=== PATIENT | female | born 1990 | race Caucasian/White ===

== ENCOUNTER 2020-06-20 08:19 | Emergency (ER) | payer OTHER, SELFPAY ==
[2020-06-20 08:33] VITALS: BP 129/87; BP 132/66; PULSE 65; RESP 16; TEMP 36.7; O2SAT 100; O2SAT 99; BMI 21.7
--- NOTE | 2020-06-20 08:51 | US_ITS ---
EXAMINATION: US ABDOMEN LIMITED CLINICAL INFORMATION: Epigastric pain, nausea, vomiting. Question gallstone.. COMPARISON: CT 10/12/2019 TECHNIQUE: Real-time imaging of the right upper quadrant abdominal viscera. FINDINGS: PANCREAS: The visualized head and body of the pancreas appears unremarkable. Remainder of the pancreas is obscured by bowel gas. LIVER: Normal. The liver is normal in size. The liver contour is normal. Parenchymal echogenicity is normal. No focal hepatic lesion. There is no intrahepatic biliary duct dilatation seen. GALLBLADDER: Normal. The gallbladder is physiologically distended without evidence of stones, sludge, polyps, wall thickening or pericholecystic fluid. COMMON BILE DUCT: Normal in caliber measuring 0.3 cm in diameter. RIGHT KIDNEY: Normal. No hydronephrosis. No renal calculi or focal parenchymal lesions. The kidney measures 9.9 cm in maximum dimension. FREE FLUID: None. US/US abdomen limited IMPRESSION: Unremarkable abdominal ultrasound. No evidence of gallstones. No acute findings seen.
[2020-06-20 09:03] LABS: MANUAL DIFF FLAG NO
[2020-06-20 09:06] LABS: Basophils Percent Auto 0.2 % (0-2); Eosinophils Percent Auto 0.3 % (0-4); Hematocrit 33.1 % (37-47); Hemoglobin 10.5 g/dl (12.0-16.0); Imm Gran Abs Auto 0.02 X10*3/uL (0.00-0.03); Imm Gran Pct Auto 0.3 % (0.0-0.4); Lymphocytes Absolute Auto 0.9 X10*3/uL (1.2-4.9); Mean Corpuscular HGB Conc 31.7 g/dl (31.0-35.0); Mean Corpuscular Hemoglobin 22.5 pg (27.0-33.0); Mean Platelet Volume 9.3 fL (9.4-12.3); Monocytes Absolute Auto 0.1 X10*3/uL (0.1-1.2); Neutrophils Absolute Auto 5.3 X10*3/uL (2.0-8.3); Neutrophils Percent Auto 83.2 % (45-73); Platelet Count 401 X10*3/uL (160-400); Red Blood Count 4.66 X10*6/uL (4.20-5.50); Red Cell Distribution Width 19.9 % (11.0-16.0); White Blood Count 6.4 X10*3/uL (4.8-10.8)
[2020-06-20 09:12] LABS: INTERNATIONAL NORM RATIO 1.1 (0.9-1.1); Prothrombin Time 13.6 SEC (10.8-13.0)
[2020-06-20] MEDS: 0.9 % Sodium Chloride 1,000 ML 999 ML IVCONT (09:33)
[2020-06-20] MEDS: Ketorolac Tromethamine 15 MG/ML VIAL 30 MG IV (09:33)
[2020-06-20] MEDS: ondansetron HCL 4 MG/2 ML VIAL IVPUSH (09:33)
[2020-06-20 09:42] VITALS: BP 125/56; PULSE 54; RESP 18; O2SAT 99
[2020-06-20 09:49] LABS: Alanine Aminotransferase < 6 U/L (0-31); Albumin Level 4.5 g/dL (3.5-5.0); Alkaline Phosphatase 76 U/L (39-117); Anion Gap 13 (12-20); Aspartate Amino Transferase 12 U/L (5-31); Bilirubin Direct 0.4 mg/dL (0.0-0.5); Bilirubin Total 0.9 mg/dL (0.0-1.0); Blood Urea Nitrogen 9 mg/dL (9-16); Calcium 9.1 mg/dL (8.4-10.2); Carbon Dioxide 23 mmol/L (22-29); Chloride 105 mmol/L (96-108); Creatinine Clr Calc Pharmacy 90.7; Estimated Glomerular Filt Rate > 60; Glucose Random 104 mg/dL (60-115); Lipase 7 U/L (8-78); Potassium 4.4 mmol/l (3.3-5.1); Sodium 137 mmol/L (135-145); Total Protein 7.6 g/dL (6.5-8.0)
--- NOTE | 2020-06-20 09:56 | ED.ABDPAIN ---
HPI - Abdominal Pain General Chief Complaint: Abdominal Pain <ANGELITA Macedo Last Filed: 06/20/20 12:30> Stated Complaint: Chest Pain /N/V <ANGELITA Macedo Last Filed: 06/20/20 12:30> Time Seen by Provider: 06/20/20 08:40 <ANGELITA Macedo Last Filed: 06/20/20 12:30> Source: patient <ANGELITA Macedo Last Filed: 06/20/20 12:30> Mode of arrival: ambulatory <ANGELITA Macedo Last Filed: 06/20/20 12:30> Limitations: no limitations <ANGELITA Macedo Last Filed: 06/20/20 12:30> History of Present Illness HPI narrative: 29yoF c PMHx of anxiety, depression, asthma and renal calculi presenting to the ED with complaints of nausea/vomiting with epigastric abdominal pain since 02:00am radiating to chest. Denies bad food exposure. Denies recent travel. Denies sick contacts. Reports she is anxious over increased shootings in [place]. Denies any SI/HI/auditory visual hallucinations thoughts of self-injury. <ANGELITA Macedo Last Filed: 06/20/20 12:30> Related Data Home Medications: Previous Rx's Medication Instructions Recorded diphenhydramine HCl [Benadryl 50 mg PO Q8H PRN #10 tab 06/20/20 Allergy] famotidine [Pepcid] 20 mg PO BID #10 tab 06/20/20 metoclopramide HCl [Reglan] 10 mg PO Q6H PRN #10 tab 06/20/20 <ANGELITA Macedo Last Filed: 06/20/20 12:30> Allergies/Adverse Reactions: Allergies Allergy/AdvReac Type Severity Reaction Status Date / Time hydroxyprogesterone Allergy Severe ANAPHYLAXIS Verified 06/20/20 08:36 [From MOISÉS] strawberry [STRAWBERRY] Allergy Unknown ANAPHYLAXIS Verified 06/20/20 08:36 SEAFOOD Allergy Unknown SHORTNESS Uncoded 03/23/20 17:36 OF BREATH seafood Allergy Unknown anaphylaxis Uncoded 01/18/20 00:00 shellfish Allergy Unknown anaphylaxis Uncoded 01/18/20 00:00 strawberries Allergy Unknown swelling Uncoded 01/18/20 00:00 of lips and tongue <ANGELITA Macedo - Last Filed: 06/20/20 12:30> Review of Systems Review of Systems Constitutional : No Weight loss, No Fever, No Chills, No Fatigue, No Malaise ENT/Mouth: No sore throat, No Difficulty swallowing Cardiovascular : No Chest Pain, No SOB Respiratory : No Cough Gastrointestinal : + Nausea, + Vomiting, No Diarrhea, + abdominal Pain, no hemoptysis, No Hematochezia, No Melena Genitourinary : No irregular bleeding, No Dysuria, No Urinary Frequency, No Hematuria,No Urinary Incontinence, No Urgency, No Flank Pain Musculoskeletal : No joint pain, No Myalgias, No Joint Swelling Skin : No Skin Lesions, No rash Neuro : No Weakness, No Numbness, No Paresthesias, No Loss of Consciousness, No Dizziness, No Headache Psych : No Social Issues, Heme/Lymph: No Bruising, No Bleeding,No Lymphadenopathy Endocrine : No Polyuria, No Polydipsia, No Temperature Intolerance <ANGELITA Macedo - Last Filed: 06/20/20 12:30> Yes all other systems are reviewed and are negative <ANGELITA Macedo - Last Filed: 06/20/20 12:30> Physical Exam Vital Signs: Vital Signs: Last Vital Signs Temp 98.3 F 06/20/20 12:07 Pulse 55 06/20/20 12:07 Resp 16 06/20/20 12:07 BP 108/71 06/20/20 12:07 Pulse Ox 100 06/20/20 12:07 Body Mass Index 21.7 vital signs have been reviewed as normal and appeared to be correct. Blood pressure normal. Heart rate normal. Respiration rate normal. Temperature normal. Oxygen saturation normal. <ANGELITA Macedo - Last Filed: 06/20/20 12:30> Vital Signs: Last Vital Signs Temp 98.3 F 06/20/20 12:07 Pulse 55 06/20/20 12:07 Resp 16 06/20/20 12:07 BP 108/71 06/20/20 12:07 Pulse Ox 100 06/20/20 12:07 Body Mass Index 21.7 <Hung Grande MD - Last Filed: 07/02/20 09:09> Appearance: Alert. Oriented X3. No acute distress. Head: Normal external exam. Normocephalic. Eyes: PERRLA. EOMI. Conjunctiva and sclera normal. Eyelids normal. ENT: Pharynx normal. Uvula midline. Moist mucous membranes. Neck: Normal inspection. Neck supple. FROM. No adenopathy. No meningeal signs. CVS: Normal heart rate and rhythm. Heart sound normal. No murmurs noted. Pulses normal throughout. Respiratory: No respiratory distress. Painless inspiration. Breath sounds normal. No wheezes/rales/rhonchi noted. Chest nontender. No accessory muscle usage noted or decreased air movement noted. Abdomen: Soft and TTP at upper/epigastric/RUQ abdomen with guarding. No rigidity. Negative Acevedo sign. Bowel sounds normal in all 4 quadrants. No distention noted. No organomegaly noted. No visible injury noted. No rebound tenderness. Negative Rovsing sign. Negative obturator's sign. Negative psoas sign. Back: No CVA tenderness. Full range of motion noted. Skin: Skin warm and dry. Normal skin color. Normal skin turgor. No rashes/lesions/lacerations noted. Extremities: Extremities exhibit normal range of motion. Extremities nontender. Neuro: Oriented X 3. No motor deficit. No sensory deficit. Reflexes normal. <ANGELITA Macedo - Last Filed: 06/20/20 12:30> Course Course Course Narrative: 8:40am - 29yoF c PMHx of anxiety, depression, asthma and renal calculi presenting to the ED with complaints of nausea/vomiting with epigastric abdominal pain since 02:00am radiating to chest. - on exam vitals are within normal limits. Patient is tender to palpation to epigastric/right upper quadrant abdomen with dry heaving. Otherwise no other acute distress. - Concern for cholecystitis vs pancreatitis vs Viral syndrome - Plan: Labs, US of abd. Provide IVF's, zofran, toradol then re-evaluate <ANGELITA Macedo - Last Filed: 06/20/20 12:30> I have reviewed the chart <Hung Grande MD - Last Filed: 07/02/20 09:09> Reevaluation(s) Reevaluation #1: - Labs WNL. COVID/RSV/flu negative. Abdominal ultrasound negative for any acute processes. Serum negative. - patient still complaining of nausea therefore will give Benadryl Reglan at this time and re-evaluate. <ANGELITA Macedo - Last Filed: 06/20/20 12:30> Time: 10:30 <ANGELITA Macedo - Last Filed: 06/20/20 12:30> Reevaluation #2: Patient reports she feels a little bit nausea although her vomiting improved after the Benadryl and Reglan. Will give 12.5 mg of Phenergan and DC home with symptomatic treatment along with instructions to return if any new or worsening symptoms to follow-up with primary care provider. Patient understands agrees the plan. <ANGELITA Macedo - Last Filed: 06/20/20 12:30> Time: 12:29 <ANGELITA Macedo - Last Filed: 06/20/20 12:30> MDM - Abdominal Pain Medical Records Attestation: I reviewed the patient's medical records. <ANGELITA Macedo - Last Filed: 06/20/20 12:30> Lab Data Attestation: I reviewed the patient's lab results. <ANGELITA Macedo - Last Filed: 06/20/20 12:30> Result diagrams: : 06/20/20 08:58 06/20/20 08:57 <ANGELITA Macedo - Last Filed: 06/20/20 12:30> Labs: Lab Results 06/20/20 06/20/20 06/20/20 Range/Units 08:57 08:57 08:57 WBC (4.8-10.8) X10*3/uL RBC (4.20-5.50) X10*6/uL Hgb (12.0-16.0) g/dl Hct (37-47) % MCV (80-98) fL MCH (27.0-33.0) pg MCHC (31.0-35.0) g/dl RDW (11.0-16.0) % Plt Count (160-400) X10*3/uL MPV (9.4-12.3) fL Immature Gran % (Auto) (0.0-0.4) % Neut % (Auto) (45-73) % Lymph % (Auto) (20-40) % [place] % (Auto) (2-11) % Eos % (Auto) (0-4) % Baso % (Auto) (0-2) % Lymph # (Auto) (1.2-4.9) X10*3/uL [place] # (Auto) (0.1-1.2) X10*3/uL Eos # (Auto) (0.0-0.4) X10*3/uL Baso # (Auto) (0.0-0.2) X10*3/uL Abs Immat Gran (auto) (0.00-0.03) X10*3/uL Absolute Neuts (auto) (2.0-8.3) X10*3/uL Absolute Nucleated RBC (0.0-0.012) X10*3/uL Nucleated RBC % (auto) (0.0-0.2) /100WBC Hold Purple Top SEE NOTE PT 13.6 H (10.8-13.0) SEC INR 1.1 (0.9-1.1) Sodium 137 (135-145) mmol/L Potassium 4.4 (3.3-5.1) mmol/l Chloride 105 (96-108) mmol/L Carbon Dioxide 23 (22-29) mmol/L Anion Gap 13 (12-20) BUN 9 (9-16) mg/dL Creatinine 0.69 (0.5-1.4) mg/dL Estim Creat Clear Calc 90.7 Estimated GFR > 60 Random Glucose 104 (60-115) mg/dL Calcium 9.1 (8.4-10.2) mg/dL Magnesium 2.0 (1.6-2.6) mg/dL Total Bilirubin 0.9 (0.0-1.0) mg/dL Direct Bilirubin 0.4 (0.0-0.5) mg/dL AST 12 (5-31) U/L ALT < 6 (0-31) U/L Alkaline Phosphatase 76 (39-117) U/L Total Protein 7.6 (6.5-8.0) g/dL Albumin 4.5 (3.5-5.0) g/dL Lipase 7 L (8-78) U/L Beta HCG, Quant < 2 mIU/mL Coronavirus (PCR) (Negative) Influenza Type A (PCR) (Negative) Influenza Type B (PCR) (Negative) RSV RNA Qual (PCR) (Negative) 06/20/20 06/20/20 Range/Units 08:58 09:24 WBC 6.4 (4.8-10.8) X10*3/uL RBC 4.66 (4.20-5.50) X10*6/uL Hgb 10.5 L (12.0-16.0) g/dl Hct 33.1 L (37-47) % MCV 71.0 L (80-98) fL MCH 22.5 L (27.0-33.0) pg MCHC 31.7 (31.0-35.0) g/dl RDW 19.9 H (11.0-16.0) % Plt Count 401 H (160-400) X10*3/uL MPV 9.3 L (9.4-12.3) fL Immature Gran % (Auto) 0.3 (0.0-0.4) % Neut % (Auto) 83.2 H (45-73) % Lymph % (Auto) 14.0 L (20-40) % [place] % (Auto) 2.0 (2-11) % Eos % (Auto) 0.3 (0-4) % Baso % (Auto) 0.2 (0-2) % Lymph # (Auto) 0.9 L (1.2-4.9) X10*3/uL [place] # (Auto) 0.1 (0.1-1.2) X10*3/uL Eos # (Auto) 0.0 (0.0-0.4) X10*3/uL Baso # (Auto) 0.0 (0.0-0.2) X10*3/uL Abs Immat Gran (auto) 0.02 (0.00-0.03) X10*3/uL Absolute Neuts (auto) 5.3 (2.0-8.3) X10*3/uL Absolute Nucleated RBC 0.000 (0.0-0.012) X10*3/uL Nucleated RBC % (auto) 0.0 (0.0-0.2) /100WBC Hold Purple Top PT (10.8-13.0) SEC INR (0.9-1.1) Sodium (135-145) mmol/L Potassium (3.3-5.1) mmol/l Chloride (96-108) mmol/L Carbon Dioxide (22-29) mmol/L Anion Gap (12-20) BUN (9-16) mg/dL Creatinine (0.5-1.4) mg/dL Estim Creat Clear Calc Estimated GFR Random Glucose (60-115) mg/dL Calcium (8.4-10.2) mg/dL Magnesium (1.6-2.6) mg/dL Total Bilirubin (0.0-1.0) mg/dL Direct Bilirubin (0.0-0.5) mg/dL AST (5-31) U/L ALT (0-31) U/L Alkaline Phosphatase (39-117) U/L Total Protein (6.5-8.0) g/dL Albumin (3.5-5.0) g/dL Lipase (8-78) U/L Beta HCG, Quant mIU/mL Coronavirus (PCR) NEGATIVE (Negative) Influenza Type A (PCR) NEGATIVE (Negative) Influenza Type B (PCR) NEGATIVE (Negative) RSV RNA Qual (PCR) NEGATIVE (Negative) <ANGELITA Macedo - Last Filed: 06/20/20 12:30> Lab Results 06/20/20 06/20/20 06/20/20 Range/Units 08:57 08:57 08:57 WBC (4.8-10.8) X10*3/uL RBC (4.20-5.50) X10*6/uL Hgb (12.0-16.0) g/dl Hct (37-47) % MCV (80-98) fL MCH (27.0-33.0) pg MCHC (31.0-35.0) g/dl RDW (11.0-16.0) % Plt Count (160-400) X10*3/uL MPV (9.4-12.3) fL Immature Gran % (Auto) (0.0-0.4) % Neut % (Auto) (45-73) % Lymph % (Auto) (20-40) % [place] % (Auto) (2-11) % Eos % (Auto) (0-4) % Baso % (Auto) (0-2) % Lymph # (Auto) (1.2-4.9) X10*3/uL [place] # (Auto) (0.1-1.2) X10*3/uL Eos # (Auto) (0.0-0.4) X10*3/uL Baso # (Auto) (0.0-0.2) X10*3/uL Abs Immat Gran (auto) (0.00-0.03) X10*3/uL Absolute Neuts (auto) (2.0-8.3) X10*3/uL Absolute Nucleated RBC (0.0-0.012) X10*3/uL Nucleated RBC % (auto) (0.0-0.2) /100WBC Hold Purple Top SEE NOTE PT 13.6 H (10.8-13.0) SEC INR 1.1 (0.9-1.1) Sodium 137 (135-145) mmol/L Potassium 4.4 (3.3-5.1) mmol/l Chloride 105 (96-108) mmol/L Carbon Dioxide 23 (22-29) mmol/L Anion Gap 13 (12-20) BUN 9 (9-16) mg/dL Creatinine 0.69 (0.5-1.4) mg/dL Estim Creat Clear Calc 90.7 Estimated GFR > 60 Random Glucose 104 (60-115) mg/dL Calcium 9.1 (8.4-10.2) mg/dL Magnesium 2.0 (1.6-2.6) mg/dL Total Bilirubin 0.9 (0.0-1.0) mg/dL Direct Bilirubin 0.4 (0.0-0.5) mg/dL AST 12 (5-31) U/L ALT < 6 (0-31) U/L Alkaline Phosphatase 76 (39-117) U/L Total Protein 7.6 (6.5-8.0) g/dL Albumin 4.5 (3.5-5.0) g/dL Lipase 7 L (8-78) U/L Beta HCG, Quant < 2 mIU/mL Coronavirus (PCR) (Negative) Influenza Type A (PCR) (Negative) Influenza Type B (PCR) (Negative) RSV RNA Qual (PCR) (Negative) 06/20/20 06/20/20 Range/Units 08:58 09:24 WBC 6.4 (4.8-10.8) X10*3/uL RBC 4.66 (4.20-5.50) X10*6/uL Hgb 10.5 L (12.0-16.0) g/dl Hct 33.1 L (37-47) % MCV 71.0 L (80-98) fL MCH 22.5 L (27.0-33.0) pg MCHC 31.7 (31.0-35.0) g/dl RDW 19.9 H (11.0-16.0) % Plt Count 401 H (160-400) X10*3/uL MPV 9.3 L (9.4-12.3) fL Immature Gran % (Auto) 0.3 (0.0-0.4) % Neut % (Auto) 83.2 H (45-73) % Lymph % (Auto) 14.0 L (20-40) % [place] % (Auto) 2.0 (2-11) % Eos % (Auto) 0.3 (0-4) % Baso % (Auto) 0.2 (0-2) % Lymph # (Auto) 0.9 L (1.2-4.9) X10*3/uL [place] # (Auto) 0.1 (0.1-1.2) X10*3/uL Eos # (Auto) 0.0 (0.0-0.4) X10*3/uL Baso # (Auto) 0.0 (0.0-0.2) X10*3/uL Abs Immat Gran (auto) 0.02 (0.00-0.03) X10*3/uL Absolute Neuts (auto) 5.3 (2.0-8.3) X10*3/uL Absolute Nucleated RBC 0.000 (0.0-0.012) X10*3/uL Nucleated RBC % (auto) 0.0 (0.0-0.2) /100WBC Hold Purple Top PT (10.8-13.0) SEC INR (0.9-1.1) Sodium (135-145) mmol/L Potassium (3.3-5.1) mmol/l Chloride (96-108) mmol/L Carbon Dioxide (22-29) mmol/L Anion Gap (12-20) BUN (9-16) mg/dL Creatinine (0.5-1.4) mg/dL Estim Creat Clear Calc Estimated GFR Random Glucose (60-115) mg/dL Calcium (8.4-10.2) mg/dL Magnesium (1.6-2.6) mg/dL Total Bilirubin (0.0-1.0) mg/dL Direct Bilirubin (0.0-0.5) mg/dL AST (5-31) U/L ALT (0-31) U/L Alkaline Phosphatase (39-117) U/L Total Protein (6.5-8.0) g/dL Albumin (3.5-5.0) g/dL Lipase (8-78) U/L Beta HCG, Quant mIU/mL Coronavirus (PCR) NEGATIVE (Negative) Influenza Type A (PCR) NEGATIVE (Negative) Influenza Type B (PCR) NEGATIVE (Negative) RSV RNA Qual (PCR) NEGATIVE (Negative) <Hung Grande MD - Last Filed: 07/02/20 09:09> Imaging Data US - abdomen: Attestation: I personally reviewed and interpreted this imaging study as follows: <ANGELITA Macedo - Last Filed: 06/20/20 12:30> Radiologist's impression: IMPRESSION: Unremarkable abdominal ultrasound. No evidence of gallstones. No acute findings seen. <ANGELITA Macedo - Last Filed: 06/20/20 12:30> Discharge Plan Discharge Clinical Impression: Acute viral syndrome, Abdominal pain, Nausea & vomiting <ANGELITA Macedo - Last Filed: 06/20/20 12:30> Patient Disposition: Home, Self-Care <ANGELITA Macedo - Last Filed: 06/20/20 12:30> Instructions: Acute Nausea and Vomiting (ED), Viral Syndrome (ED), Abdominal Pain (ED) <ANGELITA Macedo Last Filed: 06/20/20 12:30> Prescriptions: New metoclopramide HCl [Reglan] 10 mg tablet 10 mg PO Q6H PRN (Reason: nausea and vomiting) Qty: 10 RF: 0 diphenhydramine HCl [Benadryl Allergy] 25 mg tablet 50 mg PO Q8H PRN (Reason: nausea and vomiting) Qty: 10 RF: 0 famotidine [Pepcid] 20 mg tablet 20 mg PO BID Qty: 10 RF: 0 <ANGELITA Macedo - Last Filed: 06/20/20 12:30> Referrals: Po,Horacio Giraldo MD [Primary Care Provider] - 2 days <ANGELITA Macedo - Last Filed: 06/20/20 12:30> Stand Alone Forms: Work/School Release <ANGELITA Macedo - Last Filed: 06/20/20 12:30> Interventions: ED Discharge Assessment Last Done: 06/20/20 13:28 <ANGELITA Macedo - Last Filed: 06/20/20 12:30> Discharge Date/Time: 06/20/20 13:28 <ANGELITA Macedo - Last Filed: 06/20/20 12:30> Print Language: [place] <ANGELITA Macedo - Last Filed: 06/20/20 12:30> [facility]LY [facility] Past Medical History Attestation statement: The following information was validated with the patient. <ANGELITA Macedo - Last Filed: 06/20/20 12:30> Medical History: Medical History Anxiety and depression Asthma Renal calculi <ANGELITA Macedo - Last Filed: 06/20/20 12:30> Social History Social History: Social History Smoking Status: Never smoker Use of substances other than those prescribed or required for medical reasons: Yes Substance Use Type: Marijuana Advance Directives: No Advance Directives Information Provided: No <ANGELITA Macedo - Last Filed: 06/20/20 12:30>
[2020-06-20 10:07] LABS: Influenza A PCR NEGATIVE (Negative); Influenza B PCR NEGATIVE (Negative); Resp Syncy Virus RNA Qual PCR NEGATIVE (Negative); SARS COV2 PCR INHOUSE NEGATIVE (Negative)
[2020-06-20] MEDS: Metoclopramide HCl 10 MG/2 ML VIAL IVPUSH (10:58)
[2020-06-20] MEDS: diphenhydrAMINE HCL 50 MG/ML VIAL 25 MG IVPUSH (10:58)
[2020-06-20 12:05] LABS: HCG Quantitative < 2 mIU/mL
[2020-06-20 12:07] VITALS: BP 108/71; PULSE 55; RESP 16; TEMP 36.8; O2SAT 100
--- NOTE | 2020-06-20 12:09 | PC.NURSE ---
pt reporting ongoing nausea. abd pain resolved. has been unable to provide urine specimen. all vs wnl.
== END 2020-06-20 13:28 | disposition home or self-care (01) ==
PROVIDERS: Physician Assistant Medical; Emergency Provider Emergency Medicine; PCP Internal Medicine
DX: R10.13 Epigastric pain (principal); R11.14 Bilious vomiting; F41.1 Generalized anxiety disorder; F43.0 Acute stress reaction; F12.90 Cannabis use, unspecified, uncomplicated; Z79.899 Other long term (current) drug therapy; Z20.828 Contact with and (suspected) exposure to other viral communicable diseases
CPT/HCPCS: 0241U; 36415; 76705; 80048; 80076; 83690; 83735; 84702; 85025; 85610; 96361; 96374; 96375; 99284; J1200; J1885; J2405; J2765

== ENCOUNTER → 2020-09-04 14:47 | Outpatient (BNVA) | payer OTHER, SELFPAY | PROVIDERS: PCP Internal Medicine; Visit Provider Advanced Practice Midwife | DX: O26.899 Other specified pregnancy related conditions, unspecified trimester (principal); E86.0 Dehydration; R10.9 Unspecified abdominal pain | CPT/HCPCS: 81025; 99212 ==

== ENCOUNTER 2020-09-04 17:19 | Emergency (ER) | payer OTHER, SELFPAY ==
--- NOTE | ~2020-09-04 | US_ITS ---
EXAMINATION: US RETROPERITONEAL COMPLETE (RENAL) CLINICAL INFORMATION: Right lower quadrant abdominal pain. COMPARISON: CT abdomen pelvis 10/12/2019 and abdominal ultrasound 06/20/2020 TECHNIQUE: Real-time imaging of the kidneys and bladder. FINDINGS: RIGHT KIDNEY: 11.8 x 4.4 x 5.9 cm (SAG x AP x TRV). The kidney is normal in size, contour, and echogenicity. Renal cortical thickness is normal. A lower pole echogenic focus measuring 2 mm was seen consistent with a nonobstructing calculus. No other calculi or focal parenchymal lesions. No hydronephrosis. LEFT KIDNEY: 12.2 x 5.9 x 5.4 cm (SAG x AP x TRV). The kidney is normal in size, contour, and echogenicity. Renal cortical thickness is normal. A 3 mm mid pole echogenic focus is seen consistent with a nonobstructing calculus. No other calculi or focal parenchymal lesions. No hydronephrosis. BLADDER: Well distended and normal. Ureteral jet was not seen on the right was noted on the left. Prevoid bladder volume is 150 mL. Postvoid bladder volume is 0 mL. US/US retroperitoneal comp IMPRESSION: Bilateral nonobstructing renal calculi. A ureteral jet was not seen on the right. At the time of the patient's prior CT scan, a single calculus was noted in each kidney.
--- NOTE | ~2020-09-04 | US_ITS ---
EXAMINATION: RIGHT LOWER QUADRANT ULTRASOUND CLINICAL INFORMATION: Right lower quadrant pain with question of appendicitis. COMPARISON: CT abdomen pelvis 10/12/2019 TECHNIQUE: A linear ultrasound transducer was used to examine the area of patient's pain in the right lower quadrant. FINDINGS: The appendix could not be seen and therefore the exam is indeterminate. Peristalsing bowel was noted in the right lower quadrant. The right ovary was identified and appeared normal measuring 3.2 x 1.1 x 2.9 cm for a volume of 5.2 mL. No free pelvic fluid was seen. US/US appendix IMPRESSION: The appendix was not visualized and therefore the study is indeterminate for appendicitis. On the prior CT scan from 2019, the appendix was noted to be deep in the pelvis slightly to the right of the midline and appeared entirely normal.
[2020-09-04 17:34] VITALS: BP 127/89; PULSE 87; RESP 18; TEMP 36.8; O2SAT 98; BMI 20.9
[2020-09-04 18:04] LABS: MANUAL DIFF FLAG NO
[2020-09-04 18:06] LABS: Basophils Percent Auto 0.2 % (0-2); Eosinophils Absolute Auto 0.2 X10*3/uL (0.0-0.4); Eosinophils Percent Auto 1.8 % (0-4); Hematocrit 33.4 % (37-47); Hemoglobin 10.8 g/dl (12.0-16.0); Imm Gran Abs Auto 0.04 X10*3/uL (0.00-0.03); Imm Gran Pct Auto 0.3 % (0.0-0.4); Lymphocytes Absolute Auto 2.4 X10*3/uL (1.2-4.9); Lymphocytes Percent Auto 20.4 % (20-40); Mean Corpuscular HGB Conc 32.3 g/dl (31.0-35.0); Mean Corpuscular Volume 71.1 fL (80-98); Mean Platelet Volume 9.7 fL (9.4-12.3); Monocytes Absolute Auto 0.7 X10*3/uL (0.1-1.2); Monocytes Percent Auto 6.3 % (2-11); Neutrophils Absolute Auto 8.4 X10*3/uL (2.0-8.3); Platelet Count 340 X10*3/uL (160-400); Red Cell Distribution Width 23.3 % (11.0-16.0); White Blood Count 11.8 X10*3/uL (4.8-10.8)
[2020-09-04 18:26] LABS: Alanine Aminotransferase 8 U/L (0-31); Albumin Level 4.2 g/dL (3.5-5.0); Alkaline Phosphatase 66 U/L (39-117); Anion Gap 13 (12-20); Aspartate Amino Transferase 12 U/L (5-31); Bilirubin Total 0.6 mg/dL (0.0-1.0); Blood Urea Nitrogen 9 mg/dL (9-16); Calcium 8.8 mg/dL (8.4-10.2); Carbon Dioxide 24 mmol/L (22-29); Chloride 103 mmol/L (96-108); Creatinine Clr Calc Pharmacy 104.4; Estimated Glomerular Filt Rate > 60; Glucose Random 81 mg/dL (60-115); Lipase 17 U/L (8-78); Potassium 3.6 mmol/L (3.3-5.1); Sodium 136 mmol/L (135-145); Total Protein 7.4 g/dL (6.5-8.0)
[2020-09-04 18:29] LABS: Glucose Urine UA NEG (NEG); Leukocyte Esterase Urine NEG (NEG); Nitrite Urine NEG (NEG); Specific Gravity - Urine 1.025 (1.005-1.025); Urine Blood TRACE (NEG); Urine Ketones NEG (NEG); Urine Protein NEG (NEG-TRACE)
[2020-09-04 18:37] LABS: Appearance Urine CLEAR; Color Urine YELLOW
[2020-09-04 18:41] LABS: Bacteria Urine 1+ /LPF; Squamous Epithelial Cell Urine 2+ /LPF; WBC Urine 0 /HPF (0-4)
[2020-09-04 18:54] LABS: HCG Quantitative 60800 mIU/mL
--- NOTE | 2020-09-04 21:02 | ED_ITS ---
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 Patient has had nausea and vomiting for about 2 weeks, has had poor p.o. intake, and reports right lower quadrant abdominal pain. She does not report any fevers, chills, abuse, assault, vaginal discharge, vaginal bleeding, chest pain or pressure, palpitations, shortness of breath, abdominal distention, dysuria, hematuria, or edema. MD Complaint: abdominal pain Onset (ago): week(s) (2) Pain Consistency: constant Location: abdomen Severity: moderate Severity scale (1-10): 7 Quality: Aching Radiation: abdomen Relieving factors: none Exacerbating factors: eating and movement Associated symptoms: nausea and vomiting Vaginal discharge: none Vaginal bleeding: none Patient : Yes Number of Weeks : 11 OB History - Current : no complications OB History - Previous Pregnancies: no complications care: followed by OB Related Data : 3 Para: 2 Total number of abortions (spontaneous and elective): 0 Previous Rx's Medication Instructions Recorded ondansetron HCl [Zofran] 4 mg PO Q8H PRN #30 tab 09/04/20 Allergies Allergy/AdvReac Type Severity Reaction Status Date / Time hydroxyprogesterone Allergy Severe ANAPHYLAXIS Verified 09/04/20 17:34 [From MOISÉS] strawberry [STRAWBERRY] Allergy Unknown ANAPHYLAXIS Verified 09/04/20 17:34 SEAFOOD Allergy Unknown SHORTNESS Uncoded 09/04/20 16:13 OF BREATH seafood Allergy Unknown anaphylaxis Uncoded 09/04/20 16:13 shellfish Allergy Unknown anaphylaxis Uncoded 09/04/20 16:13 strawberries Allergy Unknown swelling Uncoded 09/04/20 16:13 of lips and tongue Review of Systems Review of Systems: Constitutional: No Fever, No Chills ENT/Mouth: No sore throat Eyes: No Eye Pain, No Swelling, No Redness Cardiovascular: No Chest Pain, No SOB Respiratory: No Cough, No Sputum, No Wheezing Gastrointestinal: positive Nausea, positive Vomiting, positive abdominal pain Genitourinary: No Dysuria, no urinary frequency, no Hematuria, no Flank Pain, no hesitancy Musculoskeletal: No joint pain, No Myalgias Skin: No Skin Lesions, No rash Neuro: No Weakness, No Numbness, No Headache Psych: No Anxiety/Panic, No Depression Heme/Lymph: No Bruising, No Lymphadenopathy Endocrine: No Polyuria, No Polydipsia Yes all other systems are reviewed and are negative PMF Past Medical History Medical History Anxiety and depression Asthma PTSD (post-traumatic stress disorder) Renal calculi : 3 Para: 2 Total number of abortions (spontaneous and elective): 0 Social History Social History Alcohol intake: never Smoking Status: Never smoker Substance Use Type: Marijuana Advance Directives: No Advance Directives Information Provided: Yes Sexual orientation: Straight/Heterosexual Gender identity: female Physical Exam Vital Signs: Vital Signs: Last Vital Signs Temp 98.4 F 09/04/20 22:28 Pulse 73 09/04/20 22:28 Resp 18 09/04/20 22:28 BP 119/71 09/04/20 22:28 Pulse Ox 100 09/04/20 22:28 Body Mass Index 20.9 Appearance: Alert. Oriented X3. No acute distress. Eyes: Pupils equal, round and reactive to light. EOMI, sclera not icteric ENT: Pharynx normal. Dry mucous membranes Neck: Normal inspection. Neck supple. CVS: Normal heart rate and rhythm. Pulses normal. Respiratory: No respiratory distress. Breath sounds normal. Abdomen: Soft and nontender. Skin: Skin warm and dry. Normal skin color. Normal skin turgor. Extremities: No lower extremity edema. Neuro: No motor deficit. No sensory deficit. 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 Will treat with 2 L of normal saline, Reglan and Benadryl. Will order ultrasound of appendix and retroperitoneal. Ultrasound indicates bilateral renal colic, appendix is not appreciated in this exam. Patient will be discharged home with Zofran as well as watchful waiting, has this could also be early appendicitis. Patient verbalized understanding of and agrees to plan of care to discharge home. Procedures Perimortem Number of Weeks : 11 MDM - OB/Uterine Contractions MDM Narrative Medical decision making narrative: Hyperemesis gravidarum, appendicitis, renal stones, ovarian cyst Medical Records Attestation: I reviewed the patient's medical records. Lab Data Attestation: I reviewed the patient's lab results. Result diagrams: 09/04/20 17:45 09/04/20 17:45 Labs: Lab Results 09/04/20 09/04/20 09/04/20 Range/Units 17:45 17:45 17:45 WBC 11.8 H (4.8-10.8) X10*3/uL RBC 4.70 (4.20-5.50) X10*6/uL Hgb 10.8 L (12.0-16.0) g/dl Hct 33.4 L (37-47) % MCV 71.1 L (80-98) fL MCH 23.0 L (27.0-33.0) pg MCHC 32.3 (31.0-35.0) g/dl RDW 23.3 H (11.0-16.0) % Plt Count 340 (160-400) X10*3/uL MPV 9.7 (9.4-12.3) fL Immature Gran % (Auto) 0.3 (0.0-0.4) % Neut % (Auto) 71.0 (45-73) % Lymph % (Auto) 20.4 (20-40) % Gilliam % (Auto) 6.3 (2-11) % Eos % (Auto) 1.8 (0-4) % Baso % (Auto) 0.2 (0-2) % Lymph # (Auto) 2.4 (1.2-4.9) X10*3/uL Gilliam # (Auto) 0.7 (0.1-1.2) X10*3/uL Eos # (Auto) 0.2 (0.0-0.4) X10*3/uL Baso # (Auto) 0.0 (0.0-0.2) X10*3/uL Abs Immat Gran (auto) 0.04 H (0.00-0.03) X10*3/uL Absolute Neuts (auto) 8.4 H (2.0-8.3) X10*3/uL Absolute Nucleated RBC 0.000 (0.0-0.012) X10*3/uL Nucleated RBC % (auto) 0.0 (0.0-0.2) /100WBC Hold Blue Top SEE NOTE Sodium (135-145) mmol/L Potassium (3.3-5.1) mmol/L Chloride (96-108) mmol/L Carbon Dioxide (22-29) mmol/L Anion Gap (12-20) BUN (9-16) mg/dL Creatinine (0.5-1.4) mg/dL Estim Creat Clear Calc Estimated GFR Random Glucose (60-115) mg/dL Calcium (8.4-10.2) mg/dL Total Bilirubin (0.0-1.0) mg/dL AST (5-31) U/L ALT (0-31) U/L Alkaline Phosphatase (39-117) U/L Total Protein (6.5-8.0) g/dL Albumin (3.5-5.0) g/dL Lipase (8-78) U/L Beta HCG, Quant mIU/mL Urine Color YELLOW Urine Appearance CLEAR Urine pH 6.0 (5.0-8.0) Ur Specific [place] 1.025 (1.005-1.025) Urine Protein NEG (NEG-TRACE) MG/DL Urine Glucose (UA) NEG (NEG) MG/DL Urine Ketones NEG (NEG) MG/DL Urine Blood TRACE (NEG) Urine Nitrite NEG (NEG) Ur Leukocyte Esterase NEG (NEG) Urine RBC 1-4 (0) /HPF Urine WBC 0 (0-4) /HPF Ur Squamous Epith Cells 2+ /LPF Urine Bacteria 1+ /LPF COVID-19 (BOO) (Negative) COVID-19 Clin Com 09/04/20 09/04/20 09/04/20 Range/Units 17:45 17:45 22:30 WBC (4.8-10.8) X10*3/uL RBC (4.20-5.50) X10*6/uL Hgb (12.0-16.0) g/dl Hct (37-47) % MCV (80-98) fL MCH (27.0-33.0) pg MCHC (31.0-35.0) g/dl RDW (11.0-16.0) % Plt Count (160-400) X10*3/uL MPV (9.4-12.3) fL Immature Gran % (Auto) (0.0-0.4) % Neut % (Auto) (45-73) % Lymph % (Auto) (20-40) % Gilliam % (Auto) (2-11) % Eos % (Auto) (0-4) % Baso % (Auto) (0-2) % Lymph # (Auto) (1.2-4.9) X10*3/uL Gilliam # (Auto) (0.1-1.2) X10*3/uL Eos # (Auto) (0.0-0.4) X10*3/uL Baso # (Auto) (0.0-0.2) X10*3/uL Abs Immat Gran (auto) (0.00-0.03) X10*3/uL Absolute Neuts (auto) (2.0-8.3) X10*3/uL Absolute Nucleated RBC (0.0-0.012) X10*3/uL Nucleated RBC % (auto) (0.0-0.2) /100WBC Hold Blue Top Sodium 136 (135-145) mmol/L Potassium 3.6 (3.3-5.1) mmol/L Chloride 103 (96-108) mmol/L Carbon Dioxide 24 (22-29) mmol/L Anion Gap 13 (12-20) BUN 9 (9-16) mg/dL Creatinine 0.60 (0.5-1.4) mg/dL Estim Creat Clear Calc 104.4 Estimated GFR > 60 Random Glucose 81 (60-115) mg/dL Calcium 8.8 (8.4-10.2) mg/dL Total Bilirubin 0.6 (0.0-1.0) mg/dL AST 12 (5-31) U/L ALT 8 (0-31) U/L Alkaline Phosphatase 66 (39-117) U/L Total Protein 7.4 (6.5-8.0) g/dL Albumin 4.2 (3.5-5.0) g/dL Lipase 17 (8-78) U/L Beta HCG, Quant 71064 mIU/mL Urine Color Urine Appearance Urine pH (5.0-8.0) Ur Specific [place] (1.005-1.025) Urine Protein (NEG-TRACE) MG/DL Urine Glucose (UA) (NEG) MG/DL Urine Ketones (NEG) MG/DL Urine Blood (NEG) Urine Nitrite (NEG) Ur Leukocyte Esterase (NEG) Urine RBC (0) /HPF Urine WBC (0-4) /HPF Ur Squamous Epith Cells /LPF Urine Bacteria /LPF COVID-19 (BOO) Negative (Negative) COVID-19 Clin Com See Note Imaging Data Ultrasound: Attestation: I personally reviewed and interpreted this imaging study as follows: Radiologist's impression: EXAMINATION: RIGHT LOWER QUADRANT ULTRASOUND CLINICAL INFORMATION: Right lower quadrant pain with question of appendicitis. COMPARISON: CT abdomen pelvis 10/12/2019 TECHNIQUE: A linear ultrasound transducer was used to examine the area of patient's pain in the right lower quadrant. FINDINGS: The appendix could not be seen and therefore the exam is indeterminate. Peristalsing bowel was noted in the right lower quadrant. The right ovary was identified and appeared normal measuring 3.2 x 1.1 x 2.9 cm for a volume of 5.2 mL. No free pelvic fluid was seen. US/US appendix IMPRESSION: The appendix was not visualized and therefore the study is indeterminate for appendicitis. On the prior CT scan from 2019, the appendix was noted to be deep in the pelvis slightly to the right of the midline and appeared entirely normal EXAMINATION: US RETROPERITONEAL COMPLETE (RENAL) CLINICAL INFORMATION: Right lower quadrant abdominal pain. COMPARISON: CT abdomen pelvis 10/12/2019 and abdominal ultrasound 06/20/2020 TECHNIQUE: Real-time imaging of the kidneys and bladder. FINDINGS: RIGHT KIDNEY: 11.8 x 4.4 x 5.9 cm (SAG x AP x TRV). The kidney is normal in size, contour, and echogenicity. Renal cortical thickness is normal. A lower pole echogenic focus measuring 2 mm was seen consistent with a nonobstructing calculus. No other calculi or focal parenchymal lesions. No hydronephrosis. LEFT KIDNEY: 12.2 x 5.9 x 5.4 cm (SAG x AP x TRV). The kidney is normal in size, contour, and echogenicity. Renal cortical thickness is normal. A 3 mm mid pole echogenic focus is seen consistent with a nonobstructing calculus. No other calculi or focal parenchymal lesions. No hydronephrosis. BLADDER: Well distended and normal. Ureteral jet was not seen on the right was noted on the left. Prevoid bladder volume is 150 mL. Postvoid bladder volume is 0 mL. US/US retroperitoneal comp IMPRESSION: Bilateral nonobstructing renal calculi. A ureteral jet was not seen on the right. At the time of the patient's prior CT scan, a single calculus was noted in each kidney. Discharge Plan Discharge Clinical Impression: Renal calculi, Hyperemesis gravidarum, Dehydration Patient Disposition: Home, Self-Care Instructions: Hyperemesis Gravidarum (ED), Dehydration (ED), Kidney Stones (ED) Additional Instructions: You were evaluated for right lower quadrant abdominal pain during , and intractable nausea and vomiting. Ultrasound of the abdomen indicates bilateral kidney stones that are not obstructing. Please use Zofran as needed for nausea. These medications dissolved under the tongue. Follow-up with RUPESH Price as scheduled. Thank you for choosing this emergency department for evaluation. Please follow-up with primary care physician as needed. Return to the emergency department for any new, concerning, or worsening symptoms. Prescriptions: New ondansetron HCl [Zofran] 4 mg tablet 4 mg PO Q8H PRN (Reason: nausea and vomiting) Qty: 30 RF: 0 Interventions: ED Discharge Assessment Last Done: 09/04/20 23:42 Discharge Date/Time: 09/04/20 23:42
[2020-09-04 22:28] VITALS: BP 119/71; PULSE 73; RESP 18; TEMP 36.9; O2SAT 100
[2020-09-04] MEDS: 0.9 % Sodium Chloride 1,000 ML 999 ML IVCONT ×2 (22:33)
[2020-09-04] MEDS: diphenhydrAMINE HCL 50 MG/ML VIAL 25 MG IVPUSH (22:33)
[2020-09-04] MEDS: Metoclopramide HCl 10 MG/2 ML VIAL IVPUSH (22:33)
[2020-09-04 23:12] LABS: COVID-19 Test Negative (Negative)
== END 2020-09-04 23:42 | disposition home or self-care (01) ==
PROVIDERS: Nurse Practitioner Family; Emergency Provider Emergency Medicine; PCP Internal Medicine
DX: O26.831 Pregnancy related renal disease, first trimester (principal); N20.0 Calculus of kidney; O21.1 Hyperemesis gravidarum with metabolic disturbance; Z3A.11 11 weeks gestation of pregnancy; Z20.822 Contact with and (suspected) exposure to COVID-19
CPT/HCPCS: 36415; 76705; 76770; 80053; 81001; 83690; 84702; 85025; 87635; 96361; 96374; 96375; 99283; 99284; J1200; J2765

== ENCOUNTER → 2020-09-14 10:16 | Outpatient (BNVA) | payer OTHER, SELFPAY | PROVIDERS: PCP Internal Medicine; Visit Provider Advanced Practice Midwife | DX: Z13.89 Encounter for screening for other disorder (principal) | CPT/HCPCS: 99212 ==

== ENCOUNTER 2020-09-22 14:20 | Outpatient (REF) | payer OTHER, SELFPAY ==
--- NOTE | ~2020-09-22 | US_ITS ---
EXAMINATION: OBSTETRICAL ULTRASOUND, FIRST TRIMESTER HISTORY: 29-year-old at 18.2 weeks of gestation NT screening COMPARISON: 08/09/2020 TECHNIQUE: Real time transabdominal imaging with color and M-mode Doppler. FINDINGS: A single, live IUP CRL of 83.7 mm c/w 14.2wks is noted. Heart Rate: 1:30 beats per minute. Normal yolk sac seen. NT was 2.9.mm. NB Present The embryo appears sonographically wnl for this GA. Both maternal ovaries are seen and appear normal. GESTATIONAL AGE: 1. Established GA: 18.2 wks 2. GA from [facility]: 14.2 wks ESTIMATED DATE OF DELIVERY: 1. Established MELVIN: 02/21/2021 2. MELVIN from [facility]: 03/21/2021 US/US OB limited IMPRESSION: 1. Single live IUP 2. Size less than dates, CRL corresponds to 14.2 weeks of gestation. Adjust her MELVIN to 03/21/2021 based on today's examination. 3. Normal NT for this gestational age. MFM Consultation: I informed the patient that her MELVIN should be adjusted to 03/21/2021 I reviewed the ultrasound findings along with significance of NT measurement. The NT of less than 3mm is generally reassuring. However, the sensitivity for T21 detection is only 60%. I reviewed the availability of serum aneuploidy screening which includes cell-free DNA and placental protein based tests. I discussed the sensitivity, false-positive rate, and other limitations associated with each test. I also reviewed the availability of invasive diagnostic tests that are associated small but definite risk of miscarriage. We also reviewed the differences between screening tests and diagnostic tests. After our discussion, she opted for the First trimester screening that is based on cell-free DNA or non-invasive testing (NIPT). The result will be faxed to your office in approximately 7 days. A follow up at 18 weeks for survey has been scheduled. Thank you very much for this referral. Total time 30 minutes. The time spent was devoted to counseling the patient about the disease and diagnosis, coordinating care including reviewing her records, pertinent lab data and studies, as well as discussing diagnostic evaluation and workup, plan therapeutic interventions and future disposition of care. This includes any additional research needed to obtain further information in formulating the plan of care of this patient. This note was generated with a voice recognition program. Please excuse any errors which may have been overlooked during my review of this note. Sometimes these errors may affect the content or meaning of a given sentence.
== END 2020-09-22 14:21 | disposition home or self-care (01) ==
LOC: HO.US 14:20
PROVIDERS: PCP Internal Medicine; Visit Provider Advanced Practice Midwife
DX: Z36.82 Encounter for antenatal screening for nuchal translucency (principal); Z34.92 Encounter for supervision of normal pregnancy, unspecified, second trimester; Z3A.18 18 weeks gestation of pregnancy
CPT/HCPCS: 76815

== ENCOUNTER 2020-10-20 14:19 | Outpatient (REF) | payer OTHER, SELFPAY ==
--- NOTE | ~2020-10-20 | US_ITS ---
EXAMINATION: US OBSTETRICAL CLINICAL INFORMATION: 29-year-old at 18.2 weeks of gestation Suspected anomaly Son with the bilateral club feet COMPARISON: 09/22/2020 TECHNIQUE: Real-time transabdominal ultrasound was performed using C1-5 megahertz transducer. FINDINGS: A single, active, fetus is seen in breech presentation. The placenta is anterior without previa, and the amniotic fluid volume is wnl. MEASUREMENTS: 1. Biparietal Diameter: 3.9 cm; 18.0 wks 2. Occipital Frontal Diameter: 5.0 cm 3. Head Circumference: 14.6 cm; 17.6 wks 4. Abdominal Circumference: 13.0 cm; 18.4 wks 5. Femur Length: 2.6 cm; 18.0 wks 6. Humerus Length: 2.6 cm; 18.1 wks 7. Tibia Length: 2.2 cm; 18.0 wks 8. Ulna Length: 2.3 cm; 18.2 wks 9. Lateral ventricle: 0.7 cm 10. Cerebellum: 1.8 cm; 18.4 wks 11. Cisterna Magna: 0.3 cm 12. Nuchal Fold: 3.1 mm 13. Heart Rate: 160 beats per minute Rt ovary: normal Lt ovary: normal Cervical length 3.7 cm on T/A. GESTATIONAL AGE: 1. Established GA: 18.2 wks 2. GA from [facility]: 18.1 wks ESTIMATED DATE OF DELIVERY: 1. Established MELVIN: 03/21/2021 2. MELVIN from [facility]: 03/22/2021 ANATOMY: Right choroid plexus cyst The visualized anatomy includes but not limited to: 1. Cranium: Normal 2. Intracranial anatomy: Right choroid plexus cyst, remainder of the intracranial anatomy was within normal limits including: cavum septum pellucidi, lateral ventricles, cerebellum, posterior fossa, third and fourth ventricles. 3. face: orbits, lip/palate, profile, nasal bone 4. Heart: four-chamber view of the heart, ventricular septum, foramen ovale, pulmonary vein, left and right outflow tracts, three-vessel view, 3 vessel trachea view, aortic and ductal arches, situs.. 5. Diaphragm: Normal 6. Abdominal wall: Normal 7. Cord Insertion: Normal 8. Spine: Cervical, thoracic, lumbar, sacral. 9. Stomach: Normal size and shape 10. Right Kidney: Normal 11. Left Kidney: Normal 12. 3 vessel cord: Normal 13. Upper extremity: Open hands, fifth digit. 14. Lower extremity: Tibia, fibula, bilateral feet. 15. Bladder: Normal 16. Genitalia: Female patient aware US/US OB /maternal detail IMPRESSION: 1. Single, living, intrauterine with appropriate biometry. 2. Isolated chorioplexus cyst. Remainder of the anatomy was within normal limits. There is no evidence of club feet. 3. Amniotic fluid volume: Within normal limits DISCUSSION: I reviewed today's ultrasound findings. Isolated the choroid plexus cyst was noted. I informed her that this is not a pathology or congenital abnormality. It resolves spontaneously and all fetuses. There is a weak association with trisomy 18. Her NIPT showed low risk for trisomy 18. In this setting, isolated choroid plexus cyst is considered to be a normal variant. We discussed the limitations of ultrasound in diagnosing aneuploidy and other congenital abnormalities. I reviewed the differences between screening test and diagnostic test. Amniocentesis was discussed and declined. She has a son who is now almost 2 years old born with bilateral clubfeet. After casting and surgical correction, his doing well. Given this history, the recurrence risk is approximately 3-5%. I reassured her that there is no evidence of club feet on today's examination. She was informed that the baseline incidence of congenital abnormalities is approximately 3-5%. Not all these conditions are diagnosable in utero. RECOMMENDATIONS: 1 follow-up when necessary Thank you for allowing me to participate in her care. Total time 30 minutes. The time spent was devoted to counseling the patient about the disease and diagnosis, coordinating care including reviewing her records, pertinent lab data and studies, as well as discussing diagnostic evaluation and workup, plan therapeutic interventions and future disposition of care. This includes any additional research needed to obtain further information in formulating the plan of care of this patient. This note was generated with a voice recognition program. Please excuse any errors which may have been overlooked during my review of this note. Sometimes these errors may affect the content or meaning of a given sentence.
== END 2020-10-20 14:20 | disposition home or self-care (01) ==
LOC: HO.US 14:19
PROVIDERS: PCP Internal Medicine; Visit Provider Advanced Practice Midwife
DX: O35.9XX0 Maternal care for (suspected) fetal abnormality and damage, unspecified, not applicable or unspecified (principal); Z3A.18 18 weeks gestation of pregnancy
CPT/HCPCS: 76811

== ENCOUNTER 2020-12-12 16:17 | Emergency (ER) | payer OTHER, SELFPAY ==
[2020-12-12 16:22] VITALS: BP 127/65; PULSE 96; RESP 18; TEMP 36.8; O2SAT 100; BMI 22.1
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
[2020-12-12] MEDS: Meclizine HCl 25 MG TABLET 50 MG PO (18:13)
[2020-12-12] MEDS: ondansetron HCL 4 MG/2 ML VIAL IVPUSH (18:13)
[2020-12-12] MEDS: 0.9 % Sodium Chloride 1,000 ML 999 ML IVCONT (18:18)
[2020-12-12 19:26] LABS: MANUAL DIFF FLAG NO
[2020-12-12 19:29] LABS: Basophils Percent Auto 0.1 % (0-2); Eosinophils Absolute Auto 0.1 X10*3/uL (0.0-0.4); Eosinophils Percent Auto 1.6 % (0-4); Hemoglobin 9.4 g/dl (12.0-16.0); Imm Gran Abs Auto 0.04 X10*3/uL (0.00-0.03); Imm Gran Pct Auto 0.4 % (0.0-0.4); Lymphocytes Absolute Auto 1.8 X10*3/uL (1.2-4.9); Lymphocytes Percent Auto 20.2 % (20-40); Mean Corpuscular HGB Conc 32.4 g/dl (31.0-35.0); Mean Corpuscular Hemoglobin 24.4 pg (27.0-33.0); Mean Corpuscular Volume 75.1 fL (80-98); Monocytes Absolute Auto 0.4 X10*3/uL (0.1-1.2); Monocytes Percent Auto 4.9 % (2-11); Neutrophils Absolute Auto 6.5 X10*3/uL (2.0-8.3); Neutrophils Percent Auto 72.8 % (45-73); Platelet Count 292 X10*3/uL (160-400); Red Blood Count 3.86 X10*6/uL (4.20-5.50); Red Cell Distribution Width 16.7 % (11.0-16.0); White Blood Count 8.9 X10*3/uL (4.8-10.8)
[2020-12-12 20:00] VITALS: BP 118/75; PULSE 64; RESP 16; TEMP 36.8; O2SAT 100
[2020-12-12 20:20] LABS: Alanine Aminotransferase < 6 U/L (0-31); Albumin Level 3.9 g/dL (3.5-5.0); Alkaline Phosphatase 80 U/L (39-117); Anion Gap 14 (12-20); Aspartate Amino Transferase 14 U/L (5-31); Bilirubin Direct 0.2 mg/dL (0.0-0.5); Bilirubin Total 0.7 mg/dL (0.0-1.0); Blood Urea Nitrogen 6 mg/dL (9-16); Calcium 9.2 mg/dL (8.4-10.2); Carbon Dioxide 20 mmol/L (22-29); Chloride 106 mmol/L (96-108); Creatinine Clr Calc Pharmacy 110.8; Estimated Glomerular Filt Rate > 60; Glucose Random 69 mg/dL (60-115); Lipase 38 U/L (8-78); Potassium 3.9 mmol/L (3.3-5.1); Sodium 136 mmol/L (135-145)
--- NOTE | 2020-12-12 21:49 | PC.NURSE ---
pt reports still feeling dizzy, nausea now gone. pt awake and alert, ambulatory in room.
== END 2020-12-12 22:01 | disposition home or self-care (01) ==
PROVIDERS: Emergency Provider Internal Medicine; PCP Internal Medicine
DX: O26.892 Other specified pregnancy related conditions, second trimester (principal); H81.11 Benign paroxysmal vertigo, right ear; Z3A.26 26 weeks gestation of pregnancy
CPT/HCPCS: 36415; 80048; 80076; 83690; 85025; 96361; 96374; 99283; 99284; J2405

== ENCOUNTER 2020-12-20 08:26 | Outpatient (REF) | payer OTHER, SELFPAY ==
[2020-12-20 13:49] LABS: CT PCR NOT DETECTED (Not Detect.); NG PCR NOT DETECTED (Not Detect.)
== END 2020-12-20 08:27 | disposition home or self-care (01) ==
LOC: HO.LAB 08:26
PROVIDERS: PCP Internal Medicine; Visit Provider Advanced Practice Midwife
DX: Z34.92 Encounter for supervision of normal pregnancy, unspecified, second trimester (principal); Z3A.27 27 weeks gestation of pregnancy; Z20.2 Contact with and (suspected) exposure to infections with a predominantly sexual mode of transmission
CPT/HCPCS: 87491; 87591; 99212

== ENCOUNTER 2022-08-16 14:38 | Outpatient (REF) | payer OTHER, SELFPAY ==
[2022-08-16 14:45] LABS: MANUAL DIFF FLAG NO
[2022-08-16 15:55] LABS: Basophils Percent Auto 0.4 % (0-2); Eosinophils Absolute Auto 0.1 X10*3/uL (0.0-0.4); Eosinophils Percent Auto 1.6 % (0-4); Hematocrit 39.3 % (37.0-47.0); Hemoglobin 13.1 g/dl (12.0-16.0); Imm Gran Abs Auto 0.02 X10*3/uL (0.00-0.03); Imm Gran Pct Auto 0.3 % (0.0-0.4); Lymphocytes Absolute Auto 2.1 X10*3/uL (1.2-4.9); Lymphocytes Percent Auto 28.8 % (20-40); Mean Corpuscular HGB Conc 33.3 g/dl (31.0-35.0); Mean Corpuscular Hemoglobin 26.3 pg (27.0-33.0); Mean Corpuscular Volume 78.9 fL (80.0-98.0); Mean Platelet Volume 9.8 fL (9.4-12.3); Monocytes Absolute Auto 0.4 X10*3/uL (0.1-1.2); Monocytes Percent Auto 5.6 % (2-11); Neutrophils Absolute Auto 4.6 x10*3/uL (2.0-8.3); Neutrophils Percent Auto 63.3 % (45-73); Platelet Count 337 X10*3/uL (160-400); Red Blood Count 4.98 X10*6/uL (4.20-5.50); Red Cell Distribution Width 19.3 % (11.0-16.0); White Blood Count 7.3 X10*3/uL (4.8-10.8)
[2022-08-16 16:29] LABS: Alanine Aminotransferase 7 U/L (0-31); Albumin Level 4.7 g/dL (3.5-5.0); Alkaline Phosphatase 108 U/L (39-117); Anion Gap 16 (12-20); Aspartate Amino Transferase 12 U/L (5-31); Bilirubin Total 1.4 mg/dL (0.0-1.0); Blood Urea Nitrogen 13 mg/dL (9-16); Carbon Dioxide 24 mmol/L (22-29); Chloride 104 mmol/L (96-108); Estimated Glomerular Filt Rate > 60; Glucose Random 101 mg/dL (60-115); Potassium 4.5 mmol/L (3.3-5.1); Sodium 139 mmol/L (135-145); Total Protein 7.6 g/dL (6.5-8.0)
[2022-08-16 16:58] LABS: Folate 4.3 ng/mL (> or = 4.0); TSH reflex Free T4 0.43 uIU/mL (0.32-4.0); Vitamin B12 920 pg/mL (200-900)
[2022-08-22 13:13] LABS: Vitamin D 25-OH, D2 <4 ng/mL; Vitamin D 25-OH, D3 35 ng/mL; Vitamin D 25-OH, Total 35 ng/mL (30-100)
== END 2022-08-16 14:39 | disposition home or self-care (01) ==
LOC: HO.LAB 14:38
PROVIDERS: PCP Internal Medicine; Visit Provider Nurse Practitioner Acute Care
DX: R25.1 Tremor, unspecified (principal)
CPT/HCPCS: 36415; 80053; 82306; 82607; 82746; 84443; 85025

== ENCOUNTER 2022-08-16 19:13 | Emergency (ER) | payer OTHER, SELFPAY ==
--- NOTE | 2022-08-16 | ECG_ITS ---
Test Reason : CHEST PAIN Blood Pressure : / mmHG Vent. Rate : 091 BPM Atrial Rate : 091 BPM P-R Int : 142 ms QRS Dur : 076 ms QT Int : 326 ms P-R-T Axes : 060 -12 064 degrees QTc Int : 400 ms Normal sinus rhythm Cannot rule out Anteroseptal infarct , age undetermined Abnormal ECG When compared with ECG of 24-MAR-2019 16:03, Minimal criteria for Anteroseptal infarct are now Present ST no longer depressed in Inferior leads Referred By: Generic ED Physician Electronically Signed By:CORTEZ PEREZ MD
[2022-08-16 19:48] VITALS: BP 138/94; PULSE 91; RESP 16; O2SAT 100; O2SAT 99; BMI 22.3
[2022-08-16 20:15] LABS: Basophils Percent Auto 0.3 % (0-2); Eosinophils Absolute Auto 0.1 X10*3/uL (0.0-0.4); Eosinophils Percent Auto 1.3 % (0-4); Hematocrit 35.6 % (37.0-47.0); Hemoglobin 12.2 g/dl (12.0-16.0); Imm Gran Abs Auto 0.02 X10*3/uL (0.00-0.03); Imm Gran Pct Auto 0.3 % (0.0-0.4); Lymphocytes Absolute Auto 2.2 X10*3/uL (1.2-4.9); MANUAL DIFF FLAG NO; Mean Corpuscular HGB Conc 34.3 g/dl (31.0-35.0); Mean Corpuscular Hemoglobin 26.2 pg (27.0-33.0); Mean Corpuscular Volume 76.4 fL (80.0-98.0); Mean Platelet Volume 9.3 fL (9.4-12.3); Monocytes Absolute Auto 0.5 X10*3/uL (0.1-1.2); Monocytes Percent Auto 6.5 % (2-11); Neutrophils Absolute Auto 4.7 x10*3/uL (2.0-8.3); Neutrophils Percent Auto 62.6 % (45-73); Platelet Count 316 X10*3/uL (160-400); Red Blood Count 4.66 X10*6/uL (4.20-5.50); Red Cell Distribution Width 18.6 % (11.0-16.0); White Blood Count 7.4 X10*3/uL (4.8-10.8)
[2022-08-16 20:36] LABS: Alanine Aminotransferase 7 U/L (0-31); Albumin Level 4.3 g/dL (3.5-5.0); Alkaline Phosphatase 97 U/L (39-117); Anion Gap 13 (12-20); Aspartate Amino Transferase 11 U/L (5-31); Bilirubin Total 1.1 mg/dL (0.0-1.0); Blood Urea Nitrogen 11 mg/dL (9-16); Calcium 9.4 mg/dL (8.4-10.2); Carbon Dioxide 23 mmol/L (22-29); Chloride 108 mmol/L (96-108); Creatinine Clr Calc Pharmacy 111.7; Estimated Glomerular Filt Rate > 60; Glucose Random 97 mg/dL (60-115); Potassium 4.1 mmol/L (3.3-5.1); Sodium 140 mmol/L (135-145); Total Protein 6.9 g/dL (6.5-8.0)
[2022-08-16 20:45] LABS: Troponin-I High Sensitivity < 3.5 ng/L (<3.5-17.0)
[2022-08-16 21:07] VITALS: BP 135/78; PULSE 94; RESP 16; TEMP 36.9; O2SAT 100
--- NOTE | 2022-08-16 21:32 | PC.NURSE ---
vss. pt resting on stretcher at this time. awaiting to be seen by ed provider
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
--- NOTE | 2022-08-16 22:14 | PC.NURSE ---
pt calm and cooperative. pt requested ice water at this time. pt provided with drink. pt resting on stretcher at this time
[2022-08-16 22:28] VITALS: BP 134/83; PULSE 86; RESP 16; TEMP 36.6; O2SAT 100
--- NOTE | 2022-08-16 22:35 | PC.NURSE ---
vss. skin pwd. iv removed at time of discharge. pt ambulatory at discharge. pt provide with discharge packet. pt verbalized understanding of discharge plan
== END 2022-08-16 22:37 | disposition home or self-care (01) ==
PROVIDERS: Emergency Provider Emergency Medicine; PCP Internal Medicine
DX: R07.89 Other chest pain (principal); D64.9 Anemia, unspecified; R25.1 Tremor, unspecified; F17.210 Nicotine dependence, cigarettes, uncomplicated; Z71.6 Tobacco abuse counseling; Z79.899 Other long term (current) drug therapy
CPT/HCPCS: 36415; 80053; 84484; 85025; 93005; 99283; 99284

== ENCOUNTER 2024-03-09 11:01 | Outpatient (AMB) | payer OTHER, SELFPAY ==
[2024-03-09 11:06] VITALS: BP 108/80; PULSE 95; O2SAT 97; BMI 22.3
--- NOTE | 2024-03-09 11:06 | MHC.PC.OV ---
Vital Signs 03/09/24 11:06 Height 5 ft 4 in Weight 130 lb BMI 22.3 BP 108/80 Blood Pressure Location Lt brachial Position Sitting Pulse 95 Pulse Source Pulse Oximeter Pulse Oximetry (%) 97 Oxygen Delivery Method Room Air Intake Visit Reasons: Tremors, legs gave out Intake Note: pt c/o worsening tremors and leg numbness X 3months Application Security Engineer Required: No Allergies hydroxyprogesterone [From MOISÉS] Allergy (Severe, Verified 03/09/24 11:07) ANAPHYLAXIS strawberry [STRAWBERRY] Allergy (Unknown, Verified 03/09/24 11:07) ANAPHYLAXIS SEAFOOD Allergy (Unknown, Uncoded 03/09/24 11:07) SHORTNESS OF BREATH seafood Allergy (Unknown, Uncoded 03/09/24 11:07) anaphylaxis shellfish Allergy (Unknown, Uncoded 03/09/24 11:07) anaphylaxis strawberries Allergy (Unknown, Uncoded 03/09/24 11:07) swelling of lips and tongue Medication List - Last Reconciled 03/09/24 by Cassie Vines PA-C hydroxyzine HCl 25 mg PO TID PRN metoclopramide HCl 5 mg PO Q6H nicotine 1 patch transdermal Q24H PNV,calcium 72-iron,carb-folic 29 mg iron- 1 mg ( Plus) 1 tab PO DAILY 30 days Tobacco use date assessed: 03/09/24 Dental Screening Dental Screen Date: 03/09/24 HPI Tremors, legs gave out HPI Details 33-year-old female with past medical history of asthma, generalized anxiety disorder, and tobacco abuse last seen by Dr. Lee coming in for acute problem. Patient states she has had a tremor in bilateral hands for the last 3 years. Tremor is primarily when she is resting and does improve if she focuses on stopping the tremor. Mentions more recently in the last 4 months she has been having bilateral leg numbness and tingling with mild tremors which has been worsening. Occasionally her legs will give out from underneath her and she will fall. [facility] Medical History Abdominal pain affecting Asthma Cervical cancer screening Dehydration during PTSD (post-traumatic stress disorder) Renal calculi Surgical History [place] teeth extracted Family History Father Anemia Paternal Grandmother Cancer AIDS Son Age: 5 Autism Son Age: 3y 6m Clubbed foot Social History Household Members: Children Both parents involved: No Housing: Apartment Are you a primary personal caregiver to a significant other at home: No Do you presently have visiting nurse or other home services: No 75 years or older and lives alone: No Alcohol intake: never Patient Tobacco Use Status: Current everyday Tobacco user Cigarettes Per Day: 2 Years Smoked: 5 yrs Second Hand Smoke Exposure: No Substance Use Type: Marijuana Trauma History: PTSD (19 year old in her arms) Current occupational status: unemployed 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 How often do you have a drink containing alcohol?: 2-4 times a month 2. How many drinks containing alcohol do you have on a typical day when you are drinking?: 1 or 2 3. How often do you have six or more drinks on one occasion?: Never Total Score: 2 IRVING-7 AMB Questionnaire IRVING-7 Date IRVING - 7 assessed: 03/09/24 Feeling nervous, anxious, or on edge: 0 = Not at all Not being able to stop or control worryin = Not at all Worrying too much about different things: 0 = Not at all Trouble relaxin = Not at all Being so restless that it is hard to sit still: 0 = Not at all Becoming easily annoyed or irritable: 0 = Not at all Feeling afraid as if something awful might happen: 0 = Not at all Total IRVING-7 score (0-4 normal; 5-9 mild; 10-14 moderate; 15-21 severe): 0 Source: Developed by Drs. Kike Hines, Allie Deng, Jitendra Panye and colleagues, with an educational angelica from [employer] IRVING-7 Assessment Billing IRVING-7 Assessment Tool: IRVING-7 Assessment 06939 Review of Systems Const Denies body aches, Denies chills, Denies fever(s) and Reports frequent falls Eyes Reports no additional complaints ENT Denies dizziness Card Denies chest pain, Denies syncope, Denies lightheadedness and Denies dyspnea Resp Denies cough and Denies dyspnea GI Reports no additional complaints Reports no additional complaints Musc Details: Bilateral lower extremity numbness and tingling Reports no additional complaints and Reports abnormal gait Skin/Breast Reports system reviewed and no additional complaints, except as documented Neuro Details: Tremor of bilateral hands worse at rest Reports abnormal gait, Denies dizziness, Denies syncope and Reports frequent falls Psych Reports no additional complaints Physical exam (Primary Care) Vital Signs: Last Vital Signs Pulse 95 03/09/24 11:06 BP 108/80 03/09/24 11:06 Pulse Ox 97 03/09/24 11:06 Oxygen Delivery Method Room Air 03/09/24 11:06 BMI result Body Mass Index 22.3 Tobacco/Smoking Status: Tobacco use Status Tobacco use date assessed 03/09/24 03/09/24 11:07 Patient Tobacco Use Status Current everyday Tobacco 03/09/24 11:07 Thrive Assessment: Date of Thrive Assessment Date Thrive assessed 08/16/22 03/09/24 11:07 Const General: cooperative, healthy appearing, comfortable and no acute distress Orientation/consciousness: patient oriented x3 HENMT Head: Yes normocephalic Ears: hearing grossly normal bilaterally General nose exam: Normal external nose present Eyes General: appearance normal, both eyes and all related structures Conjunctivae: conjunctivae normal Neck Neck: Yes full ROM and Yes no lymphadenopathy Resp Effort & Inspection: normal respiratory effort Auscultation: clear to auscultation bilaterally, no crackles, no rales, no rhonchi and no wheezes Cardio Rate: regular rate Rhythm: regular rhythm Skin General skin exam: no rashes or lesions noted Neuro Other: Resting tremor of both hands improves with focus. Bilateral knee weakness with extension and flexion. General: patient oriented x3 Gait exam (Neuro): Normal gait present Extrem Other: Lower extremity pulses and sensation intact bilaterally. Upper extremity strength, sensation, and pulses intact bilaterally General: Yes normal to inspection, Yes full ROM and No edema Psych Affect: normal affect Attitude: cooperative Insight: Good insight present (Psych) Judgement: Good judgement present (Psych) Assessment and Plan Assessment & Plan (1) Tremor of both hands: Code(s): R25.1 - Tremor, unspecified Plan: Ordered for blood work to rule out underlying organic cause. We can consider head imaging if lab work is negative. Follow up in 2 weeks for review of blood work and discussion of next steps. (2) Lower extremity numbness: Code(s): R20.0 - Anesthesia of skin Plan: Patient has bilateral lower extremity weakness, numbness and tingling. Will order for lower extremity EMG for further evaluation as well as routine blood work. Follow up in 2 weeks. Plan This note was constructed using voice recognition software. While every effort has been made to ensure accuracy and fitter placer, still areas may have been included sometimes these areas may affect the content or meeting of the given symptoms. Total time spent caring for the patient today was 30 minutes. This includes time spent before the visit reviewing the chart, time spent during the visit, and time spent after the visit and documentation. Orders: Orders Complete Blood Count Auto Diff Today Z00.00 - Encounter for general adult medical examination without abnormal findings Comprehensive Met. Panel Today Z00.00 - Encounter for general adult medical examination without abnormal findings Lipid Panel Today Z00.00 - Encounter for general adult medical examination without abnormal findings Free T4 (Free Thyroxine) Today Z00.00 - Encounter for general adult medical examination without abnormal findings Vitamin B12 and Folate Today Z00.00 - Encounter for general adult medical examination without abnormal findings Vitamin D 25-OH (D2 and D3) Today Z00.00 - Encounter for general adult medical examination without abnormal findings Magnesium Today R25.1 - Tremor, unspecified Prolactin Today R25.1 - Tremor, unspecified Lutenizing Hormone Today R25.1 - Tremor, unspecified NE electromyogram (EMG) Today R20.0 - Anesthesia of skin Hemoglobin A1c Today R25.1 - Tremor, unspecified TSH reflex Free T4 Today Z00.00 - Encounter for general adult medical examination without abnormal findings DANIA Reflex Titer and Pattern Today R25.1 - Tremor, unspecified Coding Level of Care Code Est Pt Level 4 (80029) Diagnoses Tremor of both hands R25.1 Lower extremity numbness R20.0 Additional Codes IRVING-7 Assessment Billing - IRVING-7 Assessment Tool: IRVING-7 Assessment 93094 ([id number])
== END 2024-03-09 11:55 | disposition home or self-care (01) ==
PROVIDERS: PCP Internal Medicine
DX: R25.1 Tremor, unspecified (principal); R20.0 Anesthesia of skin
CPT/HCPCS: 99214

== ENCOUNTER 2024-03-10 10:20 | Outpatient (REF) | payer OTHER, SELFPAY ==
[2024-03-10 10:41] LABS: MANUAL DIFF FLAG NO
[2024-03-10 10:58] LABS: Basophils Percent Auto 0.4 % (0-2); Eosinophils Absolute Auto 0.2 X10*3/uL (0.0-0.4); Eosinophils Percent Auto 2.9 % (0-4); Hematocrit 40.4 % (37.0-47.0); Hemoglobin 13.7 g/dl (12.0-16.0); Imm Gran Abs Auto 0.02 X10*3/uL (0.00-0.03); Imm Gran Pct Auto 0.3 % (0.0-0.4); Lymphocytes Absolute Auto 2.2 X10*3/uL (1.2-4.9); Lymphocytes Percent Auto 30.2 % (20-40); Mean Corpuscular HGB Conc 33.9 g/dl (31.0-35.0); Mean Corpuscular Hemoglobin 28.4 pg (27.0-33.0); Mean Corpuscular Volume 83.6 fL (80.0-98.0); Monocytes Absolute Auto 0.3 X10*3/uL (0.1-1.2); Monocytes Percent Auto 4.7 % (2-11); Neutrophils Absolute Auto 4.4 x10*3/uL (2.0-8.3); Neutrophils Percent Auto 61.5 % (45-73); Platelet Count 353 X10*3/uL (160-400); Red Blood Count 4.83 X10*6/uL (4.20-5.50); Red Cell Distribution Width 14.6 % (11.0-16.0); White Blood Count 7.2 X10*3/uL (4.8-10.8)
[2024-03-10 11:05] LABS: Estimated Average Glucose 103 mg/dL; Hemoglobin A1c % 5.2 % (<6.0)
[2024-03-10 11:58] LABS: Alanine Aminotransferase 13 U/L (0-31); Albumin Level 4.4 g/dL (3.5-5.0); Alkaline Phosphatase 78 U/L (39-117); Anion Gap 11 (12-20); Aspartate Amino Transferase 15 U/L (5-31); Bilirubin Total 0.5 mg/dL (0.0-1.0); Blood Urea Nitrogen 11 mg/dL (9-16); Calcium 9.9 mg/dL (8.4-10.2); Carbon Dioxide 24 mmol/L (22-29); Chloride 108 mmol/L (96-108); Cholesterol 156 mg/dL (<200); Estimated Glomerular Filt Rate > 60; Glucose Random 97 mg/dL (60-115); HDL Cholesterol 49 mg/dL (>40); LDL Cholesterol Calculated 83 mg/dL (<100); Magnesium 2.2 mg/dL (1.6-2.6); Potassium 4.2 mmol/L (3.3-5.1); Sodium 139 mmol/L (135-145); Total Protein 7.6 g/dL (6.5-8.0); Triglycerides 122 mg/dL (<150)
[2024-03-10 12:17] LABS: Free T4 (Free Thyroxine) 0.86 ng/dL (0.71-1.85); TSH reflex Free T4 0.36 uIU/mL (0.32-4.0)
[2024-03-10 12:23] LABS: Folate 10.7 ng/mL (> or = 4.0); Vitamin B12 814 pg/mL (200-900)
[2024-03-11 18:04] LABS: Lutenizing Hormone 29.6 mIU/mL; Prolactin 12.9 ng/mL
[2024-03-14 16:09] LABS: Vitamin D 25-OH, D2 <4 ng/mL; Vitamin D 25-OH, D3 30 ng/mL; Vitamin D 25-OH, Total 30 ng/mL (30-100)
[2024-03-17 10:38] LABS: Anti Nuclear Antibody Screen POSITIVE (NEGATIVE); Anti Nuclear Antibody Titer 1:40 titer
== END 2024-03-10 10:21 | disposition home or self-care (01) ==
LOC: HO.LAB 10:20
PROVIDERS: PCP Internal Medicine
DX: Z00.00 Encounter for general adult medical examination without abnormal findings (principal); R25.1 Tremor, unspecified
CPT/HCPCS: 36415; 80053; 80061; 82306; 82607; 82746; 83002; 83036; 83735; 84146; 84439; 84443; 85025; 86038; 86039

== ENCOUNTER 2024-03-23 10:54 | Outpatient (REF) | payer OTHER, SELFPAY ==
[2024-03-23 12:37] LABS: C Reactive Protein 0.16 mg/dL (< or = 0.50)
[2024-03-23 12:41] LABS: Erythrocyte Sedimentation Rate 2 MM/HR (0-20)
[2024-03-23 12:55] LABS: Rheumatoid Factor < 13.0 IU/mL (<15.0)
== END 2024-03-23 10:55 | disposition home or self-care (01) ==
LOC: HO.LAB 10:54
PROVIDERS: PCP Internal Medicine
DX: R51.9 Headache, unspecified (principal); R20.0 Anesthesia of skin; R25.1 Tremor, unspecified; M25.50 Pain in unspecified joint; J45.909 Unspecified asthma, uncomplicated; F17.210 Nicotine dependence, cigarettes, uncomplicated
CPT/HCPCS: 36415; 85652; 86140; 86431; 99212

== ENCOUNTER 2024-03-23 10:54 | Outpatient (AMB) | payer OTHER, SELFPAY ==
--- NOTE | 2024-03-23 10:59 | A.OFFPC_ITS ---
Vital Signs 03/23/24 11:01 Height 5 ft 4 in Weight 132 lb BMI 22.7 BP 120/74 Blood Pressure Location Lt brachial Position Sitting Pulse 91 Pulse Source Pulse Oximeter Pulse Oximetry (%) 99 Oxygen Delivery Method Room Air Intake Visit Reasons: f/u blood work Intake Note: Patient is here to follow up on lab results. Oracle Database Analyst Required: No Certified Indoor Environmentalist: Present Accompanied by: Spouse Allergies hydroxyprogesterone [From MOISÉS] Allergy (Severe, Verified 03/23/24 11:01) ANAPHYLAXIS strawberry [STRAWBERRY] Allergy (Unknown, Verified 03/23/24 11:01) ANAPHYLAXIS SEAFOOD Allergy (Unknown, Uncoded 03/23/24 11:01) SHORTNESS OF BREATH seafood Allergy (Unknown, Uncoded 03/23/24 11:01) anaphylaxis shellfish Allergy (Unknown, Uncoded 03/23/24 11:01) anaphylaxis strawberries Allergy (Unknown, Uncoded 03/23/24 11:01) swelling of lips and tongue Medication List - Last Reconciled 03/23/24 by Cassie Vines PA-C hydroxyzine HCl 25 mg PO TID PRN metoclopramide HCl 5 mg PO Q6H nicotine 1 patch transdermal Q24H PNV,calcium 72-iron,carb-folic 29 mg iron- 1 mg ( Plus) 1 tab PO DAILY 30 days Tobacco use date assessed: 03/23/24 Dental Screening Dental Screen Date: 03/09/24 HPI f/u blood work HPI Details 33-year-old female with past medical his tory of asthma, generalized anxiety disorder, and tobacco abuse last seen March 2024 coming in for lab follow up. Scheduled to have bilateral lower extremity EMG 03/26/2024. Patient states she has been feeling generally well and symptoms have not changed since her last appointment. She does mentioned she is having increased frequency headaches which feel like a deep pressure in the head as well as heaviness. She has these headaches almost daily and does not identify any triggers or relieving factors. [facility] Medical History (Updated 03/23/24 @ 12:24 by Cassie Vines PA-C) Cervical cancer screening Dehydration during Abdominal pain affecting PTSD (post-traumatic stress disorder) Renal calculi Asthma Surgical History (Updated 03/23/24 @ 11:05 by JAGDEEP Damon) History of salpingostomy History of appendectomy [place] teeth extracted Family History (Updated 03/23/24 @ 10:59 by JAGDEEP Damon) Father Anemia Paternal Grandmother Cancer AIDS Son Age: 6 Autism Son Age: 5 Clubbed foot Other Mental health disorder Social History Household Members: Children Both parents involved: No Housing: Apartment Are you a primary child day care teacher to a significant other at home: No Do you presently have visiting nurse or other home services: No 75 years or older and lives alone: No Alcohol intake: never Patient Tobacco Use Status: Current everyday Tobacco user Tobacco use type: Cigarette Cigarette Packs Per Day: 0.25 Cigarettes Per Day: 2 Years Smoked: 5 yrs e-Cigarette/Vaping Use: Never Used Second Hand Smoke Exposure: Yes Substance Use Type: Marijuana Trauma History: PTSD (19 year old in her arms) service: No Current occupational status: unemployed 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 1. Little interest or pleasure in doing things: not at all 2. Feeling down, depressed, or hopeless: not at all 3. Trouble falling or staying asleep, or sleeping too much: not at all 4. Feeling tired or having little energy: not at all 5. Poor appetite or overeating: not at all 6. Feeling bad about yourself - or that you are a failure or have let yourself or your family down: not at all 7. Trouble concentrating on things, such as reading the newspaper or watching television: not at all 8. Moving or speaking so slowly that other people could have noticed. Or the opposite - being so fidgety or restless that you have been moving around a lot more than usual: not at all 9. Thoughts that you would be better off or of hurting yourself in some way: not at all Total score: 0 Depression Screening Interpretation: Negative Depression Screening Done: Yes Source: Developed by Drs. Kike Hines, Allie Deng, Jitendra Payne and colleagues, with an educational angelica from [employer]. Thrive Questionnaire Date Thrive assessed: 03/23/24 I am a: Patient What is your living situation today?: I have a steady place to live Within the past 12 months, did the food you bought not last and you didn't have the money to get more?: I choose not to answer this question Within the past 12 months, did you worry whether your food would run out before you got money to buy more?: I choose not to answer this question Do you have trouble paying for medicines?: I choose not to answer this question Do you have trouble getting transportation to medical appointments?: I choose not to answer this question Do you have trouble paying your heating and electricity bill?: I choose not to answer this question Do you have trouble taking care of your child, family member or friend?: I choose not to answer this question Do you have trouble with day-to-day activities such as bathing, preparing meals, shopping, managing finances, etc.?: I choose not to answer this question Are you currently unemployed and looking for a job?: I choose not to answer this question Are you interested in more education?: I choose not to answer this question Currently or been in a relationship where the following occur: No concerns reported THRIVE Score: 0 AUDIT C Alcohol Use Questionnaire (AUDIT-C) 1. How often do you have a drink containing alcohol?: 2-4 times a month 2. How many drinks containing alcohol do you have on a typical day when you are drinking?: 1 or 2 Total Score: 2 IRVING-7 AMB Questionnaire IRVING-7 Date IRVING - 7 assessed: 03/09/24 Source: Developed by Drs. Kike Hines, Allie Deng, Jitendra Payne and colleagues, with an educational angelica from [employer]. Review of Systems Const Denies chills, Denies fever(s) and Reports headache(s) Eyes Reports no additional complaints and Denies change in vision ENT Reports Normal hearing present, Denies dizziness and Reports headache(s) Card Denies chest pain, Denies syncope and Denies dyspnea Resp Denies dyspnea GI Denies abdominal pain, Reports nausea (With headaches) and Denies vomiting Reports no additional complaints Musc Reports no additional complaints and Reports abnormal gait Skin/Breast Reports system reviewed and no additional complaints, except as documented Neuro Details: Patient will have occasional weakness in the legs and feel like they give out. Bilateral hand tremor Reports Normal hearing present, Reports abnormal gait, Denies dizziness, Denies syncope and Reports headache(s) Psych Reports no additional complaints Physical exam (Primary Care) Tobacco/Smoking Status: Tobacco use Status Tobacco use date assessed 03/09/24 03/09/24 11:07 Patient Tobacco Use Status Current everyday Tobacco 03/09/24 11:07 Depression Screening Interpretation: Negative Thrive Assessment: Date of Thrive Assessment Date Thrive assessed 08/16/22 03/09/24 11:07 Currently or been in a relationship where the following occur: No concerns reported Const General: cooperative, healthy appearing, comfortable and no acute distress Orientation/consciousness: patient oriented x3 HENMT Head: Yes normocephalic Ears: hearing grossly normal bilaterally General nose exam: Normal external nose present Eyes General: appearance normal, both eyes and all related structures Conjunctivae: conjunctivae normal Pupils: Equal, round and reactive pupils present EOM: No Nystagmus present Neck Neck: Yes full ROM and Yes no lymphadenopathy Resp Effort & Inspection: normal respiratory effort Auscultation: clear to auscultation bilaterally, no crackles, no rales, no rhonchi and no wheezes Cardio Rate: regular rate Rhythm: regular rhythm Skin General skin exam: no rashes or lesions noted Neuro Other: Upper extremity strength, sensation, pulses intact bilaterally General: patient oriented x3 Cranial nerves: Yes Equal, round and reactive pupils present, Yes Bilaterally intact EOM present, Yes Nystagmus not present, Yes Normal facial strength present, Yes Midline tongue present, Yes Normal hearing present, Yes Ability to bilaterally rotate head present, Yes Ability to bilaterally elevate shoulders present and No Nystagmus present Cognition (Neuro): normal cognition Gait exam (Neuro): Normal gait present Extrem General: Yes normal to inspection, Yes full ROM and No edema Psych Affect: normal affect Attitude: cooperative Insight: Good insight present (Psych) Judgement: Good judgement present (Psych) Assessment and Plan Assessment & Plan (1) Lower extremity numbness: Code(s): R20.0 - Anesthesia of skin Plan: Patient has EMG scheduled for this Friday for this concern. (2) Tremor of both hands: Code(s): R25.1 - Tremor, unspecified Plan: Blood work came back mostly benign however did have positive DANIA we will order for inflammatory markers as well as rheumatoid factor to rule out underlying cause. If these tests are negative can consider referral to Neurology. (3) Headache: Code(s): R51.9 - Headache, unspecified Plan: Patient does have new onset of headaches which she states happen almost daily. She does have a history of headaches in the past however nothing consistent. We will await blood work to determine if patient needs referral to Neurology or rheumatology. Advised patient to use Tylenol and ibuprofen as needed for headache. Plan This note was constructed using voice recognition software. While every effort has been made to ensure accuracy and screen vent binder, still areas may have been included sometimes these areas may affect the content or meeting of the given symptoms. Total time spent caring for the patient today was 20 minutes. This includes time spent before the visit reviewing the chart, time spent during the visit, and time spent after the visit and documentation. Orders: Orders Rheumatoid Factor Today R25.1 - Tremor, unspecified Coding Level of Care Code Est Pt Level 3 (76330) Diagnoses Lower extremity numbness R20.0 Tremor of both hands R25.1 Headache R51.9
[2024-03-23 11:01] VITALS: BP 120/74; PULSE 91; O2SAT 99; BMI 22.7
== END 2024-03-23 11:24 | disposition home or self-care (01) ==
PROVIDERS: PCP Internal Medicine
DX: R20.0 Anesthesia of skin (principal); R25.1 Tremor, unspecified; R51.9 Headache, unspecified

== ENCOUNTER 2024-04-15 10:27 | Outpatient (AMB) | payer OTHER, SELFPAY ==
[2024-04-15 10:29] VITALS: BP 104/62; PULSE 118; O2SAT 97; BMI 22.5
--- NOTE | 2024-04-15 10:29 | MHC.PC.OV ---
Vital Signs 04/15/24 10:29 Height 5 ft 4 in Weight 131 lb BMI 22.5 BP 104/62 Blood Pressure Location Lt brachial Position Sitting Pulse 118 H Pulse Source Pulse Oximeter Pulse Oximetry (%) 97 Oxygen Delivery Method Room Air Intake Visit Reasons: f/u lab work Concrete Spreader Required: No Allergies hydroxyprogesterone [From MOISÉS] Allergy (Severe, Verified 04/15/24 10:32) ANAPHYLAXIS strawberry [STRAWBERRY] Allergy (Unknown, Verified 04/15/24 10:32) ANAPHYLAXIS SEAFOOD Allergy (Unknown, Uncoded 04/15/24 10:32) SHORTNESS OF BREATH seafood Allergy (Unknown, Uncoded 04/15/24 10:32) anaphylaxis shellfish Allergy (Unknown, Uncoded 04/15/24 10:32) anaphylaxis strawberries Allergy (Unknown, Uncoded 04/15/24 10:32) swelling of lips and tongue Medication List - Last Reconciled 04/15/24 by Cassie Vines PA-C No Known Home Meds Tobacco use date assessed: 03/23/24 Dental Screening Dental Screen Date: 03/09/24 HPI f/u lab work HPI Details 33-year-old female with past medical history of asthma, generalized anxiety disorder, and tobacco abuse last seen March 2024 coming in for follow up. Patient had EMG scheduled but not completed rescheduled to later today. Patient states her EMG is scheduled for later today. Within the last 2 weeks she feels her knees have been swelling and are more tender. She feels relief with her knees bent and has more pain with the knees straight. FORMERLY [facility], [facility] Medical History (Updated 04/15/24 @ 11:02 by Cassie Vines PA-C) Cervical cancer screening Dehydration during Abdominal pain affecting PTSD (post-traumatic stress disorder) Renal calculi Asthma Surgical History (Updated 03/23/24 @ 11:05 by JAGDEEP Damon) History of salpingostomy History of appendectomy [place] teeth extracted Family History (Updated 03/23/24 @ 10:59 by JAGDEEP Damon) Father Anemia Paternal Grandmother Cancer AIDS Son Age: 6 Autism Son Age: 5 Clubbed foot Other Mental health disorder Social History Household Members: Children Both parents involved: No Housing: Apartment Are you a primary lawn care worker to a significant other at home: No Do you presently have visiting nurse or other home services: No 75 years or older and lives alone: No Alcohol intake: never Patient Tobacco Use Status: Current everyday Tobacco user Tobacco use type: Cigarette Cigarette Packs Per Day: 0.25 Cigarettes Per Day: 2 Years Smoked: 5 yrs e-Cigarette/Vaping Use: Never Used Second Hand Smoke Exposure: Yes Substance Use Type: Marijuana Trauma History: PTSD (19 year old in her arms) service: No Current occupational status: unemployed 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 How often do you have a drink containing alcohol?: 2-4 times a month 2. How many drinks containing alcohol do you have on a typical day when you are drinking?: 1 or 2 3. How often do you have six or more drinks on one occasion?: Never Total Score: 2 IRVING-7 AMB Questionnaire IRVING-7 Date IRVING - 7 assessed: 03/09/24 Source: Developed by Drs. Kike Hines, Allie Deng, Jitendra Payne and colleagues, with an educational angelica from [employer]. Review of Systems Const Reports fatigue, Denies fever(s), Denies headache(s) and Reports lethargy Eyes Reports no additional complaints ENT Denies dizziness and Denies headache(s) Card Denies chest pain, Denies lightheadedness and Denies dyspnea Resp Denies dyspnea GI Denies constipation, Denies diarrhea, Denies nausea and Denies vomiting Reports no additional complaints Musc Details: Bilateral knee pain Reports abnormal gait Skin/Breast Reports system reviewed and no additional complaints, except as documented Neuro Reports abnormal gait, Denies dizziness, Denies headache(s) and Reports tremor(s) Psych Reports no additional complaints Endo Reports fatigue Physical exam (Primary Care) Vital Signs: Last Vital Signs Pulse 118 H 04/15/24 10:29 BP 104/62 04/15/24 10:29 Pulse Ox 97 04/15/24 10:29 Oxygen Delivery Method Room Air 04/15/24 10:29 BMI result Body Mass Index 22.5 Tobacco/Smoking Status: Tobacco use Status Tobacco use date assessed 03/23/24 04/15/24 10:30 Patient Tobacco Use Status Current everyday Tobacco 04/15/24 10:30 Tobacco use type Cigarette 04/15/24 10:30 e-Cigarette/Vaping Use Never Used 04/15/24 10:30 Thrive Assessment: Date of Thrive Assessment Date Thrive assessed 03/23/24 04/15/24 10:30 Const General: cooperative, healthy appearing, comfortable and no acute distress Orientation/consciousness: patient oriented x3 HENMT Head: Yes normocephalic Ears: hearing grossly normal bilaterally General nose exam: Normal external nose present Eyes General: appearance normal, both eyes and all related structures Conjunctivae: conjunctivae normal Neck Neck: Yes full ROM and Yes no lymphadenopathy Resp Effort & Inspection: normal respiratory effort Auscultation: clear to auscultation bilaterally, no crackles, no rales, no rhonchi and no wheezes Cardio Rate: regular rate Rhythm: regular rhythm Skin General skin exam: no rashes or lesions noted Neuro General: patient oriented x3 Gait exam (Neuro): Normal gait present Extrem Other: Pain to palpation of medial and lateral joint lines in bilateral knees and pain with flexion of the knee General: Yes normal to inspection, Yes full ROM and No edema Psych Affect: normal affect Attitude: cooperative Insight: Good insight present (Psych) Judgement: Good judgement present (Psych) Coding Level of Care Code Est Pt Level 3 (42201) Diagnoses DANIA positive R76.8 Lower extremity numbness R20.0 Bilateral knee pain M25.561; M25.562 Tremor of both hands R25.1 Assessment & Plan Assessment & Plan (1) DANIA positive: Code(s): R76.8 - Other specified abnormal immunological findings in serum Category: Medical Plan: All other inflammatory markers and lab work within normal limits and does not require additional workup. Referral placed for Rheumatology for further investigation regarding DANIA positive paired with general weakness and tremors. (2) Lower extremity numbness: Code(s): R20.0 - Anesthesia of skin Category: Medical Plan: EMG to be completed today. Depending on the results of this test we will guide further treatment. (3) Bilateral knee pain: Code(s): M25.561 - Pain in right knee; M25.562 - Pain in left knee Category: Medical Plan: Patient complaining of bilateral knee pain and tenderness on exam. Declines further workup at this time and we will continue to monitor her symptoms. (4) Tremor of both hands: Code(s): R25.1 - Tremor, unspecified Category: Medical Plan: Referral will be placed to Neurology for further workup as she is now here for treatment right now but identifying an underlying cause. Continue to monitor your symptoms and if symptoms worsen follow up with our office. Plan This note was constructed using voice recognition software. While every effort has been made to ensure accuracy and hydro plant technician, still areas may have been included sometimes these areas may affect the content or meeting of the given symptoms. Total time spent caring for the patient today was 30 minutes. This includes time spent before the visit reviewing the chart, time spent during the visit, and time spent after the visit and documentation. Orders: Referrals Rheumatology Referral R76.8 - Other specified abnormal immunological findings in serum Neurology Referral R20.0 - Anesthesia of skin, R25.1 - Tremor, unspecified
== END 2024-04-15 10:54 | disposition home or self-care (01) ==
PROVIDERS: PCP Internal Medicine
DX: R76.8 Other specified abnormal immunological findings in serum (principal); R20.0 Anesthesia of skin; M25.561 Pain in right knee; M25.562 Pain in left knee; R25.1 Tremor, unspecified

== ENCOUNTER 2024-04-15 13:26 | Outpatient (REF) | payer OTHER, SELFPAY ==
--- NOTE | 2024-04-15 13:30 | EMG_ITS ---
Chief complaint: While , 6 months ago, started having bilateral feet numbness. 2-3 weeks ago, started having pain from knees down to almendarez. Chronic hand tremor, past 3 years. Reason for referral: Evaluate for neuropathy Referred by: Cassie Vines Procedure done: Bilateral lower extremity NCS/EMG Precautions and/or limitations: None The limb temperature was monitored continuously and remained between 32-36 degrees C during the performance of the NCS. Nerve Conduction Studies Anti Sensory Summary Table ?Stim Site NR Onset (ms) Norm Onset (ms) Peak (ms) Norm Peak (ms) O-P Amp (?V) Norm O-P Amp Site1 Site2 Delta-0 (ms) Dist (cm) Will (m/s) Norm Will (m/s) Left Sural Anti Sensory (Lat Mall) Calf ? 2.1 3.6 <4.0 6.3 >5.0 Calf Lat Mall 2.1 14.0 67 Right Sural Anti Sensory (Lat Mall) Calf ? 3.3 3.9 <4.0 5.1 >5.0 Calf Lat Mall 3.3 14.0 42 Motor Summary Table ?Stim Site NR Onset (ms) Norm Onset (ms) O-P Amp (mV) Norm O-P Amp iAmp (mV) Amp (1st) (%) Site1 Site2 Delta-0 (ms) Dist (cm) Will (m/s) Norm Will (m/s) Left Peroneal Motor (Ext Dig Brev) Ankle ? 4.4 <4.0 3.5 >2.5 4.5 100.0 Ankle Ext Dig Brev 4.4 0.0 B Fib ? 10.4 3.6 4.6 102.9 B Fib Ankle 6.0 30.0 50 >40 Poplt ? 11.2 3.5 4.5 100.0 Poplt B Fib 0.8 5.0 63 >40 Right Peroneal Motor (Ext Dig Brev) Ankle ? 5.5 <4.0 3.2 >2.5 4.1 100.0 Ankle Ext Dig Brev 5.5 0.0 B Fib ? 11.3 3.4 4.1 106.3 B Fib Ankle 5.8 30.0 52 >40 Poplt ? 12.6 3.3 4.0 103.1 Poplt B Fib 1.3 4.5 35 >40 Left Tibial Motor (Abd Dover Brev) Ankle ? 3.8 <5 14.0 >2.5 21.1 100.0 Ankle Abd [place] Brev 3.8 0.0 Knee ? 11.2 9.8 14.1 70.0 Knee Ankle 7.4 34.0 46 >40 Right Tibial Motor (Abd [place] Brev) Ankle ? 4.1 <5 15.4 >2.5 22.0 100.0 Ankle Abd [place] Brev 4.1 0.0 Knee ? 11.9 10.4 14.8 67.5 Knee Ankle 7.8 35.5 46 >40 EMG ?Side Muscle Nerve Root Ins Act Fibs Psw Amp Dur Poly Recrt Int Pat Comment Right Peroneus Long Sup Br Peron L5-S1 Nml Nml Nml Nml Nml 0 Nml Complete Right AbdHallucis MedPlantar S1-2 Nml Nml Nml Nml Nml 0 Nml Complete Right AntTibialis Dp Br Peron L4-5 Nml Nml Nml Nml Nml 0 Nml Complete Right MedGastroc Tibial S1-2 Nml Nml Nml Nml Nml 0 Nml Complete Right VastusMed Femoral L2-4 Nml Nml Nml Nml Nml 0 Nml Complete Left AbdHallucis MedPlantar S1-2 Nml Nml Nml Nml Nml 0 Nml Complete Left AntTibialis Dp Br Peron L4-5 Nml Nml Nml Nml Nml 0 Nml Complete Left MedGastroc Tibial S1-2 Nml Nml Nml Nml Nml 0 Nml Complete Left VastusMed Femoral L2-4 Nml Nml Nml Nml Nml 0 Nml Complete Left Peroneus Long Sup Br Peron L5-S1 Nml Nml Nml Nml Nml 0 Nml Complete Paraspinal EMG ?Side Muscle Nerve Root Ins Act Fibs Psw Comment Right Lumbar Upper Rami Nml Nml Nml Right Lumbar Mid Rami Nml Nml Nml Right Lumbar Lower Rami Nml Nml Nml Left Lumbar Upper Rami Nml Nml Nml Left Lumbar Mid Rami Nml Nml Nml Left Lumbar Lower Rami Nml Nml Nml FINDINGS: Right peroneal nerve showed prolonged distal latency, normal amplitude and slow conduction velocity across fibular neck. Left peroneal nerve showed prolonged distal latency, normal amplitude and normal conduction velocity. All other nerves tested were within normal. Concentric needle EMG was performed in selected muscles of the bilateral lower extremity and lumbar paraspinals. Study did not reveal signs of electric abnormalities as shown in the table above. IMPRESSION: 1. This is an abnormal study. 2. 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 3. There is no electrodiagnostic evidence for tibial neuropathy. lumbosacral plexopathy, lumbar radiculopathy, or peripheral neuropathy. CLINICAL COMMENT: Peroneal neuropathy is more localizable on the right side and patient admits that symptoms are worse on right side. Thank you for your kind referral. Evelin Gibson MD, [place] Board Certified, [place] Board of Physical Medicine and Rehabilitation (ABPMR) Board Certified, [place] Board of Electrodiagnostic Medicine (ABEM) CODIN [id number] x 2 MTDD
== END 2024-04-15 13:27 | disposition home or self-care (01) ==
LOC: HO.NEURO 13:26
PROVIDERS: PCP Internal Medicine
DX: R20.0 Anesthesia of skin (principal); R76.8 Other specified abnormal immunological findings in serum; R25.1 Tremor, unspecified; M25.561 Pain in right knee; M25.562 Pain in left knee
CPT/HCPCS: 95886; 95909; 99212

== ENCOUNTER → 2024-04-15 13:30 | Outpatient (BNV) | payer OTHER, SELFPAY | PROVIDERS: PCP Internal Medicine; Visit Provider Physical Medicine & Rehabilitation | DX: R20.0 Anesthesia of skin (principal); G57.83 Other specified mononeuropathies of bilateral lower limbs | CPT/HCPCS: 95886; 95909 ==

== ENCOUNTER 2024-08-05 12:41 | Emergency (ER) | payer OTHER, SELFPAY ==
--- NOTE | 2024-08-05 12:52 | ED_ITS ---
HPI - General Adult General Chief complaint: General Medical Stated complaint: Lock jaw, bilateral leg pain Time Seen by Provider: 08/05/24 18:36 Source: patient Mode of arrival: ambulatory Limitations: no limitations History of Present Illness ED Provider: Dr. Elinor Burr HPI narrative: Patient comes to the emergency room complaining of chronic neuropathic pain. Patient states that she has pain all over, numbness tingling in her whole body. Patient states that sometimes she feels that her jaw locks, patient complaining of tremors oral over her body especially in her hands. According to the patient, she has been evaluated multiple times at [facility], has had MRIs done, electromyograms. Patient states that a few months ago she had an DANIA test done, was positive but there were no other inflammatory markers therefore she did not have any further workup. Patient states that she is looking mostly for a prescription for gabapentin. Patient states that in the past it has helped her with her symptoms. Patient has follow-up appointments with her specialist coming up. Related Data Previous Rx's ?Medication ?Instructions ?Recorded Grab bar #1 ea 07/29/24 Shower Chair #1 ea 07/29/24 walker #1 ea 07/29/24 gabapentin 100 mg capsule 100 mg PO TID PRN Neuropathic pain 08/05/24 #30 caps Allergies Allergy/AdvReac Type Severity Reaction Status Date / Time hydroxyprogesterone Allergy Severe ANAPHYLAXIS Verified 08/05/24 12:55 [From MOISÉS] strawberry [STRAWBERRY] Allergy Unknown ANAPHYLAXIS Verified 08/05/24 12:55 SEAFOOD Allergy Unknown SHORTNESS Uncoded 04/15/24 10:32 OF BREATH seafood Allergy Unknown anaphylaxis Uncoded 04/15/24 10:32 shellfish Allergy Unknown anaphylaxis Uncoded 04/15/24 10:32 strawberries Allergy Unknown swelling Uncoded 04/15/24 10:32 of lips and tongue Review of Systems 2 Review of Systems: Constitutional : No Weight loss, No Fever, No Chills, No Night Sweats, No Fatigue, No Malaise ENT/Mouth : No Hearing loss, No Ear Pain, No Nasal Congestion, No Sinus Pain, No Hoarseness, No sore throat, No Rhinorrhea, No Swallowing Difficulty Eyes: No Eye Pain, No Swelling, No Redness, No Foreign Body, No Discharge, No Vision Changes Cardiovascular : No Chest Pain, No SOB, No Dyspnea on Exertion, No Orthopnea, No Edema, No Palpitations Respiratory : No Cough, No Sputum, No Wheezing, No Smoke Exposure, No Dyspnea Gastrointestinal : No Nausea, No Vomiting, No Diarrhea, No Constipation, No abdominal Pain, No Hematochezia, No Melena Genitourinary : no irregular bleeding, No Dysuria, No Urinary Frequency, No Hematuria, No Urinary Incontinence, No Urgency, No Flank Pain, No Urinary Flow Changes, No Hesitancy Musculoskeletal : No joint pain, No Myalgias, No Joint Swelling Skin : No Skin Lesions, No rash Neuro : No Weakness, No Numbness, No Paresthesias, No Loss of Consciousness, No Dizziness, No Headache, complaining of chronic neuropathic pain all over her body Psych : No Anxiety/Panic, No Depression, No SI/HI/AH/VH, No Social Issues, Heme/Lymph: No Bruising, No Bleeding,No Lymphadenopathy Endocrine : No Polyuria, No Polydipsia, No Temperature Intolerance PMFSH Past Medical History Medical History Cervical cancer screening Dehydration during Abdominal pain affecting PTSD (post-traumatic stress disorder) Renal calculi Asthma Surgical History (Updated 03/23/24 @ 11:05 by JAGDEEP Damon) History of salpingostomy History of appendectomy [place] teeth extracted Family History Family History (Updated 03/23/24 @ 10:59 by JAGDEEP Damon) Father Anemia Paternal Grandmother Cancer AIDS Son Age: 6 Autism Son Age: 5 Clubbed foot Other Mental health disorder Social History Social History Household Members: Children Housing: Apartment Are you a primary child care teacher to a significant other at home: No Do you presently have visiting nurse or other home services: No Alcohol intake: never Patient Tobacco Use Status: Current everyday Tobacco user Tobacco use type: Cigarette Cigarette Packs Per Day: 0.25 Cigarettes Per Day: 2 Years Smoked: 5 yrs e-Cigarette/Vaping Use: Never Used Second Hand Smoke Exposure: Yes Substance Use Type: Marijuana Trauma History: PTSD (19 year old in her arms) Advance Directives: No Advance Directives Information Provided: No service: No Current occupational status: unemployed 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 Oriented X3. No acute distress. Well-appearing Eyes: Pupils equal, round and reactive to light. ENT: Pharynx normal. Neck: Normal inspection. Neck supple. No lymph nodes noted. No crepitus CVS: Normal heart rate and rhythm. Pulses normal. Normal S1 and S2 Respiratory: No respiratory distress. Breath sounds normal. No Wheezing. No rales Abdomen: Soft and nontender. No rigidity. No distention. Skin: Skin warm and dry. Normal skin color. Normal skin turgor. Extremities: No lower extremity edema. No Lacerations. No Rash Neuro: Oriented X 3. No motor deficit. No sensory deficit. Moving all extremities. No slurred speech. CN 2 through 12 grossly intact Psych: calm, cooperative, normal affect Course Course Course Narrative: RME, this is a rapid medical exam performed by Carlos Hanna please refer to primary provider for complete H&P- 33 year old female presents for evaluation of multiple complaints including leg weakness, leg pain, falls. She reports that she was at [facility] 2 weeks ago and had MRIs of her brain and spine. Plan for labs. She is quite well appearing in triage Medications Administered Discontinued Medications Generic Name Dose Route Start Last Admin Trade Name Freq PRN Reason Stop Dose Admin Ondansetron HCl 4 mg 08/05/24 18:08 08/05/24 18:11 Ondansetron Odt 4 Mg Tab.Rapdis TRANSLINGU 08/05/24 18:09 4 mg ONCE ONE Administration Medical Decision Making Medical Decision Making [facility] Narrative: My interpretation of labs: Patient's hematology and chemistry did not show any acute abnormality, negative UTI. Toxicology positive for THC. Discussed with the patient that if gap in the has helped her in the past, I will give her a short prescription and she needs to follow-up with a neurologist at [facility] and her PCP, patient agreeable with plan. Lab Data MDM Lab Attestation statement: I reviewed the patient's lab results. 08/05/24 13:05 08/05/24 13:05 Labs: Lab Results 08/05/24 Range/Units 13:05 WBC 6.6 (4.8-10.8) X10*3/uL RBC 4.49 (4.20-5.50) X10*6/uL Hgb 11.6 L (12.0-16.0) g/dl Hct 35.3 L (37.0-47.0) % MCV 78.6 L (80.0-98.0) fL MCH 25.8 L (27.0-33.0) pg MCHC 32.9 (31.0-35.0) g/dl RDW 15.8 (11.0-16.0) % Plt Count 335 (160-400) X10*3/uL MPV 9.5 (9.4-12.3) fL Immature Gran % (Auto) 0.5 H (0.0-0.4) % Neut % (Auto) 64.2 (45-73) % Lymph % (Auto) 26.2 (20-40) % Levy % (Auto) 5.6 (2-11) % Eos % (Auto) 3.0 (0-4) % Baso % (Auto) 0.5 (0-2) % Lymph # (Auto) 1.7 (1.2-4.9) X10*3/uL Levy # (Auto) 0.4 (0.1-1.2) X10*3/uL Eos # (Auto) 0.2 (0.0-0.4) X10*3/uL Baso # (Auto) 0.0 (0.0-0.2) X10*3/uL Abs Immat Gran (auto) 0.03 (0.00-0.03) X10*3/uL Absolute Neuts (auto) 4.3 (2.0-8.3) x10*3/uL Absolute Nucleated RBC 0.000 (0.0-0.012) X10*3/uL Nucleated RBC % (auto) 0.0 (0.0-0.2) /100WBC Sodium 140 (135-145) mmol/L Potassium 3.8 (3.3-5.1) mmol/L Chloride 115 H (96-108) mmol/L Carbon Dioxide 19 L (22-29) mmol/L Anion Gap 10 L (12-20) BUN 7 L (9-16) mg/dL Creatinine 0.52 (0.5-1.4) mg/dL Estim Creat Clear Calc 116.1 Estimated GFR > 60 Random Glucose 93 (60-115) mg/dL Calcium 9.0 D (8.4-10.2) mg/dL Magnesium 1.9 (1.6-2.6) mg/dL Total Bilirubin 0.6 (0.0-1.0) mg/dL AST 15 (5-31) U/L ALT 10 (0-31) U/L Alkaline Phosphatase 70 (39-117) U/L Total Creatine Kinase 95 (26-140) U/L Total Protein 7.9 (6.5-8.0) g/dL Albumin 4.5 (3.5-5.0) g/dL Lipase 25 (8-78) U/L Beta HCG, Quant < 2 mIU/mL Urine Color Yellow Urine Appearance Clear Urine pH 5.5 (5.0-9.0) Ur Specific [place] 1.020 (1.005-1.025) Urine Protein Negative (Neg-Trace) mg/dL Urine Glucose (UA) Negative (Negative) mg/dL Urine Ketones Negative (Negative) mg/dL Urine Blood Moderate (2+) H (Negative) Urine Nitrite Negative (Negative) Ur Leukocyte Esterase Negative (Negative) Urine RBC 0-2 (0-2) /HPF Urine WBC 0-5 (0-5) /HPF Ur Squamous Epith Cells 3-5 (0-2) /HPF Urine Bacteria None Seen (None Seen) Hyaline Casts 0-2 (0-2) /LPF Urine Opiates Screen Not Detected (Not Detect) Ur Buprenorphine Scrn Not Detected (Not Detect) ng/mL Ur Oxycodone Screen Not Detected (Not Detect) ng/mL Urine Methadone Screen Not Detected (Not Detect) ng/mL Urine Fentanyl Screen Not Detected (Not Detect) Ur Barbiturates Screen Not Detected (Not Detect) Ur Phencyclidine Scrn Not Detected (Not Detect) Ur Amphetamines Screen Not Detected (Not Detect) U Benzodiazepines Scrn Not Detected (Not Detect) Urine Cocaine Screen Not Detected (Not Detect) U Marijuana (THC) Screen POSITIVE H (Not Detect) Discharge Plan Discharge Clinical Impression: Chronic neuropathic pain Patient Disposition: Home, Self-Care Instructions: Peripheral Neuropathy (ED) Additional Instructions: Please follow-up with your primary care physician tomorrow. If you have any worsening or new symptoms, please return to the emergency room or call 911 Prescriptions: New gabapentin 100 mg capsule 100 mg PO TID PRN (Reason: Neuropathic pain) Qty: 30 0RF No Action (DME) Shower Chair Misc See Rx Instructions .Route Qty: 1 0RF Rx Instructions: As directed (DME) Grab bar Misc See Rx Instructions .Route Qty: 1 0RF Rx Instructions: As directed (DME) walker Misc See Rx Instructions .Route Qty: 1 0RF Rx Instructions: As directed Print Language: [place] Timorese
[2024-08-05 12:53] VITALS: BP 136/101; PULSE 105; RESP 18; TEMP 36.8; O2SAT 98; BMI 22.5
[2024-08-05 13:10] LABS: MANUAL DIFF FLAG NO
[2024-08-05 13:14] LABS: Appearance Urine Clear; Basophils Percent Auto 0.5 % (0-2); Color Urine Yellow; Eosinophils Absolute Auto 0.2 X10*3/uL (0.0-0.4); Glucose Urine UA Negative (Negative); Hematocrit 35.3 % (37.0-47.0); Hemoglobin 11.6 g/dl (12.0-16.0); Imm Gran Abs Auto 0.03 X10*3/uL (0.00-0.03); Imm Gran Pct Auto 0.5 % (0.0-0.4); Leukocyte Esterase Urine Negative (Negative); Lymphocytes Absolute Auto 1.7 X10*3/uL (1.2-4.9); Lymphocytes Percent Auto 26.2 % (20-40); Mean Corpuscular HGB Conc 32.9 g/dl (31.0-35.0); Mean Corpuscular Hemoglobin 25.8 pg (27.0-33.0); Mean Corpuscular Volume 78.6 fL (80.0-98.0); Mean Platelet Volume 9.5 fL (9.4-12.3); Monocytes Absolute Auto 0.4 X10*3/uL (0.1-1.2); Monocytes Percent Auto 5.6 % (2-11); Neutrophils Absolute Auto 4.3 x10*3/uL (2.0-8.3); Neutrophils Percent Auto 64.2 % (45-73); Nitrite Urine Negative (Negative); PH 5.5 (5.0-9.0); Platelet Count 335 X10*3/uL (160-400); Red Blood Count 4.49 X10*6/uL (4.20-5.50); Red Cell Distribution Width 15.8 % (11.0-16.0); UMIC TRIGGER UACC YES; Urine Blood Moderate (2+) (Negative); Urine Ketones Negative (Negative); Urine Protein Negative (Neg-Trace); White Blood Count 6.6 X10*3/uL (4.8-10.8)
[2024-08-05 13:29] LABS: Amphetamine Screen Urine Not Detected (Not Detect); Bacteria Urine None Seen (None Seen); Barbiturates, Urine Not Detected (Not Detect); Benzodiazepines Screen Urine Not Detected (Not Detect); Buprenorphine Scr Not Detected (Not Detect); Cannabinoid Screen Urine POSITIVE (Not Detect); Cocaine Screen Urine Not Detected (Not Detect); Fentanyl, urine Not Detected (Not Detect); Hyaline Casts Urine 0-2 /LPF (0-2); Methadone Screen, Urine Not Detected (Not Detect); Opiate Screen Urine Not Detected (Not Detect); Oxycodone Screen Urine Not Detected (Not Detect); Phencyclidine Screen Urine Not Detected (Not Detect); RBC Urine 0-2 /HPF (0-2); WBC Urine 0-5 /HPF (0-5)
[2024-08-05 13:37] LABS: Alanine Aminotransferase 10 U/L (0-31); Albumin Level 4.5 g/dL (3.5-5.0); Alkaline Phosphatase 70 U/L (39-117); Anion Gap 10 (12-20); Aspartate Amino Transferase 15 U/L (5-31); Bilirubin Total 0.6 mg/dL (0.0-1.0); Blood Urea Nitrogen 7 mg/dL (9-16); Carbon Dioxide 19 mmol/L (22-29); Chloride 115 mmol/L (96-108); Creatinine Clr Calc Pharmacy 116.1; Estimated Glomerular Filt Rate > 60; Glucose Random 93 mg/dL (60-115); Lipase 25 U/L (8-78); Magnesium 1.9 mg/dL (1.6-2.6); Potassium 3.8 mmol/L (3.3-5.1); Sodium 140 mmol/L (135-145); Total Protein 7.9 g/dL (6.5-8.0)
[2024-08-05 13:40] LABS: HCG Quantitative < 2 mIU/mL
[2024-08-05 16:28] VITALS: BP 147/82; PULSE 99; RESP 18; TEMP 36.6; O2SAT 99
--- NOTE | 2024-08-05 18:08 | PC.NURSE ---
Patient crying in room, requesting medication for nausea as her pain is causing her nausea.
[2024-08-05] MEDS: Ondansetron ODT 4 MG TAB.RAPDIS TRANSLINGU (18:11)
[2024-08-05 18:56] VITALS: BP 144/93; PULSE 72; RESP 16; TEMP 36.7; O2SAT 97
[2024-08-05 18:59] VITALS: BP 144/93; PULSE 72; RESP 16; TEMP 36.7; O2SAT 97
--- OUTSIDE RECORDS SUMMARY | 2024-08-05 19:39 | XMS_ITS | Encounter Summary ---
Author Organization [employer] Address [address] [place] [address] [address] [place] [address] Care Team Providers Care Home Service Advisor Name Role Phone Unavailable Primary Care Provider Unavailabl e Reason for Visit * Reason Onset Date Comments crown broke off 09/10/2023 Encounter Details Date Type Department Care Team (Late st Contact Info) Description 09/10/2023 Telephone [facility] [address] [place] [address] Shayy Rush DDS [address] [place] [address] crown broke off Social History Tobacco Use Types Packs/Day Years Used Date Smoking Tobacco: Every Day Cigarettes Comments Unknown Sex and Gender Information Value Date Recorded Sex Assigned at Female 05/06/2022 10:18 AM EDT Legal Sex Female 10:18 AM EDT Gender Identity Female 05/06/2022 10:18 AM EDT Sexual Orientation Straight 05/06/2022 10 :18 AM EDT documented as of this encounter Miscellaneous Notes * Telephone Encounter - Chi Ocasio DMD - 09/11/2023 8:00 AM EST Please follow up with Dr. Benson. Thanks * Telephone Encounter - Hazel Schaffer - 09/10/2023 12:07 PM EST Patient called in stating that her crown on the front side broke off. The whole shell fell off. Sheis trying to get on the schedule to have it checked out. No pain or swelling. I don't see anywhere I can get her in. Is this considered urgent? If so can you coordinate with front end developer javascript html css for scheduling. documented in this encounter Plan of Treatment Not on file documented as of this encounter Visit Diagnoses Not on filedocumented in this encounter
--- OUTSIDE RECORDS SUMMARY | 2024-08-05 19:39 | XMS_ITS | Clinical Summary ---
Author Organization [facility] Address [address] [place] [address] 7 [place] [address] Care Team Providers Care It Infrastructure Specialist Name Role Phone Unavailable Primary Care Provider Unavailabl e Allergies Active Allergy Reactions Criticality Noted Date Comments Shellfish Allergy 05/02/2023 [place] Extract 05/02/2023 Medications Sodium Fluoride (PreviDent 5000 Booster Plus) 1.1 % paste Apply 1 application to teeth 2 times daily. 112 g 3 Active Additional Information Patient not taking.Reported on 02/18/2024 Active Problems Problem Noted Date Diagnosed Date Tipped teeth 02/18/2024 Decalcification of tooth 02/18/2024 Dental calculus 02/18/2024 Periodontal disease 02/18/2024 Acute gingival inflammation 02/18/2024 Gingival bleeding 02/18/2024 Retained dental root 10/10/2023 Non-restorable tooth 06/12/2023 07/07/2022 Social History Tobacco Use Types Packs/Day Years Used Date Smoking Tobacco: Every Day Cigarettes Smokeless Tobacco: Current Tobacco Cessation:Ready to Q uit: Not Asked; Counseling Given: Not Answered Alcohol Use Standard Drinks/Week Comments Defer 0 (1 standard drink = 0.6 oz pur e alcohol) Comments Unknown Sex and Gender Information Value Date Recorded Sex Assigned at Female 05/06/2022 10:18 AM EDT Legal Sex Female 10:18 AM EDT Gender Identity Female 05/06/2022 10:18 AM EDT Sexual Orientation Straight 05/06/2022 10 :18 AM EDT Last Filed Vital Signs Vital Sign Reading Time Taken Comments Blood Pressure 104/64 02/18/2024 11:04 AM EDT Pulse - - Temperature - - Respiratory Rate - - Oxygen Saturation - - Inhaled Oxygen Concentration - - Weight - - Height - - Body Mass Index - - Plan of Treatment Health Maintenance Due Date Last Done Comments Depression Screening 1990 HIV Screening 1990 Lipid Panel 1990 SDOH Screening 1990 Alcohol/Substance Use Screening 2002 Family Planning (PISQ) 2005 Hepatitis C Screening 2008 DTaP/Tdap/Td Vaccines (1 - Tdap) 2009 Hepatitis B Vaccines (1 of 3 - 19+ 3-dose series) 2009 Pneumococcal Vaccine: Pediatrics (0 to 5 Years) and At-Risk Patients (6 to 49) Years) (1 of 2 - PCV) 2009 Pap Smear 10/31/2011 Cervical Cancer Screening 2020 HPV/Cotest 2020 COVID-19 Vaccine (1 - 2023- season) 2024 Influenza Vaccine (#1) 2024 Dental Oral Exam 08/21/2024 02/18/2024, , 10/31/2017, Additional history exists Dental Prophylaxis 08/21/2024 02/18/2024 Tobacco Screening 02/17/2025 02/18/2024 Dental X-Ray: Bitewings 02/18/2025 02/18/20 24, 05/02/2023, 10/31/2017, Additional history exists Dental X-Ray: Full Mouth 02/18/2027 024, 05/03/2016, 07/28/2014 Zoster Vaccines (1 of 2) 2040 RSV Patients and Patients Aged 60 years or older (1 - 1-dose 75+ series) 2065 HIB Vaccines Aged Out No longer eligi ble based on patient's age to complete this topic HPV Vaccines Aged Out No longer eligi ble based on patient's age to complete this topic Hepatitis A Vaccines Aged Out No long er eligible based on patient's age to complete this topic IPV Vaccines Aged Out No longer eligi ble based on patient's age to complete this topic Meningococcal Vaccine Aged Out No kasi gina eligible based on patient's age to complete this topic RSV under 20 months Aged Out No longe r eligible based on patient's age to complete this topic Rotavirus Vaccines Aged Out No longer eligible based on patient's age to complete this topic Procedures Procedure Name Priority Date/Time Associated Diagnosis Comments PROPHYLAXIS - ADULT Routine 02/18/2024 1 1:00 AM EDT Dental calculus Periodontal disease Acute gingival inflammation Gingival bleeding DIAGNOSTIC - DIAGNOSTIC IMAGING - INTRAORAL - COMPREHENSIVE SERIES OF RADIOGRAPHIC IMAGES Routine 02/18/2024 11:00 AM EDT Tipped teeth Decalcification of tooth Dental calculus Periodontal disease Acute gingival inflammation Gingival bleeding Dental caries PERIODIC ORAL EVALUATION - ESTABLISHED PATIENT Routine 02/18/2024 11:00 AM EDT from Last 3 Months or Most Recently Relevant to Health Maintenance Insurance [facility] MEDICAID STAND ADULT
== END 2024-08-05 19:00 | disposition home or self-care (01) ==
PROVIDERS: Physician Assistant; Emergency Provider Emergency Medicine; PCP Internal Medicine
DX: G62.89 Other specified polyneuropathies (principal); F17.210 Nicotine dependence, cigarettes, uncomplicated; F12.90 Cannabis use, unspecified, uncomplicated; J45.909 Unspecified asthma, uncomplicated; Z79.899 Other long term (current) drug therapy
CPT/HCPCS: 36415; 80053; 80307; 81001; 82550; 83690; 83735; 84702; 85025; 99283

== ENCOUNTER 2024-08-18 11:30 | Outpatient (AMB) | payer OTHER, SELFPAY ==
--- NOTE | 2024-08-18 11:30 | MHC.PC.OV ---
Intake Visit Reasons: [facility] 08[place] Android Intake Note: Patient is here to follow-up after a visit the emergency department at [facility] on 08/05/24 Distresser Required: No Tattoo Technician: Not Required per policy Accompanied by: Self / Same As Patient Allergies hydroxyprogesterone [From MOISÉS] Allergy (Severe, Verified 08/18/24 11:32) ANAPHYLAXIS strawberry [STRAWBERRY] Allergy (Unknown, Verified 08/18/24 11:32) ANAPHYLAXIS SEAFOOD Allergy (Unknown, Uncoded 08/18/24 11:32) SHORTNESS OF BREATH seafood Allergy (Unknown, Uncoded 08/18/24 11:32) anaphylaxis shellfish Allergy (Unknown, Uncoded 08/18/24 11:32) anaphylaxis strawberries Allergy (Unknown, Uncoded 08/18/24 11:32) swelling of lips and tongue Medication List - Last Reconciled 08/18/24 by Cassie Vines PA-C gabapentin 100 mg PO TID PRN Grab bar As directed Shower Chair As directed walker As directed Tobacco use date assessed: 08/18/24 Dental Screening Dental Screen Date: 08/18/24 Did you have a dental visit in the last 12 months?: Yes Did you have a dental problem in the last 6 months where you did not have access to dental care?: No Was dental information given to patient?: Patient has dentist HPI [facility] 08/05 Android HPI Details 33-year-old female with past medical history of asthma, generalized anxiety disorder and tobacco abuse last seen 04/2024 coming in for follow up. In review of the notes, patient was seen in [facility] ED 08/05/2024 for diffuse pain currently following with a neurologist at [facility]. Patient was given gabapentin 100 mg to be used as needed and advised to follow up with neurologist and PCP. Patient tells us today she has not yet seen the neurologist as she has forgotten to follow up and has not yet made an appointment. She states the neuropathy pain and the tremor has been worsening. Bilateral legs have been giving out on occasion and having numbness and tingling. She has been in and out of the emergency department both at 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 She states she needs a lot of help around the house and relies primarily on her for this. Waiting on [facility] records. [facility] Medical History Cervical cancer screening Dehydration during Abdominal pain affecting PTSD (post-traumatic stress disorder) Renal calculi Asthma Surgical History (Updated 03/23/24 @ 11:05 by JAGDEEP Damon) History of salpingostomy History of appendectomy [place] teeth extracted Family History (Updated 03/23/24 @ 10:59 by JAGDEEP Damon) Father Anemia Paternal Grandmother Cancer AIDS Son Age: 7 Autism Son Age: 5 Clubbed foot Other Mental health disorder Social History Household Members: Children Both parents involved: No Housing: Apartment Are you a primary chronic care nurse to a significant other at home: No Do you presently have visiting nurse or other home services: No 75 years or older and lives alone: No Alcohol intake: never Patient Tobacco Use Status: Current everyday Tobacco user Tobacco use type: Cigarette Cigarette Packs Per Day: 0.25 Cigarettes Per Day: 2 Years Smoked: 5 yrs e-Cigarette/Vaping Use: Never Used Second Hand Smoke Exposure: Yes Substance Use Type: Marijuana Trauma History: PTSD (19 year old in her arms) service: No Current occupational status: unemployed 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 1. Little interest or pleasure in doing things: not at all 2. Feeling down, depressed, or hopeless: not at all 3. Trouble falling or staying asleep, or sleeping too much: not at all 4. Feeling tired or having little energy: not at all 5. Poor appetite or overeating: not at all 6. Feeling bad about yourself - or that you are a failure or have let yourself or your family down: not at all 7. Trouble concentrating on things, such as reading the newspaper or watching television: not at all 8. Moving or speaking so slowly that other people could have noticed. Or the opposite - being so fidgety or restless that you have been moving around a lot more than usual: not at all 9. Thoughts that you would be better off or of hurting yourself in some way: not at all Total score: 0 Depression Screening Interpretation: Negative Depression Screening Done: Yes Source: Developed by Drs. Kike Hines, Allie Deng, Jitendra Payne and colleagues, with an educational angelica from [employer]. Thrive Questionnaire Date Thrive assessed: 08/18/24 I am a: Patient What is your living situation today?: I have a steady place to live Within the past 12 months, did the food you bought not last and you didn't have the money to get more?: Never true Within the past 12 months, did you worry whether your food would run out before you got money to buy more?: Never true Do you have trouble paying for medicines?: No Do you have trouble getting transportation to medical appointments?: No Do you have trouble paying your heating and electricity bill?: No Do you have trouble taking care of your child, family member or friend?: No Do you have trouble with day-to-day activities such as bathing, preparing meals, shopping, managing finances, etc.?: No Are you currently unemployed and looking for a job?: No Are you interested in more education?: No Please select the resources that you would like help with: None Currently or been in a relationship where the following occur: No concerns reported THRIVE Score: 0 AUDIT C Alcohol Use Questionnaire (AUDIT-C) 1. How often do you have a drink containing alcohol?: 2-4 times a month 2. How many drinks containing alcohol do you have on a typical day when you are drinking?: 1 or 2 Total Score: 2 IRVING-7 AMB Questionnaire IRVING-7 Date IRVING - 7 assessed: 08/18/24 Feeling nervous, anxious, or on edge: 0 = Not at all Not being able to stop or control worryin = Not at all Worrying too much about different things: 0 = Not at all Trouble relaxin = Not at all Being so restless that it is hard to sit still: 0 = Not at all Becoming easily annoyed or irritable: 0 = Not at all Feeling afraid as if something awful might happen: 0 = Not at all Total IRVING-7 score (0-4 normal; 5-9 mild; 10-14 moderate; 15-21 severe): 0 Source: Developed by Drs. Kike Hines, Allie Deng, Jitendra Payne and colleagues, with an educational angelica from [employer]. Review of Systems Const Denies body aches, Denies chills, Denies fever(s), Denies headache(s), Denies poor appetite and Reports weakness Eyes Reports no additional complaints ENT Reports no additional complaints, Denies dizziness and Denies headache(s) Card Denies chest pain, Denies lightheadedness and Denies dyspnea Resp Denies dyspnea GI Reports no additional complaints Reports no additional complaints Musc Reports abnormal gait, Reports muscle cramps and Reports numbness Skin/Breast Reports system reviewed and no additional complaints, except as documented Neuro Reports abnormal gait, Denies dizziness, Denies headache(s), Reports numbness and Reports weakness Psych Reports no additional complaints Physical exam (Primary Care) Vital Signs: Physical exam not performed due to nature of telehealth visit Tobacco/Smoking Status: Tobacco use Status Tobacco use date assessed 08/18/24 08/18/24 11:35 Patient Tobacco Use Status Current everyday Tobacco 08/18/24 11:35 Tobacco use type Cigarette 08/18/24 11:35 e-Cigarette/Vaping Use Never Used 08/18/24 11:35 PHQ-9: PHQ-9 Score PHQ-9: Total score 0 08/18/24 14:16 Depression Screening Interpretation: Negative Thrive Assessment: Date of Thrive Assessment Date Thrive assessed 08/18/24 08/18/24 11:35 Currently or been in a relationship where the following occur: No concerns reported Telehealth Telehealth Telehealth Platform: [facility] Location of provider rendering services: practice address Location of patient: address on file Patient Identification confirmed using: Name, : Yes Telehealth method: video Patient verbally consented to treatment: Yes Patient verbally consented to billing insurance company: Yes Patient informed of any privacy concerns related to visit: Yes Coding Level of Care Code Tele Est Pt Level 3 (48817) Diagnoses Lower extremity numbness R20.0 Bilateral knee pain M25.561; M25.562 Tremor of both hands R25.1 Assessment & Plan Assessment & Plan (1) Lower extremity numbness: Code(s): R20.0 - Anesthesia of skin Category: Medical Plan: Patient states she was diagnosed with a spinal fistula while at [facility]. Currently waiting on [facility] notes to be scanned to the chart. Once the notes have been reviewed plan to work with [facility] services and follow up with Neurology. Patient states she has not been able to follow up with the neurologist as of yet due to transportation issues. Patient was provided with Neurology phone number today and advised to reach out as soon as possible to book appointment. (2) Bilateral knee pain: Code(s): M25.561 - Pain in right knee; M25.562 - Pain in left knee Category: Medical Plan: Continue use Tylenol and ibuprofen as needed for pain. Given gabapentin for lower extremity pain. (3) Tremor of both hands: Code(s): R25.1 - Tremor, unspecified Category: Medical Plan: Patient states tremor is still present but declines medical management states she would like to treat the root cause. Referral placed to neurology several months ago. Patient provided with neurology number advised to reach out to the office to book appointment Plan This note was constructed using voice recognition software. While every effort has been made to ensure accuracy and section crews activities clerk, still areas may have been included sometimes these areas may affect the content or meeting of the given symptoms. Total time spent caring for the patient today was 20 minutes. This includes time spent before the visit reviewing the chart, time spent during the visit, and time spent after the visit and documentation.
--- OUTSIDE RECORDS SUMMARY | 2024-08-18 13:23 | XMS_ITS | Clinical Summary ---
Author Organization [facility] Address [address] [place] [address] [address] [place] [address] Care Team Providers Care Inside Sales Director Name Role Phone Unavailable Primary Care Provider Unavailabl e Allergies Active Allergy Reactions Criticality Noted Date Comments Shellfish Allergy 05/02/2023 [place] Extract 05/02/2023 Medications Sodium Fluoride (PreviDent 5000 [...] Most Recently Relevant to Health Maintenance Insurance [facility] MEDICAID STAND ADULT
--- OUTSIDE RECORDS SUMMARY | 2024-08-18 13:23 | XMS_ITS | Encounter Summary ---
Author Organization [employer] Address [address] [place] [address] [address] [place] [address] Care Team Providers Care Animal Care Worker Name Role Phone Unavailable Primary Care Provider Unavailabl e Reason for Visit * Reason Onset Date Comments crown broke off 09/10/2023 Encounter Details Date Type Department Care Team (Late st Contact Info) Description 09/10/2023 Telephone [facility] [address] [place] [address] Shayy Rush DDS [address] [place] [address] crown broke off Social History Tobacco Use [...] Dr. Benson. Thanks * Telephone Encounter - Hazelchely Joes - 09/10/2023 12:07 PM EST Patient called in stating that her crown on the front side broke off. The whole shell fell off. Sheis trying to get on the schedule to have it checked out. No pain or swelling. I don't see anywhere I can get her in. Is this considered urgent? If so can you coordinate with javascript front end developer for scheduling. documented in this encounter Plan of Treatment Not on file documented as of this encounter Visit Diagnoses Not on filedocumented in this encounter
== END 2024-08-18 11:52 | disposition home or self-care (01) ==
LOC: HO.HMCH 11:30
PROVIDERS: PCP Internal Medicine
DX: R20.0 Anesthesia of skin (principal); M25.561 Pain in right knee; M25.562 Pain in left knee; R25.1 Tremor, unspecified

== ENCOUNTER → 2024-08-18 11:30 | Outpatient (BNVA) | payer OTHER, SELFPAY | PROVIDERS: PCP Internal Medicine ==

== ENCOUNTER 2024-08-27 08:36 | Outpatient (AMB) | payer OTHER, SELFPAY ==
[2024-08-27 08:39] VITALS: BP 128/84; PULSE 95; O2SAT 98; BMI 23.6
--- NOTE | 2024-08-27 08:39 | A.OFFPC_ITS ---
Vital Signs 08/27/24 08:39 Height 5 ft 1 in Weight 125 lb 2 oz BMI 23.6 BP 128/84 Blood Pressure Location Lt brachial Position Sitting Pulse 95 Pulse Source Pulse Oximeter Pulse Oximetry (%) 98 Oxygen Delivery Method Room Air Intake Visit Reasons: [facility] 08/20 did not sleep for 36 hrs Processing Mgr Required: No Accompanied by: Self / Same As Patient Allergies hydroxyprogesterone [From MOISÉS] Allergy (Severe, Verified 08/27/24 08:40) ANAPHYLAXIS strawberry [STRAWBERRY] Allergy (Unknown, Verified 08/27/24 08:40) ANAPHYLAXIS SEAFOOD Allergy (Unknown, Uncoded 08/27/24 08:40) SHORTNESS OF BREATH seafood Allergy (Unknown, Uncoded 08/27/24 08:40) anaphylaxis shellfish Allergy (Unknown, Uncoded 08/27/24 08:40) anaphylaxis strawberries Allergy (Unknown, Uncoded 08/27/24 08:40) swelling of lips and tongue Medication List - Last Reconciled 08/27/24 by Cassie Vines PA-C gabapentin 100 mg PO BID PRN 30 days Grab bar As directed quetiapine (Seroquel) 25 mg PO BEDTIME Shower Chair As directed walker As directed Tobacco use date assessed: 08/27/24 Dental Screening Dental Screen Date: 08/27/24 Did you have a dental visit in the last 12 months?: Yes Did you have a dental problem in the last 6 months where you did not have access to dental care?: No Was dental information given to patient?: Patient has dentist HPI [facility] 08/20 did not sleep for 36 hrs HPI Details 33-year-old female with past medical his tory of asthma, generalized anxiety disorder and tobacco abuse last seen 08/2023 coming in for hospital discharge follow up. Patient was seen in [facility] ED by crisis and refuse care. Patient tells us today she has been struggling with lack of sleep. She will sometimes go several days without sleeping during these times she hyper fixates on certain things such as cleaning or studying. After these episodes they will be followed by several days of sleeping and feeling down. [facility] Medical History Cervical cancer screening Dehydration during Abdominal pain affecting PTSD (post-traumatic stress disorder) Renal calculi Asthma Surgical History History of salpingostomy History of appendectomy Independence teeth extracted Family History Father Anemia Paternal Grandmother Cancer AIDS Son Age: 7 Autism Son Age: 5 Clubbed foot Other Mental health disorder Social History Household Members: Children Both parents involved: No Housing: Apartment Are you a primary long term care social worker to a significant other at home: No Do you presently have visiting nurse or other home services: No 75 years or older and lives alone: No Alcohol intake: never Patient Tobacco Use Status: Current everyday Tobacco user Tobacco use type: Cigarette Cigarette Packs Per Day: 0.25 Cigarettes Per Day: 2 Years Smoked: 5 yrs e-Cigarette/Vaping Use: Never Used Second Hand Smoke Exposure: Yes Substance Use Type: Marijuana Trauma History: PTSD (19 year old in her arms) service: No Current occupational status: unemployed 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 1. Little interest or pleasure in doing things: not at all 2. Feeling down, depressed, or hopeless: not at all 3. Trouble falling or staying asleep, or sleeping too much: not at all 4. Feeling tired or having little energy: not at all 5. Poor appetite or overeating: not at all 6. Feeling bad about yourself - or that you are a failure or have let yourself or your family down: not at all 7. Trouble concentrating on things, such as reading the newspaper or watching television: not at all 8. Moving or speaking so slowly that other people could have noticed. Or the opposite - being so fidgety or restless that you have been moving around a lot more than usual: not at all 9. Thoughts that you would be better off or of hurting yourself in some way: not at all Total score: 0 Depression Screening Interpretation: Negative Depression Screening Done: Yes Source: Developed by Drs. Kike Hines, Jitendra Rajan and colleagues, with an educational angelica from [employer]. Thrive Questionnaire Date Thrive assessed: 08/27/24 I am a: Patient What is your living situation today?: I have a steady place to live Within the past 12 months, did the food you bought not last and you didn't have the money to get more?: Never true Within the past 12 months, did you worry whether your food would run out before you got money to buy more?: Never true Do you have trouble paying for medicines?: No Do you have trouble getting transportation to medical appointments?: No Do you have trouble paying your heating and electricity bill?: No Do you have trouble taking care of your child, family member or friend?: No Do you have trouble with day-to-day activities such as bathing, preparing meals, shopping, managing finances, etc.?: No Are you currently unemployed and looking for a job?: No Are you interested in more education?: No Please select the resources that you would like help with: None Currently or been in a relationship where the following occur: No concerns reported THRIVE Score: 0 AUDIT C Alcohol Use Questionnaire (AUDIT-C) 1. How often do you have a drink containing alcohol?: 2-4 times a month 2. How many drinks containing alcohol do you have on a typical day when you are drinking?: 1 or 2 Total Score: 2 IRVING-7 AMB Questionnaire IRVING-7 Date IRVING - 7 assessed: 08/27/24 Feeling nervous, anxious, or on edge: 1 = Several days Not being able to stop or control worryin = Not at all Worrying too much about different things: 1 = Several days Trouble relaxin = Several days Being so restless that it is hard to sit still: 1 = Several days Becoming easily annoyed or irritable: 1 = Several days Feeling afraid as if something awful might happen: 0 = Not at all Total IRVING-7 score (0-4 normal; 5-9 mild; 10-14 moderate; 15-21 severe): 5 Source: Developed by Drs. Kike Hines, Jitendra Rajan and colleagues, with an educational angelica from [employer]. Review of Systems Const Denies body aches, Denies chills, Denies fever(s), Denies headache(s) and Denies poor appetite Eyes Reports no additional complaints ENT Denies dizziness and Denies headache(s) Card Denies chest pain, Denies lightheadedness and Denies dyspnea Resp Denies cough and Denies dyspnea GI Reports no additional complaints Reports no additional complaints Musc Reports no additional complaints and Denies abnormal gait Skin/Breast Reports system reviewed and no additional complaints, except as documented Neuro Denies abnormal gait, Denies dizziness and Denies headache(s) Psych Reports no additional complaints Physical exam (Primary Care) Vital Signs: Oxygen Delivery Method Room Air 08/27/24 08:39 Tobacco/Smoking Status: Tobacco use Status Tobacco use date assessed 08/18/24 08/18/24 11:35 Patient Tobacco Use Status Current everyday Tobacco 08/18/24 11:35 Tobacco use type Cigarette 08/18/24 11:35 e-Cigarette/Vaping Use Never Used 08/18/24 11:35 Depression Screening Interpretation: Negative Thrive Assessment: Date of Thrive Assessment Date Thrive assessed 08/18/24 08/18/24 11:35 Currently or been in a relationship where the following occur: No concerns reported Const General: cooperative, healthy appearing, comfortable and no acute distress Orientation/consciousness: patient oriented x3 HENMT Head: Yes normocephalic Ears: hearing grossly normal bilaterally General nose exam: Normal external nose present Eyes General: appearance normal, both eyes and all related structures Conjunctivae: conjunctivae normal Neck Neck: Yes full ROM and Yes no lymphadenopathy Resp Effort & Inspection: normal respiratory effort Auscultation: clear to auscultation bilaterally, no crackles, no rales, no rhonchi and no wheezes Cardio Rate: regular rate Rhythm: regular rhythm Skin General skin exam: no rashes or lesions noted Neuro General: patient oriented x3 Gait exam (Neuro): Normal gait present Extrem General: Yes normal to inspection, Yes full ROM and No edema Psych Affect: normal affect Attitude: cooperative Insight: Good insight present (Psych) Judgement: Good judgement present (Psych) Coding Level of Care Code Est Pt Level 4 (39620) Diagnoses Lower extremity numbness R20.0 Anxiety F41.9 Hypersomnolence G47.10 Insomnia G47.00 Assessment & Plan Assessment & Plan (1) Lower extremity numbness: Code(s): R20.0 - Anesthesia of skin Category: Medical Plan: Patient was referred to Neurology several months ago. Patient was provided with Neurology office number at today's visit advised to reach out to schedule appointment. Patient did have neuropathy as evidenced by lower extremity EMG which was completed several months ago. Was having good relief for lower extremity pain with gabapentin which was refilled today. (2) Anxiety: Code(s): F41.9 - Anxiety disorder, unspecified Category: Medical Plan: Patient is having history of anxiety not currently on medical management. She does not feel she has anxiety symptoms at this time. (3) Hypersomnolence: Code(s): G47.10 - Hypersomnia, unspecified Category: Medical Plan: Patient feeling excessive fatigue due to lack of sleep was recommended to have possible home sleep study completed. Referral placed today. (4) Insomnia: Code(s): G47.00 - Insomnia, unspecified Category: Medical Plan: Patient complaining of episodes not being able to sleep for several days. I discussed with the patient today the possibility of bipolar disorder the some of her symptoms in line with the criteria for diagnosis of bipolar. I had the community navigator discussed with the patient Psychiatry Services I will place the referral today. Also starting patient on Seroquel for treatment of insomnia. I discussed at length side effects of Seroquel and when to present for re-evaluation. Plan to follow up in 1 month. Plan This note was constructed using voice recognition software. While every effort has been made to ensure accuracy and ice cream maker, still areas may have been included sometimes these areas may affect the content or meeting of the given symptoms. Total time spent caring for the patient today was 20 minutes. This includes time spent before the visit reviewing the chart, time spent during the visit, and time spent after the visit and documentation. Orders: Orders RT home sleep study Today G47.10 - Hypersomnia, unspecified Referrals Psychiatry Referral F41.9 - Anxiety disorder, unspecified, G47.00 - Insomnia, unspecified Medications: New quetiapine (Seroquel) 25 mg PO BEDTIME 30 tabs 1RF Changed From gabapentin 100 mg PO TID PRN 30 caps 0RF Neuropathic pain To gabapentin 100 mg PO BID 30 days PRN 60 caps 0RF Neuropathic pain
--- OUTSIDE RECORDS SUMMARY | 2024-08-27 08:54 | XMS_ITS | Encounter Summary ---
Author Organization [employer] [facility] Address [address] [place] [address] [address] [place] [address] Care Team Providers Care Product Mgr Name Role Phone Unavailable Primary Care Provider Unavailabl e Encounter Details Date Type Department Care Team (Late st Contact Info) Description 02/18/2024 11:00 AM EDT Office Visit [facility] ADULT [facility] [address] [place] [address] Sylvie Slaughter [address] [place] [id number] Tipped teeth (Primary Dx); Decalcification of tooth; Dental calculus; Periodontal disease; Acute gingival inflammation; Gingival bleeding; Dental caries Social History Tobacco Use Types Packs/Day Years Used Date Smoking Tobacco: Every Day Cigarettes Smokeless Tobacco: Current Alcohol Use Standard Drinks/Week Comments Defer 0 (1 standard drink = 0.6 oz pur e alcohol) Comments Unknown Sex and Gender Information Value Date Recorded Sex Assigned at Female 05/06/2022 10:18 AM EDT Legal Sex Female 10:18 AM EDT Gender Identity Female 05/06/2022 10:18 AM EDT Sexual Orientation Straight 05/06/2022 10 :18 AM EDT documented as of this encounter Last Filed Vital Signs Vital Sign Reading Time Taken Comments Blood Pressure 104/64 02/18/2024 11:04 AM EDT Pulse - - Temperature - - Respiratory Rate - - Oxygen Saturation - - Inhaled Oxygen Concentration - - Weight - - Height - - Body Mass Index - - documented in this encounter Progress Notes * Sylvie Slaughter - 02/18/2024 11:00 AM EDT Patient ID: Ellen Brizuela is a 33 y.o. female. Time Out: Timeout Date: 02/18/24, Timeout Time: 1105 Location: [facility] Tooth: Maxilla and Mandible Procedure: Exam, X-rays, and Gross debridement only, Perio chart. 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 Confirmed via patient's chart, intraorally and by radiographs. Chief Librarian Music Department: not applicable Medical Hx: Vitals: Blood pressure 104/64. Medications, Med Hx reviewed with patient and updated in chart. Pt gave December 16, 2023. Treatment Provided Dental procedures in this visit D1110 - PROPHYLAXIS - ADULT (Completed) Service provider: Sylvie Slaughter [place] provider: Jay Negron DDS D0210 - INTRAORAL - COMPLETE SERIES OF RADIOGRAPHIC IMAGES (Completed) Service provider: Sylvie Slaughter Billing provider: Jay Negron DDS D9450 - CASE PRESENTATION, DETAILED AND EXTENSIVE TREATMENT PLANNING (Completed) Service provider: Sylvie Slaughter [place] provider: Jay Negron DDS D1330 - ORAL HYGIENE INSTRUCTIONS (Completed) Service provider: Sylvie Slaughter Billing provider: Jay Negron DDS Instruments Used: Ultrasonic Scalers Fluoride: N/A Oral Cancer Screening: No lesions Head/Neck Exam: No Lesions Calculus: Heavy and Generalized Plaque: very Heavy and Generalized Stain: discolored Bleeding: Heavy on mandibular teeth Gingiva: Perio Charting Completed, Bleeding on probing, Edematous, and Erythematous on mandibular gingiva. OH: Poor, needs improvement. Perio Chart: Completed: Pockets for 2 .. To 6 mm in depths with acute inflammation and heavy bleeding. Requesting 2 quads SRP LL, LR quads Oral hygiene instructions provided to patient including brushing technique and flossing. Recommendations: Madison two times daily, modified hernandez technique, Floss daily, Electric toothbrush, Soft bristle toothbrush, Madison Tongue, Anti-sensitivity toothpaste, OTC Listerine if bleeding duringoral hygiene at home, use floss hot walker under LL fixed bridge. Recall Frequency: SRP if approved. NV: Dr. Negron for restorations and when PT finds her Maxillary Partial to call to make appoint foradding the teeth. Hygienist: Sylvie Slaughter RDH * Jay Negron DDS - 02/18/2024 11:00 AM EDT Dental procedures in this visit D1110 - PROPHYLAXIS - ADULT (Completed) Service provider: Sylvie Slaughter Billing provider: Jay Negron DDS D0210 - INTRAORAL - COMPLETE SERIES OF RADIOGRAPHIC IMAGES (Completed) Service provider: Sylvie Slaughter Billing provider: Jay Negron DDS D9450 - CASE PRESENTATION, DETAILED AND EXTENSIVE TREATMENT PLANNING (Completed) Service provider: Sylvie Slaughter Billing provider: Jay Negron DDS D1330 - ORAL HYGIENE INSTRUCTIONS (Completed) Service provider: Sylvie Slaughter Billing provider: Jay Negron DDS D0120 - PERIODIC ORAL EVALUATION - ESTABLISHED PATIENT (Completed) Service provider: Jay Negron DDS Billing provider: aJy Negron DDS Patient ID: Ellen Brizuela is a 33 y.o. female. 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 Confirmed via patient's chart, intraorally and by radiographs. Chief Librarian Music Department: not applicable No chief complaint on file. Medical Hx: Vitals: Blood pressure 104/64. Past Medical History: Diagnosis Date Medications: Outpatient Encounter Medications as of 02/18/2024 Medication Sig Dispense Refill Sodium Fluoride (PreviDent 5000 Booster Plus) 1.1 % paste Apply 1 application to teeth 2 times daily. (Patient not taking: Reported on 02/18/2024) 112 g 3 No facility-administered encounter medications on file as of 02/18/2024. Objective HPI Asymptomatic Head and Neck Exam: OCS performed, no lesion no mass noticed. Details: Skin WNL OCS: negative Dental Exam As charted Carious lesions Missing RPDs Reference tooth chart for additional findings. Oral Cancer Risk: Low Risk Oral Hygiene Instructions: Madison two times daily, modified hernandez technique, Floss daily, Electric toothbrush, Soft bristle toothbrush, Madison Tongue Caries Risk Assessment: Medium- one risk factor Assessment/Plan DIGNA X Rays prophy jessi. Patient tolerated procedure well, all questions answered and expressed understanding. Dismissed in good condition. NV: Res Crematory Operator: Sylvie Slaughter RDH Dentist: Jay Negron DDS documented in this encounter Plan of Treatment Scheduled Orders Name Type Priority Associated Diagnoses Orde r Schedule 3 3 ADD TOOTH TO EXISTING PARTIAL DENTURE Dental Routine 1 Occur rences starting 02/18/2024 4 4 ADD TOOTH TO EXISTING PARTIAL DENTURE Dental Routine 1 Occur rences starting 02/18/2024 6 6 ADD TOOTH TO EXISTING PARTIAL DENTURE Dental Routine 1 Occur rences starting 02/18/2024 11 11 ADD TOOTH TO EXISTING PARTIAL DENTURE Dental Routine 1 Occur rences starting 02/18/2024 12 12 ADD TOOTH TO EXISTING PARTIAL DENTURE Dental Routine 1 Occur rences starting 02/18/2024 LL LL PERIODONTAL SCALING AND ROOT PLANING - 4 OR MORE TEETH PER QUADRANT Dental Routine [address] arting 02/18/2024 LR LR PERIODONTAL SCALING AND ROOT PLANING - 4 OR MORE TEETH PER QUADRANT Dental Routine [address] arting 02/18/2024 documented as of this encounter Procedures Procedure Name Priority Date/Time Associated Diagnosis Comments PROPHYLAXIS - ADULT Routine 02/18/2024 1 1:00 AM EDT Dental calculus Periodontal disease Acute gingival inflammation Gingival bleeding PERIODIC ORAL EVALUATION - ESTABLISHED PATIENT Routine 02/18/2024 11:00 AM EDT ORAL HYGIENE INSTRUCTIONS Routine 2023 11:00 AM EDT Tipped teeth Decalcification of tooth Dental calculus Periodontal disease Acute gingival inflammation Gingival bleeding Dental caries INTRAORAL - COMPLETE SERIES OF RADIOGRAPHIC IMAGES Routine 02/18/2024 11:00 AM EDT Tipped teeth Decalcification of tooth Dental calculus Periodontal disease Acute gingival inflammation Gingival bleeding Dental caries COMPREHENSIVE PERIODONTAL EVALUATION - NEW OR ESTABLISHED PATIENT Routine 02/18/2024 11:00 AM EDT CASE PRESENTATION, DETAILED AND EXTENSIVE TREATMENT PLANNING Routine 02/18/2024 11:00 AM EDT Tipped teeth Decalcification of tooth Dental calculus Periodontal disease Acute gingival inflammation Gingival bleeding Dental caries documented in this encounter Visit Diagnoses Diagnosis Tipped teeth- Primary Horizontal displacement of teeth Decalcification of tooth Unspecified dental caries Dental calculus Accretions on teeth Periodontal disease Unspecified gingival and periodontal disease Acute gingival inflammation Acute gingivitis, plaque induced Gingival bleeding Other specified periodontal diseases Dental caries Unspecified dental caries documented in this encounter
--- OUTSIDE RECORDS SUMMARY | 2024-08-27 08:54 | XMS_ITS | Clinical Summary ---
Author Organization [facility] Address [address] [place] [address] [address] [place] [address] Care Team Providers Care Welfare Officer Name Role Phone Unavailable Primary Care Provider Unavailabl e Allergies Active Allergy Reactions Criticality Noted Date Comments Shellfish Allergy 05/02/2023 [place] Extract 05/02/2023 Medications Sodium Fluoride (PreviDent 5000 [...] Periodontal disease Acute gingival inflammation Gingival bleeding INTRAORAL - COMPLETE SERIES OF RADIOGRAPHIC IMAGES Routine 02/18/2024 11:00 AM EDT Tipped teeth Decalcification of tooth Dental calculus Periodontal disease Acute gingival inflammation Gingival bleeding Dental caries PERIODIC ORAL EVALUATION - ESTABLISHED PATIENT Routine 02/18/2024 11:00 AM EDT from Last 3 Months or Most Recently Relevant to Health Maintenance Insurance [facility] MEDICAID STAND ADULT
--- OUTSIDE RECORDS SUMMARY | 2024-08-27 08:54 | XMS_ITS | Encounter Summary ---
Author Organization [employer] Address [address] [place] [address] [address] [place] [address] Care Team Providers Care Bilingual Executive Assistant Name Role Phone Unavailable Primary Care Provider Unavailabl e Reason for Visit * Reason Onset Date Comments crown broke off 09/10/2023 Encounter Details Date Type Department Care Team (Late st Contact Info) Description 09/10/2023 Telephone [facility] [address] [place] [address] Shayy Rush DDS [address] [place] [address] crown broke off Social History Tobacco Use [...] urgent? If so can you coordinate with senior front end developer for scheduling. documented in this encounter Plan of Treatment Not on file documented as of this encounter Visit Diagnoses Not on filedocumented in this encounter
== END 2024-08-27 09:53 | disposition home or self-care (01) ==
PROVIDERS: PCP Internal Medicine
DX: R20.0 Anesthesia of skin (principal); F41.9 Anxiety disorder, unspecified; G47.10 Hypersomnia, unspecified; G47.00 Insomnia, unspecified

== ENCOUNTER → 2024-08-27 08:36 | Outpatient (BNVA) | payer OTHER, SELFPAY | PROVIDERS: PCP Internal Medicine | DX: R20.0 Anesthesia of skin (principal); F41.9 Anxiety disorder, unspecified; G47.00 Insomnia, unspecified; G47.10 Hypersomnia, unspecified | CPT/HCPCS: 99212 ==

== ENCOUNTER → 2024-10-04 10:45 | Outpatient (REF) | payer OTHER, SELFPAY ==
--- OUTSIDE RECORDS SUMMARY | 2024-10-04 12:09 | XMS_ITS | Encounter Summary ---
Author Organization [facility] Address [address] [place] [address] [address] [place] [address] Care Team Providers Care Underwriting Director Name Role Phone Unavailable Primary Care Provider Unavailabl e Reason for Visit * Reason Onset Date Comments crown broke off 09/10/2023 Encounter Details Date Type Department Care Team (Late st Contact Info) Description 09/10/2023 Telephone [facility] [address] [place] [address] Shayy Rush DDS [address] [place] [address] crown broke off Social History Tobacco Use [...] If so can you coordinate with front desk officer for scheduling. documented in this encounter Plan of Treatment Upcoming Encounters Date Type Department Care Team (Late st Contact Info) Description 10/20/2024 9:00 AM EDT Office Visit [facility] [address] [place] [address] Sylvie Slaughter [address] [place] [address] documented as of this encounter Visit Diagnoses Not on filedocumented in this encounter
--- OUTSIDE RECORDS SUMMARY | 2024-10-04 12:09 | XMS_ITS | Clinical Summary ---
Author Organization [employer] [facility] Address [address] [place] [address] [address] [place] [address] Care Team Providers Care Manufacturing Project Manager Name Role Phone Unavailable Primary Care Provider Unavailabl e Allergies Active Allergy Reactions Criticality Noted Date Comments Shellfish Allergy 05/02/2023 [place] Extract 05/02/2023 Medications Sodium Fluoride (PreviDent 5000 [...] Mass Index - - Plan of Treatment Upcoming Encounters Date Type Department Care Team (Late st Contact Info) Description 10/20/2024 9:00 AM EDT Office Visit [facility] ADULT [facility] [address] [place] [address] Sylvie Slaughter [address] [place] [address] Health Maintenance Due Date Last Done Comments [...] Most Recently Relevant to Health Maintenance Insurance [facility] MEDICAID STAND ADULT
== END ==
LOC: HO.SL 10:45
PROVIDERS: PCP Internal Medicine
DX: G47.10 Hypersomnia, unspecified (principal)
CPT/HCPCS: 95806

== ENCOUNTER → 2024-10-04 10:58 | Outpatient (BNV) | payer OTHER, SELFPAY | PROVIDERS: PCP Internal Medicine; Visit Provider Internal Medicine | DX: G47.10 Hypersomnia, unspecified (principal) | CPT/HCPCS: 95806 ==

== ENCOUNTER 2024-12-03 17:02 | Emergency (ER) | payer OTHER, SELFPAY ==
--- NOTE | ~2024-12-03 | XR_ITS ---
CLINICAL HISTORY: dyspnea, cough 1 view chest x-ray Comparison: None Findings: The lungs are clear. Normal size heart. No acute fracture. IMPRESSION: 1. No acute findings. This document has been electronically signed by: Sabi Avila MD on 12/03/2024 18:34:24
[2024-12-03 17:12] VITALS: BP 121/88; BP 138/72; PULSE 100; PULSE 110; RESP 20; TEMP 36.9; O2SAT 98; O2SAT 99; BMI 25.5
[2024-12-03 17:19] VITALS: BP 129/80; PULSE 105; RESP 18; O2SAT 99
--- OUTSIDE RECORDS SUMMARY | 2024-12-03 17:44 | XMS_ITS | Clinical Summary ---
Author Organization [employer] Address [address] [place] [address] [address] [place] [address] Care Team Providers Care Gis Coordinator Name Role Phone Unavailable Primary Care Provider Unavailabl e Allergies Active Allergy Reactions Criticality Noted Date Comments Shellfish Allergy 05/02/2023 [place] Extract 05/02/2023 Medications Sodium Fluoride (PreviDent 5000 [...] 1990 Lipid Panel 1990 SDOH Screening 1990 Disability Screening 1990 Alcohol/Substance Use Screening 2002 Family [...] 2020 HPV/Cotest 2020 COVID-19 Vaccine (1 - season) 2024 Influenza Vaccine (#1) 2024 Dental [...] patient's age to complete this topic Meningococcal B Vaccine Aged Out No l onger eligible based on patient's age to complete [...] Most Recently Relevant to Health Maintenance Insurance [facility] MEDICAID STAND ADULT
[2024-12-03] MEDS: predniSONE 20 MG TABLET 60 MG PO (17:58)
--- NOTE | 2024-12-03 17:59 | ED.GENADULT ---
HPI - General Adult General Chief complaint: General Medical Stated complaint: asthma exacerbation Time Seen by Provider: 12/03/24 17:20 Source: patient, EMS and old records reviewed Mode of arrival: EMS Limitations: no limitations History of Present Illness ED Provider: XIMENA ANDRE narrative: 34 yo female with PMH of asthma who has only rescue inhaler because her asthma isn't really bad. Her kids have had a cold. She notes a day of URI and dyspnea with wheezing. She tried 2 puffs on her INH with no improvement. Patient denies cp, has some relief with EMS neb. She has not had a fever. She notes it is usually well controlled but she has been sick. MD complaint: asthma Onset (ago): day(s) (few) Radiation: non-radiation Severity: moderate Relieving factors: medication Exacerbating factors: movement Associated symptoms: other (cough, runny nose) Related Data Previous Rx's ?Medication ?Instructions ?Recorded Grab bar #1 ea 08/25/24 Shower Chair #1 ea 08/25/24 walker #1 ea 08/25/24 gabapentin 100 mg capsule 100 mg PO BID PRN Neuropathic pain 09/07/24 30 days #60 caps quetiapine 25 mg tablet 25 mg PO BEDTIME #30 tabs 10/29/24 albuterol sulfate 1.25 mg/3 mL 1.25 mg (3 mL) inhalation QID #75 12/03/24 solution for nebulization mL nebulizer #1 ea 12/03/24 prednisone 20 mg tablet 40 mg (2 x 20 mg) PO DAILY 4 days 12/03/24 #8 tabs Allergies Allergy/AdvReac Type Severity Reaction Status Date / Time hydroxyprogesterone Allergy Severe ANAPHYLAXIS Verified 12/03/24 17:15 [From MOISÉS] strawberry [STRAWBERRY] Allergy Unknown ANAPHYLAXIS Verified 12/03/24 17:15 SEAFOOD Allergy Unknown SHORTNESS Uncoded 08/27/24 08:40 OF BREATH seafood Allergy Unknown anaphylaxis Uncoded 08/27/24 08:40 shellfish Allergy Unknown anaphylaxis Uncoded 08/27/24 08:40 strawberries Allergy Unknown swelling Uncoded 08/27/24 08:40 of lips and tongue Review of Systems Review of Systems: Constitutional : No Fever, No Chills ENT/Mouth : No Hoarseness, No sore throat, No Rhinorrhea Eyes: No Redness, No Discharge, No Vision Changes Cardiovascular : No Chest Pain, positive SOB, positive Dyspnea on Exertion, No Edema Respiratory : positive Cough, No Sputum, positive Wheezing, Gastrointestinal : No Nausea, No Vomiting, No Diarrhea, No abdominal Pain Genitourinary : No Dysuria, No Hematuria Musculoskeletal : No joint pain, No Myalgias Skin : No rash Neuro : No Weakness, No Numbness, No Headache Psych : No anxiety, depression All other systems reviewed and are negative [facility] Past Medical History Medical History Cervical cancer screening Dehydration during Abdominal pain affecting PTSD (post-traumatic stress disorder) Renal calculi Asthma Surgical History History of salpingostomy History of appendectomy [place] teeth extracted Family History Family History Father Anemia Paternal Grandmother Cancer AIDS Son Age: 7 Autism Son Age: 5 Clubbed foot Other Mental health disorder Social History Social History Household Members: Children Housing: Apartment Are you a primary health care assistant to a significant other at home: No Do you presently have visiting nurse or other home services: No Alcohol intake: never Patient Tobacco Use Status: Current everyday Tobacco user Tobacco use type: Cigarette Cigarette Packs Per Day: 0.25 Cigarettes Per Day: 2 Years Smoked: 5 yrs Smoked in Last 30 Days: Yes e-Cigarette/Vaping Use: Never Used Second Hand Smoke Exposure: Yes Substance Use Type: Marijuana Trauma History: PTSD (19 year old in her arms) Advance Directives: No Advance Directives Information Provided: No service: No Current occupational status: unemployed 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 Oriented X3. No acute distress. Eyes: Pupils equal, round and reactive to light. ENT: Pharynx normal. Neck: Normal inspection. Neck supple. CVS: tachyheart rate and rhythm. Pulses normal. Respiratory: No respiratory distress. Breath sounds faint end exp wheezes posterior Abdomen: Soft and nontender. Skin: Skin warm and dry. Normal skin color. Normal skin turgor. Extremities: No lower extremity edema. No calf ttp Neuro: Oriented X 3. No motor deficit. No sensory deficit. CN2-12 intact Medications Administered Discontinued Medications Generic Name Dose Route Start Last Admin Trade Name Freq PRN Reason Stop Dose Admin Prednisone 60 mg 12/03/24 17:26 12/03/24 17:58 Prednisone 20 Mg Tablet PO 12/03/24 17:27 60 mg ONCE ONE Administration Medical Decision Making Medical Decision Making [facility] Narrative: 34 yo female with PMH of neuropathy and asthma but has been around her kids with URI and she now has URI symptoms which triggered her asthma she has been given neb with improvement will obtain viral panel, CXR and start on prednisone. She was also handed a rescue inhaler plan to get neb machine Friday per patient Differential Diagnosis Differential Diagnoses: The differential diagnosis associated with the presentation includes URI, asthma Admission/Observation Consideration of admission/observation: Escalation of care including admission/observation considered clear lungs on DC and no hypoxia stable for DC Lab Data [facility] Lab Attestation statement: I reviewed the patient's lab results. Labs: Lab Results 12/03/24 Range/Units 17:47 Influenza Type A (PCR) NEGATIVE (Negative) Influenza Type B (PCR) NEGATIVE (Negative) RSV RNA Qual (PCR) NEGATIVE (Negative) SARS-CoV-2 RNA (RT-PCR) NEGATIVE (Negative) Independent Interpretation I performed an independent interpretation of an: Plain X-Ray (normal ) Radiology Impression Discussion of test interpretation with radiology: I have reviewed the radiologist's reading. Independent Historian Clinical information obtained from an independent historian. History obtained from or confirmed by: EMS External Record Review External record reviewed: Outpatient record Prescription Management I considered prescription management with: Other Discharge Plan Discharge Clinical Impression: Asthma Qualifiers: Asthma severity: mild Asthma persistence: persistent Asthma complication type: with acute exacerbation Qualified Code(s): J45.31 - Mild persistent asthma with (acute) exacerbation Patient Disposition: Home, Self-Care Instructions: Asthma (ED) Additional Instructions: you can take 2 to 4 puffs on rescue inhaler every 4 hours for wheezing your chest xray was normal you are negative for covid, flu, rsv next dose of prednisone is tomorrow return for any worsening symptoms or concerns stay hydrated when using albuterol drink 40 to 60 ounces of water a day Prescriptions: New prednisone 20 mg tablet 40 mg PO DAILY 4 Days Qty: 8 0RF No Action (DME) Grab bar Misc See Rx Instructions .Route Qty: 1 0RF Rx Instructions: As directed (DME) Shower Chair Misc See Rx Instructions .Route Qty: 1 0RF Rx Instructions: As directed (DME) walker Misc See Rx Instructions .Route Qty: 1 0RF Rx Instructions: As directed gabapentin 100 mg capsule 100 mg PO BID PRN (Reason: Neuropathic pain) 30 Days Qty: 60 0RF quetiapine 25 mg tablet 25 mg PO BEDTIME Qty: 30 1RF albuterol sulfate 1.25 mg/3 mL solution for nebulization 1.25 mg inhalation QID Qty: 75 0RF (DME) nebulizer See Rx Instructions .Route .MEDSUPPLY Qty: 1 0RF Rx Instructions: As directed Print Language: Maldivian
[2024-12-03 18:00] VITALS: BP 129/86; PULSE 101; RESP 15; O2SAT 100
--- NOTE | 2024-12-03 18:04 | PC.NURSE ---
Addendum entered by Tiff Cabrera RN 12/03/24 18:05: Patient is a 34 yo old female who presents with increased sob via EMS. Ran out of her albuterol. Lungs diminished with faint exp wheezes. Respirations even and non-labored. Abdomen soft, non-tender with positive bowel sounds. Positive pedal pulses with no edema noted. Original Note: Medical History Cervical cancer screening Dehydration during Abdominal pain affecting PTSD (post-traumatic stress disorder) Renal calculi Asthma
[2024-12-03 18:35] LABS: Influenza A PCR NEGATIVE (Negative); Influenza B PCR NEGATIVE (Negative); Resp Syncy Virus RNA Qual PCR NEGATIVE (Negative); SARS COV2 PCR INHOUSE NEGATIVE (Negative)
[2024-12-03] MEDS: Albuterol Sulfate 90 MCG 8 GM INHALER 2 PUFF INHALE (19:03)
[2024-12-03 19:07] VITALS: BP 129/86; PULSE 101; RESP 15; TEMP 36.7; O2SAT 100
== END 2024-12-03 19:08 | disposition home or self-care (01) ==
PROVIDERS: Emergency Provider Emergency Medicine; PCP Internal Medicine
DX: J45.31 Mild persistent asthma with (acute) exacerbation (principal); R06.00 Dyspnea, unspecified; Z03.818 Encounter for observation for suspected exposure to other biological agents ruled out
CPT/HCPCS: 0241U; 71045; 99284

== ENCOUNTER → 2024-12-03 17:26 | Outpatient (BNV) | payer OTHER, SELFPAY | PROVIDERS: Emergency Provider Emergency Medicine; PCP Internal Medicine; Visit Provider Radiology Diagnostic Radiology | DX: R06.00 Dyspnea, unspecified (principal); R05.9 Cough, unspecified | CPT/HCPCS: 71045 ==

== ENCOUNTER 2024-12-28 13:42 | Outpatient (AMB) | payer OTHER, SELFPAY ==
--- OUTSIDE RECORDS SUMMARY | 2024-12-24 13:00 | XMS_ITS | Encounter Summary ---
Author Organization [employer] Address [address] [place] [address] Care Team Providers Care Hot Mix Operator Name Role Phone Unavailable Primary Care Provider Unavailabl e Reason for Visit * Reason Comments Dental Exam Encounter Details Date Type Department Care Team (Late st Contact Info) Description 12/24/2024 1:00 PM EDT Office Visit [facility] [address] [place] [address] Chi Ocasio DMD [address], [place] [id number] Social History Tobacco Use Types Packs/Day Years [...] Sign Reading Time Taken Comments Blood Pressure 124/80 12/24/2024 1:03 PM EDT Pulse - - Temperature - - Respiratory Rate - - Oxygen Saturation - - Inhaled Oxygen Concentration - - Weight - - Height - - Body Mass Index - - documented in this encounter Progress Notes * Chi Ocasio DMD - 12/24/2024 1:00 PM EDT C/C: missing crown #7 with sharp edge and it irritates the gum for a while. [place] #7 was done less than 5 years ago I.O.E: missing crown #7, broken core structure #7 with sharp lingual post, no sensitive to percussion of #7 E.O.E: no significant findings (NSF) Radiographic: missing crown#7 with broken core structure #7 Dx: missing crown #7, broken core structure #7 Tx: Pt does not want to have a new crown#7 and she would like to have exo NV: recall exam, x-rays, prophy Bengali the sharp edge at lingual surface with elmer bur. Pt feels better Artemio documented in this encounter Plan of Treatment Scheduled Orders Name Type Priority Associated Diagnoses Orde r Schedule PROPHYLAXIS - ADULT Dental Routine 1 Occ urrences starting 12/24/2024 COMPREHENSIVE ORAL EVALUATION - NEW OR ESTABLISHED PATIENT Dental Routine 1 Occurrence s starting 12/24/2024 documented as of this encounter Procedures Procedure Name Priority Date/Time Associated Diagnosis Comments PALLIATIVE (EMERGENCY) TREATMENT OF DENTAL PAIN - MINOR PROCEDURE Routine 12/24/2024 1:00 PM EDT INTRAORAL - PERIAPICAL FIRST RADIOGRAPHIC IMAGE Routine 12/24/2024 1:00 PM EDT CASE PRESENTATION, DETAILED AND EXTENSIVE TREATMENT PLANNING Routine 12/24/2024 1:00 PM EDT documented in this encounter Visit Diagnoses Not on filedocumented in this encounter
--- NOTE | 2024-12-28 13:58 | MHC.PC.OV ---
Vital Signs 12/28/24 14:00 Height 5 ft 1 in Weight 126 lb 6 oz BMI 23.9 BP 120/66 Blood Pressure Location Lt brachial Position Sitting Pulse 112 H Pulse Source Pulse Oximeter Temp 97.3 F Temp Source Temporal Artery Scan Pulse Oximetry (%) 96 Oxygen Delivery Method Room Air Intake Visit Reasons: follow up Intake Note: Patient is here to follow up on Asthma, DANIA positive. Three Dimensional Map Modeler Required: No Forensics Analyst: Not Required per policy Accompanied by: Self / Same As Patient Allergies hydroxyprogesterone (From MOISÉS) Allergy (Severe, Verified 12/28/24 14:00) ANAPHYLAXIS strawberry (STRAWBERRY) Allergy (Unknown, Verified 12/28/24 14:00) ANAPHYLAXIS SEAFOOD Allergy (Unknown, Uncoded 12/28/24 14:00) SHORTNESS OF BREATH seafood Allergy (Unknown, Uncoded 12/28/24 14:00) anaphylaxis shellfish Allergy (Unknown, Uncoded 12/28/24 14:00) anaphylaxis strawberries Allergy (Unknown, Uncoded 12/28/24 14:00) swelling of lips and tongue Medication List - Last Reconciled 12/28/24 by Cassie Vines PA-C albuterol sulfate 1.25 mg (3 mL) inhalation QID gabapentin 100 mg PO BID PRN 30 days Grab bar As directed [nebulizer As directed] prednisone 40 mg (2 x 20 mg) PO DAILY 4 days quetiapine 25 mg PO BEDTIME Shower Chair As directed walker As directed Tobacco use date assessed: 12/28/24 Dental Screening Dental Screen Date: 08/27/24 HPI follow up HPI Details 34-year-old female with past medical history of asthma, generalized anxiety disorder and tobacco abuse last seen 08/2024 coming in for follow up. In review of the notes, patient was seen in [facility] ED for asthma exacerbation. Presenting with asthma exacerbation and knee pain. The patient reports that her asthma worsens seasonally, with the current season being particularly severe due to humidity. She has been using albuterol more than three times a day, including at night, indicating poor control of her asthma. Previous attempts to contact her physician were misdirected to another doctor, delaying appropriate management. The patient experiences neuropathy, with symptoms including knees feeling like jello and discoloration, which may be related to circulation issues. She has undergone neurological testing, which confirmed neuropathy, but has not yet seen a neurologist for follow-up. [facility] Medical History Cervical cancer screening Dehydration during Abdominal pain affecting PTSD (post-traumatic stress disorder) Renal calculi Asthma Surgical History History of salpingostomy History of appendectomy [place] teeth extracted Family History Father Anemia Paternal Grandmother Cancer AIDS Son Age: 7 Autism Son Age: 5 Clubbed foot Other Mental health disorder Social History Household Members: Children Both parents involved: No Housing: Apartment Are you a primary transitions rn care coordinator to a significant other at home: No Do you presently have visiting nurse or other home services: No 75 years or older and lives alone: No Alcohol intake: never Patient Tobacco Use Status: Current everyday Tobacco user Tobacco use type: Cigarette Cigarette Packs Per Day: 0.25 Cigarettes Per Day: 2 Years Smoked: 5 yrs e-Cigarette/Vaping Use: Never Used Second Hand Smoke Exposure: Yes Substance Use Type: Marijuana Trauma History: PTSD (19 year old in her arms) service: No Current occupational status: unemployed 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 Kike Hines, Allie Deng, Jitendra Payne and colleagues, with an educational angelica from [employer]. Review of Systems Const Reports body aches, Denies chills, Denies fever(s), Denies headache(s) and Denies poor appetite Eyes Reports no additional complaints ENT Denies dizziness and Denies headache(s) Card Denies chest pain, Denies edema and Denies dyspnea Resp Denies dyspnea GI Denies abdominal pain, Denies nausea and Denies vomiting Reports no additional complaints Musc Reports no additional complaints and Denies abnormal gait Skin/Breast Reports system reviewed and no additional complaints, except as documented Neuro Denies abnormal gait, Denies dizziness and Denies headache(s) Psych Reports no additional complaints Physical exam (Primary Care) Vital Signs: Last Vital Signs Temp 97.3 F 12/28/24 14:00 Pulse 112 H 12/28/24 14:00 BP 120/66 12/28/24 14:00 Pulse Ox 96 12/28/24 14:00 Oxygen Delivery Method Room Air 12/28/24 14:00 BMI result Body Mass Index 23.9 Tobacco/Smoking Status: Tobacco use Status Tobacco use date assessed 12/28/24 12/28/24 14:05 Patient Tobacco Use Status Current everyday Tobacco 12/28/24 14:05 Tobacco use type Cigarette 12/28/24 14:05 e-Cigarette/Vaping Use Never Used 12/28/24 14:05 Thrive Assessment: Date of Thrive Assessment Date Thrive assessed 08/27/24 12/28/24 14:05 Const General: cooperative, healthy appearing, comfortable and no acute distress Orientation/consciousness: patient oriented x3 HENMT Head: Yes normocephalic Ears: hearing grossly normal bilaterally General nose exam: Normal external nose present Eyes General: appearance normal, both eyes and all related structures Conjunctivae: conjunctivae normal Neck Neck: Yes full ROM and Yes no lymphadenopathy Resp Effort & Inspection: normal respiratory effort Auscultation: clear to auscultation bilaterally, no crackles, no rales, no rhonchi and no wheezes Cardio Rate: regular rate Rhythm: regular rhythm Skin General skin exam: no rashes or lesions noted Neuro General: patient oriented x3 Gait exam (Neuro): Normal gait present Extrem Other: No discoloration, swelling, pain of bilateral lower extremities General: Yes normal to inspection, Yes full ROM and No edema Psych Affect: normal affect Attitude: cooperative Insight: Good insight present (Psych) Judgement: Good judgement present (Psych) Coding Level of Care Code Est Pt Level 4 (76919) Diagnoses Screening examination for STI Z11.3 Neuropathy G62.9 Lower extremity numbness R20.0 Asthma J45.31 Asthma complication type: with acute exacerbation Asthma persistence: persistent Asthma severity: mild Assessment & Plan Assessment & Plan (1) Screening examination for STI: Code(s): Z11.3 - Encounter for screening for infections with a predominantly sexual mode of transmission Category: Medical Plan: Blood work ordered (2) Neuropathy: Code(s): G62.9 - Polyneuropathy, unspecified Category: Medical Plan: Patient having bilateral knee weakness which she believes to be related to her neuropathy. I did refer her to a neurologist several months ago and she is not tender to appointment. Information was given to the patient to schedule an appointment. Previous imaging studies have been negative. (3) Lower extremity numbness: Code(s): R20.0 - Anesthesia of skin Category: Medical Plan: See above (4) Asthma: Code(s): J45.909 - Unspecified asthma, uncomplicated Category: Medical Qualifiers: Asthma complication type: with acute exacerbation Asthma persistence: persistent Asthma severity: mild Qualified Code(s): J45.31 - Mild persistent asthma with (acute) exacerbation Plan: Asthma is not well controlled on albuterol alone. Plan to add Symbicort due daily regimen for better control. Plan to follow up in 2 months to review of symptoms. Advised patient to reach out if spreading does not improve. Avoid triggers such as humidity, allergies and smoking. Plan The patient will be started on Symbicort, a combination inhaler, to better control her asthma symptoms. This medication is to be used twice daily, and the patient is advised to rinse her mouth after each use to prevent oral thrush. The goal is to reduce the frequency of albuterol use to once a week, indicating better asthma control. If symptoms persist, the dosage of Symbicort may be adjusted. For the neuropathy and associated knee symptoms, the patient will be referred to a neurologist for further evaluation and management. A prescription for a cane has been provided to assist with mobility issues. The patient is advised to document any changes in knee discoloration and to send images via the patient portal for further assessment. Regarding the insomnia, the patient is encouraged to follow up on the sleep study results, which are currently pending. The care team will investigate the delay in receiving these results. This note was constructed using voice recognition software. While every effort has been made to ensure accuracy and sugar cane farm manager, still areas may have been included sometimes these areas may affect the content or meeting of the given symptoms. Total time spent caring for the patient today was 20 minutes. This includes time spent before the visit reviewing the chart, time spent during the visit, and time spent after the visit and documentation. Patient was informed and verbally consented to the use of an ambient scribe for clinic note documentation during this visit. Orders: Orders HIV Ab/Ag Today Z11.3 - Encounter for screening for infections with a predominantly sexual mode of transmission Hepatitis B,C Profile Today R79.89 - Other specified abnormal findings of blood chemistry, Z11.3 - Encounter for screening for infections with a predominantly sexual mode of transmission CT NG by PCR Today Z00.00 - Encounter for general adult medical examination without abnormal findings, Z11.3 - Encounter for screening for infections with a predominantly sexual mode of transmission RPR Monitor reflex titer Today Z11.3 - Encounter for screening for infections with a predominantly sexual mode of transmission Medications: New [cane] As directed 1 ea 0RF M25.561 - Pain in right knee, M25.562 - Pain in left knee, R20.0 - Anesthesia of skin budesonide-formoterol 80-4.5 mcg/actuation (Symbicort) 1 inh inhalation BID 10.2 grams 0RF
[2024-12-28 14:00] VITALS: BP 120/66; PULSE 112; TEMP 36.3; O2SAT 96; BMI 23.9
== END 2024-12-28 15:32 | disposition home or self-care (01) ==
LOC: HO.HMCH 13:43
PROVIDERS: PCP Internal Medicine
DX: Z11.3 Encounter for screening for infections with a predominantly sexual mode of transmission (principal); G62.9 Polyneuropathy, unspecified; R20.0 Anesthesia of skin; J45.31 Mild persistent asthma with (acute) exacerbation

== ENCOUNTER 2024-12-28 13:42 | Outpatient (REF) | payer OTHER, SELFPAY ==
[2024-12-29 08:20] LABS: HBS Num1 13.34 mIU/mL (0-7.99); HBc Num1 0.07 S/CO (0.00-0.79); HBsAGNum1 0.39 S/CO (0.00-0.99); HIV AB/AG Nonreactive (Nonreactive); HIV Num 1 0.07 S/CO (0.00-0.99); Hepatitis B Core Antibody Nonreactive (Nonreactive); Hepatitis B Surface Antigen Negative (Negative); ~HepC Num1 0.12 S/CO (0.00-0.79); ~Hepatitis B Surface Antibody REACTIVE (Nonreactive); ~Hepatitis C Antibody Nonreactive (Nonreactive)
[2024-12-30 10:09] LABS: RPR Rapid Plasma Reagin NON-REACTIVE (NON-REACTIVE)
== END 2024-12-28 13:43 | disposition home or self-care (01) ==
LOC: HO.LAB 13:42
DX: Z11.3 Encounter for screening for infections with a predominantly sexual mode of transmission (principal); Z11.4 Encounter for screening for human immunodeficiency virus [HIV]; R79.89 Other specified abnormal findings of blood chemistry; G62.9 Polyneuropathy, unspecified; R20.0 Anesthesia of skin; J45.31 Mild persistent asthma with (acute) exacerbation
CPT/HCPCS: 86592; 86704; 86706; 86803; 87340; 87389; 99212

== ENCOUNTER 2025-05-21 18:33 | Emergency (ER) | payer OTHER, SELFPAY ==
--- NOTE | ~2025-05-21 | XR_ITS ---
CLINICAL HISTORY: chest pain 2 view chest x-ray Comparison: Chest x-ray from 12/03/2024 Findings: No consolidation, pneumothorax, or pleural effusion. Heart size is normal. No acute fracture. IMPRESSION: No consolidation. This document has been electronically signed by: Aroldo Blancas MD on 05/21/2025 22:27:57
--- NOTE | 2025-05-21 18:42 | ECG_ITS ---
Test Reason : CHEST PAIN Blood Pressure : */* mmHG Vent. Rate : 78 BPM Atrial Rate : 78 BPM P-R Int : 122 ms QRS Dur : 76 ms QT Int : 324 ms P-R-T Axes : 11 -1 17 degrees QTcB Int : 369 ms Normal sinus rhythm Normal ECG When compared with ECG of 16-Aug-2022 19:59, Minimal criteria for Anteroseptal infarct are no longer Present Referred By: Generic ED Physician Electronically Signed By: CORTEZ PEREZ MD
[2025-05-21 18:52] VITALS: BP 108/72; PULSE 98; O2SAT 99
[2025-05-21 18:54] VITALS: BP 105/68; PULSE 85; RESP 18; TEMP 37.1; O2SAT 98; BMI 27.3
[2025-05-21 20:14] VITALS: BP 106/61; PULSE 85; RESP 16; O2SAT 98
[2025-05-21 20:26] LABS: MANUAL DIFF FLAG NO
[2025-05-21 20:36] LABS: Hematocrit 26.4 % (37.0-47.0); Hemoglobin 8.3 g/dl (12.0-16.0); Imm Gran Abs Auto 0.02 X10*3/uL (0.00-0.03); Imm Gran Pct Auto 0.3 % (0.0-0.4); Lymphocytes Absolute Auto 2.6 X10*3/uL (1.2-4.9); Mean Corpuscular HGB Conc 31.4 g/dl (31.0-35.0); Mean Corpuscular Hemoglobin 19.8 pg (27.0-33.0); NRBC Abs Auto 0.000 X10*3/uL (0.0-0.012); NRBC Pct Auto 0.0 /100WBC (0.0-0.2); Platelet Count 398 X10*3/uL (160-400); Red Blood Count 4.20 X10*6/uL (4.20-5.50); White Blood Count 6.9 X10*3/uL (4.8-10.8)
[2025-05-21 20:38] LABS: Mean Corpuscular Volume 62.9 fL (80.0-98.0)
--- NOTE | 2025-05-21 20:50 | ED.CHESTPAIN ---
HPI - Chest Pain General Chief Complaint: Chest Pain Stated Complaint: CP 02/13 hx of nueropathy, stabbing pain in back 9 Time Seen by Provider: 05/21/25 20:49 Source: patient Mode of arrival: ambulatory Limitations: no limitations History of Present Illness ED Provider: Dr. Sherman HPI narrative: 34-year-old female history of unknown autoimmune disease, asthma, anxiety, iron-deficiency anemia presented hospital today for evaluation of chest pressure, increased fatigue. The pain from her back to her tailbone. Feeling dizzy. 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 She has been currently being worked up by track superintendent and neurologist for her symptoms. She stated that she does have elevated DANIA levels. However they are unsure what autoimmune disease she may have. She denies any active bleeding. She did attempt iron infusion in the past. However unable to tolerated. Related Data Previous Rx's ?Medication ?Instructions ?Recorded Grab bar #1 ea 08/25/24 Shower Chair #1 ea 08/25/24 walker #1 ea 08/25/24 gabapentin 100 mg capsule 100 mg PO BID PRN Neuropathic pain 09/07/24 30 days #60 caps prednisone 20 mg tablet 40 mg (2 x 20 mg) PO DAILY 4 days 12/03/24 #8 tabs nebulizer #1 ea 12/07/24 cane #1 ea 12/28/24 quetiapine 25 mg tablet 25 mg PO BEDTIME #30 tabs 12/30/24 budesonide-formoterol HFA 80 1 inh inhalation BID #10.2 grams 02/26/25 mcg-4.5 mcg/actuation aerosol inhaler (Symbicort) albuterol sulfate 1.25 mg/3 mL 1.25 mg (3 mL) inhalation QID #75 05/20/25 solution for nebulization mL Allergies Allergy/AdvReac Type Severity Reaction Status Date / Time hydroxyprogesterone (From Allergy Severe ANAPHYLAXIS Verified 05/21/25 18:57 MOISÉS) strawberry (STRAWBERRY) Allergy Unknown ANAPHYLAXIS Verified 05/21/25 18:57 SEAFOOD Allergy Unknown SHORTNESS Uncoded 05/21/25 18:57 OF BREATH seafood Allergy Unknown anaphylaxis Uncoded 05/21/25 18:57 shellfish Allergy Unknown anaphylaxis Uncoded 05/21/25 18:57 strawberries Allergy Unknown swelling Uncoded 05/21/25 18:57 of lips and tongue Review of Systems Review of Systems: Pertinent review of systems as mentioned in HPI. All other system otherwise negative. [facility] Past Medical History [facility] Narrative: Medical history as mentioned in HPI Medical History Cervical cancer screening Dehydration during Abdominal pain affecting PTSD (post-traumatic stress disorder) Renal calculi Asthma Surgical History History of salpingostomy History of appendectomy [place] teeth extracted Family History Family History Father Anemia Paternal Grandmother Cancer AIDS Son Age: 7 Autism Son Age: 5 Clubbed foot Other Mental health disorder Social History Social History Household Members: Children Both parents involved: No Housing: Apartment Are you a primary residential caregiver to a significant other at home: No Do you presently have visiting nurse or other home services: No 75 years or older and lives alone: No Alcohol intake: never Patient Tobacco Use Status: Current everyday Tobacco user Tobacco use type: Cigarette Cigarette Packs Per Day: 0.25 Cigarettes Per Day: 2 Years Smoked: 5 yrs e-Cigarette/Vaping Use: Never Used Second Hand Smoke Exposure: Yes Substance Use Type: Marijuana Trauma History: PTSD (19 year old in her arms) service: No Current occupational status: unemployed 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 Current occupational exposures/hazards: No Sexual orientation: Straight/Heterosexual Gender identity: Female Cognitive needs: No Hearing needs: No Vision needs: No Physical Exam Exam: Exam: General: Pleasant, no distress, interacting appropriately Head: Normacephalic, atraumatic ENT: oral mucosa moist, neck supple, no tracheal deviation Cardiovascular: regular rate, regular rhythm, no murmurs, rubbing, gallops Respiratory: CTAB, no wheeze, rales, rhonchi Gastrointestinal: Soft, non distended, non tender, non guarding Neurological: Awake and alert, no facial droop noted Skin: Warm and dry Psychiatric: Appropriate mood and thoughts Vital Signs: Vital Signs: Last Vital Signs Temp 97.9 F 05/21/25 23:07 Pulse 75 05/21/25 23:07 Resp 18 05/21/25 23:07 BP 103/69 05/21/25 23:07 Pulse Ox 100 05/21/25 23:07 O2 Del Method Room Air 05/21/25 23:07 BMI result Body Mass Index 27.3 Medications Administered Discontinued Medications Generic Name Dose Route Start Last Admin Trade Name Kelsea PRN Reason Stop Dose Admin Lactated Ringer's 1,000 mls @ 999 mls/hr 05/21/25 21:45 05/21/25 22:55 Lr IV 05/21/25 22:45 Infused .Q1H1M SHANTELLE Infusion Medical Decision Making Medical Decision Making [facility] Narrative: 34-year-old female history of iron-deficiency anemia presented hospital today for exertional weakness shortness of breath and chest pressure. EKG shows normal sinus rhythm. No signs of STEMI. Her lab work did show slight anemia 8.3. This appears to have dropped from 11.6 back in August 05 of this year. Patient has signs of microcytic anemia likely secondary to iron-deficiency. D-dimer was obtained to rule out PE. Patient's D-dimer is negative. Troponin has been negative as well. I do not think patient chest pain is from cardiac ischemia in nature. I did obtain a lactic acid to assess for any signs of tissue hypoperfusion. Lactic acid is not elevated. The patient does not have any signs of end-organ damage from her anemia. I do not think patient require emergent transfusion at this time. Encouraged the patient to follow up with her primary care doctor to further assess any option regards to her iron-deficiency anemia. Hematology referral will be given to the patient as well. Did discuss with the patient that her symptoms may be secondary to her anemia. Return precautions provided. Patient will be discharged Differential Diagnosis Differential Diagnoses: The differential diagnosis associated with the presentation includes Anemia, iron-deficiency, chest pain, ACS, PE Lab Data [facility] Lab Attestation statement: I reviewed the patient's lab results. 05/21/25 20:21 05/21/25 20:21 Labs: Lab Results 05/21/25 05/21/25 Range/Units 20:21 21:52 WBC 6.9 (4.8-10.8) X10*3/uL RBC 4.20 (4.20-5.50) X10*6/uL Hgb 8.3 L D (12.0-16.0) g/dl Hct 26.4 L D (37.0-47.0) % MCV 62.9 L (80.0-98.0) fL MCH 19.8 L (27.0-33.0) pg MCHC 31.4 (31.0-35.0) g/dl RDW 27.3 H (11.0-16.0) % Plt Count 398 (160-400) X10*3/uL MPV 9.2 L (9.4-12.3) fL Immature Gran % (Auto) 0.3 (0.0-0.4) % Neut % (Auto) 50.1 (45-73) % Lymph % (Auto) 38.5 (20-40) % [place] % (Auto) 5.0 (2-11) % Eos % (Auto) 5.5 H (0-4) % Baso % (Auto) 0.6 (0-2) % Lymph # (Auto) 2.6 (1.2-4.9) X10*3/uL [place] # (Auto) 0.3 (0.1-1.2) X10*3/uL Eos # (Auto) 0.4 (0.0-0.4) X10*3/uL Baso # (Auto) 0.0 (0.0-0.2) X10*3/uL Abs Immat Gran (auto) 0.02 (0.00-0.03) X10*3/uL Absolute Neuts (auto) 3.4 (2.0-8.3) x10*3/uL Absolute Nucleated RBC 0.000 (0.0-0.012) X10*3/uL Nucleated RBC % (auto) 0.0 (0.0-0.2) /100WBC D-Dimer High Sensitivty < 150 NG/ML Sodium 141 (135-145) mmol/L Potassium 4.3 (3.3-5.1) mmol/L Chloride 105 (96-108) mmol/L Carbon Dioxide 26 (22-29) mmol/L Anion Gap 14 (12-20) BUN 16 (9-16) mg/dL Creatinine 0.72 (0.5-1.4) mg/dL Estim Creat Clear Calc 95.4 Estimated GFR > 60 Random Glucose 96 (60-115) mg/dL Lactic Acid 1.2 (0.5-2.0) mmol/L Calcium 9.5 (8.4-10.2) mg/dL Magnesium 1.9 (1.6-2.6) mg/dL Total Bilirubin 0.3 (0.0-1.0) mg/dL AST 23 (5-31) U/L ALT 12 (0-31) U/L Alkaline Phosphatase 97 (39-117) U/L Troponin I High Sens < 2.7 (<3.5-17.0) ng/L Total Protein 7.2 (6.5-8.0) g/dL Albumin 4.2 (3.5-5.0) g/dL Beta HCG, Quant < 2 mIU/mL Ethyl Alcohol < 10 mg/dL Independent Interpretation I performed an independent interpretation of an: EKG Discharge Plan Discharge Clinical Impression: Atypical chest pain Anemia Qualifiers: Anemia type: iron deficiency Iron deficiency anemia type: inadequate dietary iron intake Qualified Code(s): D50.8 - Other iron deficiency anemias Patient Disposition: Home, Self-Care Instructions: Anemia (ED) Additional Instructions: Your Hgb level is 8.3. You have signs of microcytic anemia likely secondary to iron deficiency. DDimer is negative, EKG does not show signs of acute ischemic changes, Troponin (cardiac enzyme) is negative. You do have a drop of Hgb level from 11 to 8.3. Lactic acid is not elevated therefore I do not think you have signs of tissue HYPOperfusion. Follow up with your primary care doctor. Ask whether an outpatient infusion of blood will be beneficial or if you should follow up with a file keeper. I will send you a referral to Heme/Onc Prescriptions: No Action (DME) [facility] See [facility] Instructions .Route Qty: 1 0RF Rx Instructions: As directed (DME) Shower Chair Misc See Rx Instructions .Route Qty: 1 0RF Rx Instructions: As directed (DME) walker [facility] See Rx Instructions .Route Qty: 1 0RF Rx Instructions: As directed gabapentin 100 mg capsule 100 mg PO BID PRN (Reason: Neuropathic pain) 30 Days Qty: 60 0RF (DME) nebulizer See Rx Instructions .Route .MEDSUPPLY Qty: 1 0RF Rx Instructions: As directed quetiapine 25 mg tablet 25 mg PO BEDTIME Qty: 30 1RF budesonide-formoterol [Symbicort] 80-4.5 mcg/actuation HFA aerosol inhaler 1 inh inhalation BID Qty: 10.2 0RF albuterol sulfate 1.25 mg/3 mL solution for nebulization 1.25 mg inhalation QID Qty: 75 0RF prednisone 20 mg tablet 40 mg PO DAILY 4 Days Qty: 8 0RF (DME) cane See Rx Instructions .Route .MEDSUPPLY Qty: 1 0RF Rx Instructions: As directed [place] [facility] [place]ology [Provider Group] Interventions: ED Discharge Assessment Last Done: 05/21/25 23:07 Discharge Date/Time: 05/21/25 23:07 Print Language: Mongolian
[2025-05-21 21:00] LABS: Alanine Aminotransferase 12 U/L (0-31); Albumin Level 4.2 g/dL (3.5-5.0); Alkaline Phosphatase 97 U/L (39-117); Anion Gap 14 (12-20); Aspartate Amino Transferase 23 U/L (5-31); Blood Urea Nitrogen 16 mg/dL (9-16); Calcium 9.5 mg/dL (8.4-10.2); Carbon Dioxide 26 mmol/L (22-29); Chloride 105 mmol/L (96-108); Creatinine Clr Calc Pharmacy 95.4; Estimated Glomerular Filt Rate > 60; Magnesium 1.9 mg/dL (1.6-2.6); Potassium 4.3 mmol/L (3.3-5.1); Sodium 141 mmol/L (135-145); Total Protein 7.2 g/dL (6.5-8.0); Troponin-I High Sensitivity < 2.7 ng/L (<3.5-17.0)
[2025-05-21] MEDS: Lactated Ringers 1,000 ML 999 ML IV (21:54)
[2025-05-21 22:11] VITALS: BP 103/69; PULSE 75; RESP 18; TEMP 36.6; O2SAT 100
[2025-05-21 22:13] LABS: D Dimer High Sensitivity < 150 NG/ML
[2025-05-21 23:07] VITALS: BP 103/69; PULSE 75; RESP 18; TEMP 36.6; O2SAT 100
== END 2025-05-21 23:07 | disposition home or self-care (01) ==
PROVIDERS: Emergency Provider Student in an Organized Health Care Education/Training Program; PCP Internal Medicine
DX: R07.89 Other chest pain (principal); D50.8 Other iron deficiency anemias; R06.02 Shortness of breath; R53.1 Weakness; J45.909 Unspecified asthma, uncomplicated; F41.9 Anxiety disorder, unspecified
CPT/HCPCS: 36415; 71046; 80053; 80307; 83605; 83735; 84484; 84702; 85025; 85379; 93005; 96360; 99284; 99285; J7120

== ENCOUNTER → 2025-05-21 18:42 | Outpatient (BNV) | payer OTHER, SELFPAY | PROVIDERS: Emergency Provider Student in an Organized Health Care Education/Training Program; PCP Internal Medicine; Visit Provider Internal Medicine Cardiovascular Disease | DX: R07.9 Chest pain, unspecified (principal) | CPT/HCPCS: 93010 ==

== ENCOUNTER → 2025-05-21 20:50 | Outpatient (BNV) | payer OTHER, SELFPAY | PROVIDERS: Emergency Provider Student in an Organized Health Care Education/Training Program; PCP Internal Medicine; Visit Provider Radiology Neuroradiology | DX: R07.9 Chest pain, unspecified (principal) | CPT/HCPCS: 71046 ==